=== PATIENT | male | born 1950 | race Hispanic/Latino ===

== ENCOUNTER 2018-05-19 08:27 | Observation (INO) | payer OTHER ==
--- OUTSIDE RECORDS SUMMARY | 2018-05-19 08:29 | XMS REPORT | Clinical Summary ---
:1950 Author Organization [facility] Address [address] [place] [address] Phone Care Team Providers Name Role Phone Unavailable Primary Care Provider Unavailable Allergies Active Allergy Reactions Severity Noted Date Comments Penicillins Swelling 05/02/2018 Meloxicam Rash Low 05/02/2018 Fenoprofen Rash Low 05/02/2018 Current Medications Prescription Sig. Disp. Refills Start Date End Date Status verapamil Take 120 mg by Active (CALAN-SR) 120 MG mouth daily. ER tablet SITagliptin Take 100 mg by Active (JANUVIA) 100 MG mouth daily. tablet glipiZIDE Take 5 mg by mouth Active (GLUCOTROL) 5 MG daily. tablet simvastatin (ZOCOR) Take 20 mg by mouth Active 20 MG tablet nightly. metFORMIN Take 500 mg by Active (GLUCOPHAGE) 500 MG mouth 2 (two) times tablet daily with breakfast and dinner. tamsulosin (FLOMAX) Take 0.4 mg by Active 0.4 mg Cap 24 hr mouth daily. capsule acetaminophen-codei Take 1 tablet by 30 tablet 0 05/10/2018 05/20/2018 Active ne (TYLENOL #3) mouth every 4 300-30 mg per (four) hours as tablet needed for Pain for up to 10 days. Max Daily Amount: 6 tablets sulfamethoxazole-tr Take 1 tablet (160 14 tablet 0 05/10/2018 05/17/2018 imethoprim (BACTRIM mg of trimethoprim DS) 800-160 mg per total) by mouth 2 tablet (two) times daily for 7 days. 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 Anesthesia Event Louis Desir MD 05/10/2018 Procedure Pass 05/10/2018 Surgery Luigi Rodney PLICATION,PENILE 05/03/2018 Orders Only Family Medicine Luigi Rodney Peyronie's disease MD (Primary Dx);Induration penis plastica 05/02/2018 Hospital Encounter Pre-Admission Luigi Rodney Testing 05/02/2018 Orders Only General Internal Medicine after 05/18/2017 Social History Tobacco Use Types Packs/Day Years Used Date Never Smoker Smokeless Tobacco: Never Used Alcohol Use Drinks/Week oz/Week Comments Yes rarely Sex Assigned at Date Recorded Not on file Last Filed Vital Signs Vital Sign Reading Time Taken Blood Pressure 119/67 05/10/2018 1:15 PM CDT Pulse 82 05/10/2018 1:15 PM CDT Temperature 36.4 C (97.6 F) 05/10/2018 1:15 PM CDT Respiratory Rate 20 05/10/2018 1:15 PM CDT Oxygen Saturation 95% 05/10/2018 1:15 PM CDT Inhaled Oxygen Concentration - - Weight 91.3 kg (201 lb 3.2 oz) 05/10/2018 10:03 AM CDT Height 180.3 cm (5' 11") 05/10/2018 10:03 AM CDT Body Mass Index 28.06 05/10/2018 10:03 AM CDT Plan of Treatment Not on file Procedures Procedure Name Priority Date/Time Associated Diagnosis Comments PLICATION,PENILE 05/10/2018 11:30 AM CDT Peyronie's disease Case Notes 1 HR PER HEIDE after 05/18/2017 Results POC-Glucose meter (05/10/2018 10:34 AM) Component Value Ref Range POC-Glucose Meter 138 (H)Comment: TESTED AT [address] 70 - 110 mg/[place] [id number] Specimen Performing Laboratory Blood [facility] [address] [place] [address] CBC with platelet count + automated diff (05/10/2018 10:17 AM) Component Value Ref Range WBC 6.1 3.5 - 10.5 K/L RBC 4.64 4.63 - 6.08 M/L Hemoglobin 14.7 13.7 - 17.5 GM/DL Hematocrit 43.7 40.1 - 51.0 % MCV 94.2 (H) 79.0 - 92.2 fL MCH 31.7 25.7 - 32.2 pg MCHC 33.6 32.3 - 36.5 GM/DL RDW 12.4 11.6 - 14.4 % Platelets 255 150 - 450 K/CU MM MPV 9.8 9.4 - 12.4 fL nRBC 0 0 - 0 /100 WBC % Neutros 56 % % Lymphs 33 % % Monos 8 % % Eos 1 % % Baso 1 % # Neutros 3.44 1.78 - 5.38 K/L # Lymphs 2.02 1.32 - 3.57 K/L # Monos 0.51 0.30 - 0.82 K/L # Eos 0.08 0.04 - 0.54 K/L # Baso 0.03 0.01 - 0.08 K/L Immature Granulocytes-Relative 0 0 - 1 % Specimen Performing Laboratory Blood [address] [address] CBC with platelet count + automated diff (05/10/2018 10:17 AM) Specimen Performing Laboratory Blood Narrative The following orders were created for panel order CBC with platelet count + automated diff. Procedure Abnormality Status --------- ------ CBC with platelet count ...[[id number]]AbnormalFinal result Please view results for these tests on the individual orders. BUN and Creatinine (05/02/2018 11:21 AM) Component Value Ref Range BUN 19 7 - 21 mg/dL Creatinine 1.13Comment: Specimen slightly hemolyzed 0.57 - 1.25 mg/dL EGFR 65Comment: ESTIMATED GFR IS NOT ACCURATE mL/min/1.73 sq m CREATININE CLEARANCE IN PREDICTING GLOMERULAR FILTRATION RATE. ESTIMATED GFR IS NOT APPLICABLE FOR DIALYSIS PATIENTS. Specimen Performing Laboratory Blood [address] [address] Hemoglobin (05/02/2018 11:21 AM) Component Value Ref Range Hemoglobin 15.4 13.7 - 17.5 GM/DL Specimen Performing Laboratory Blood [facility] [address] [address] Glucose (05/02/2018 11:21 AM) Component Value Ref Range Glucose 258 (H) 70 - 105 mg/dL Specimen Performing Laboratory Blood [address] [address] Electrolytes (05/02/2018 11:21 AM) Component Value Ref Range Sodium 136 136 - 145 meq/L Potassium 3.9Comment: Specimen slightly hemolyzed 3.5 - 5.1 meq/L Chloride 104 98 - 107 meq/L CO2 22 22 - 29 meq/L Specimen Performing Laboratory Blood [address] [address] ECG 12 lead (05/02/2018 11:20 AM) Specimen Performing Laboratory GE MUSE Narrative Ventricular Rate 71 BPM Atrial Rate 71 BPM P-R Interval 160 ms QRS Duration 112 ms Q-T Interval 394 ms QTC Calculation(Bazett) 428 ms P [place] 63 degrees R [place] 25 degrees T [place] 28 degrees Sinus rhythm with Premature atrial complexes in a pattern of bigeminy Otherwise normal ECG No previous ECGs available Confirmed by MD MCBRIDE YOCHAI ([id number]) on 05/03/2018 5:56:24 AM Procedure Note Interface, External Ris In - 05/03/2018 5:56 AM CDT Ventricular Rate 71 BPM Atrial Rate 71 BPM P-R Interval 160 ms QRS Duration 112 ms Q-T Interval 394 ms QTC Calculation(Bazett) 428 ms P [place] 63 degrees R [place] 25 degrees T [place] 28 degrees Sinus rhythm with Premature atrial complexes in a pattern of bigeminy Otherwise normal ECG No previous ECGs available Confirmed by MD MCBRIDE YOCHAI ([id number]) on 05/03/2018 5:56:24 AM after 05/18/2017
--- OUTSIDE RECORDS SUMMARY | 2018-05-19 08:29 | XMS REPORT ---
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 Assessment Benign prostatic hyperplasia with N40.1 Active lower urinary tract symptoms Medications Medication Code Code Instructions Start End Status Dosage System Date Date Simvastatin ND 46635073245 20 MG Orally Active 1 tablet Once a day in the evening ND 91759081967 100 MG Orally Active 1 tablet Once a day Verapamil HCl ND 57136039996 120 MG Orally Active 1 tablet Three times a day Tamsulosin HCl ND 79222645808 0.4 MG Orally February 02Aug 01, Active 1 capsule Once a day 2017 2018 Results Name Result Date Reference Range Unit Abnormality Flag URINALYSIS AUTO W/O SCOPE (47359) ----AL neg [id number] ----NIT neg [id number] ----PROTEIN neg [id number] ----pH 5.5 [id number] ----BLO neg [id number] ----GLUCOSE 2+ [id number] ----BILIRUBIN neg [id number] ----KETONES neg [id number] ----SPECIFIC GRAVITY 1.015 [id number] PVR ----PVR 0 [id number] Summary Purpose [employer] Submission
--- OUTSIDE RECORDS SUMMARY | 2018-05-19 08:29 | XMS REPORT ---
:1950 Author Organization [facility] Address [address] [place] [address] Care Team Providers Name Role Phone CHARLI FORRESTER Unavailable Unavailable Problems This patient has no known problems. Allergies, Adverse Reactions, Alerts This patient has no known allergies or adverse reactions. Medications This patient has no known medications. Results Test Description Test Time Test Comments Text Results Atomic Results Result Comments CBC W/PLT COUNT & AUTO DIFFERENTIAL 2018-05-10 10:57:00 Test Item Value Reference Range Comments WHITE BLOOD CELL COUNT (BEAKER) (test aosz=885) 6.1 K/ L 3.5-10.5 RED BLOOD CELL COUNT (BEAKER) (test rcgx=052) 4.64 M/ L 4.63-6.08 HEMOGLOBIN (BEAKER) (test rvdr=823) 14.7 GM/DL 13.7-17.5 HEMATOCRIT (BEAKER) (test fiiy=447) 43.7 % 40.1-51.0 MEAN CORPUSCULAR VOLUME (BEAKER) (test uxfk=712) 94.2 fL 79.0-92.2 MEAN CORPUSCULAR HEMOGLOBIN (BEAKER) (test tvof=215) 31.7 pg 25.7-32.2 MEAN CORPUSCULAR HEMOGLOBIN CONC (BEAKER) (test fyvb=852) 33.6 GM/DL 32.3- 36.5 RED CELL DISTRIBUTION WIDTH (BEAKER) (test oebt=626) 12.4 % 11.6-14.4 PLATELET COUNT (BEAKER) (test bhqp=864) 255 K/CU MM 150-450 MEAN PLATELET VOLUME (BEAKER) (test jepd=254) 9.8 fL 9.4-12.4 NUCLEATED RED BLOOD CELLS (BEAKER) (test jbom=582) 0 /100 WBC 0-0 NEUTROPHILS RELATIVE PERCENT (BEAKER) (test jfkd=559) 56 % LYMPHOCYTES RELATIVE PERCENT (BEAKER) (test dcym=496) 33 % MONOCYTES RELATIVE PERCENT (BEAKER) (test xrjp=797) 8 % EOSINOPHILS RELATIVE PERCENT (BEAKER) (test tnpn=972) 1 % BASOPHILS RELATIVE PERCENT (BEAKER) (test xllk=236) 1 % NEUTROPHILS ABSOLUTE COUNT (BEAKER) (test bzxp=468) 3.44 K/ L 1.78-5.38 LYMPHOCYTES ABSOLUTE COUNT (BEAKER) (test cvst=877) 2.02 K/ L 1.32-3.57 MONOCYTES ABSOLUTE COUNT (BEAKER) (test iofd=823) 0.51 K/ L 0.30-0.82 EOSINOPHILS ABSOLUTE COUNT (BEAKER) (test wqam=775) 0.08 K/ L 0.04-0.54 BASOPHILS ABSOLUTE COUNT (BEAKER) (test jajk=796) 0.03 K/ L 0.01-0.08 IMMATURE GRANULOCYTES-RELATIVE PERCENT (BEAKER) (test 0 % 0-1 hbia=9463) POCT-GLUCOSE [id number] 10:40:00 Test Item Value Reference Range Comments POC-GLUCOSE METER (BEAKER) 138 mg/dL 70-110 TESTED AT [facility] [address] [facility] (test bkzi=2882) [facility] [address] [id number] 13:26:00 Test Item Value Reference Range Comments SODIUM (BEAKER) (test txpb=094) 136 meq/L 136-145 POTASSIUM (BEAKER) (test 3.9 meq/L 3.5-5.1 Specimen slightly hemolyzed xcww=410) CHLORIDE (BEAKER) (test 104 meq/L 98-107 jlic=087) CO2 (BEAKER) (test hwfz=276) 22 meq/L 22-29 [id number] 13:26:00 Test Item Value Reference Range Comments GLUCOSE RANDOM (BEAKER) (test ychj=624) 258 mg/dL 70-105 BUN AND [id number] 13:26:00 Test Item Value Reference Range Comments BLOOD UREA NITROGEN 19 mg/dL 7-21 (BEAKER) (test ljoq=427) CREATININE (BEAKER) (test 1.13 mg/dL 0.57-1.25 Specimen slightly vhsp=130) hemolyzed EGFR (BEAKER) (test 65 mL/min/1.73 sq m ESTIMATED GFR IS NOT tarl=8154) ACCURATE CREATININE CLEARANCE IN PREDICTING GLOMERULAR FILTRATION RATE. ESTIMATED GFR IS NOT APPLICABLE FOR DIALYSIS PATIENTS. [id number] 11:35:00 Test Item Value Reference Range Comments HEMOGLOBIN (KALEE) (test vjgz=685) 15.4 GM/DL 13.7-17.5
[2018-05-19] MEDS ORDERED: NA CHLORIDE 0.9% 500 ML ONE (08:56)
[2018-05-19 09:17] LABS: Absolute Lymphocytes (CBC) 1.9 K/uL (0.7-4.9); Absolute Monocytes 0.5 K/uL (0.1-1.3); Absolute Neutrophil 3.6 K/uL (1.8-8.0); Basophils % 0.8 % (0-1.3); Eosinophils % 1.5 % (0-4.4); Hematocrit 47.9 % (39.6-49.0); MCH 31.8 pg (27.0-35.0); MCV 94.5 fL (80-100); Monocytes % 8.5 % (3.3-12.3); RBC Red Blood Cell Count 5.07 M/uL (4.33-5.43)
--- NOTE | 2018-05-19 09:26 | RAD REPORT ---
EXAM DESCRIPTION: RAD - Chest Single View - 05/19/2018 9:12 am CLINICAL HISTORY: Intermittent chest pain COMPARISON: August 2016 TECHNIQUE: AP portable chest image was obtained 0903 hours . FINDINGS: No focal lung parenchymal process seen. Interstitial markings are prominent but stable. He art and vasculature are normal. No measurable pleural effusion and no pneumothorax. No acute bony abn ormality seen. No acute aortic findings suspected. IMPRESSION: No acute cardiopulmonary process. Above detailed chest findings are stable back to August 2016.
[2018-05-19 09:46] LABS: BUN Blood Urea Nitrogen 16 mg/dL (7-18); Bicarbonate 28 mmol/L (21-32); Glucose Level 273 mg/dL (74-106); Magnesium 2.4 mg/dL (1.8-2.4); NT PRO-BNP 49 pg/mL (<125); Potassium 3.9 mmol/L (3.5-5.1); Sodium Level 135 mmol/L (136-145); Troponin (Emerg Dept Use Only) < 0.02 ng/mL (0.0-0.045)
[2018-05-19 09:50] LABS: Urine Bacteria <20 /HPF (NONE SEEN); Urine RBC <5 /HPF (NONE SEEN)
[2018-05-19 09:50] LABS: Urine Blood NEGATIVE (NEG); Urine Glucose 2+ (NEG); Urine Protein NEGATIVE (NEG); Urine Specific Gravity 1.025 (1.005-1.030); Urine pH 5.5 (5.0-7.0)
[2018-05-19 09:51] LABS: Urine Culture Reflex Order NOT NEEDED
--- NOTE | 2018-05-19 10:16 | EDPHYS ---
Physician Documentation [facility] Name: Tim Hair Age: 67 yrs Sex: Male : 1950 Arrival Date: 05/19/2018 Time: 08:27 Bed 20 Private MD: Lucho Pathak E ED Physician Isak Linares HPI: 05/19 08:55 This 67 yrs old Male presents to ER via Ambulatory with complaints of Chest rn Pain. 08:55 The patient or guardian reports chest pain that is located primarily in the substernal rn area. 08:55 Onset: 1 week(s) ago. The pain does not radiate. Associated signs and symptoms: rn Pertinent positives: shortness of breath, Pertinent negatives: abdominal pain. 08:55 The chest pain is described as burning, a heaviness. Duration: The patient or guardian rn reports multiple episodes, that are intermittent, the episodes last approximately 5 minute(s). Modifying factors: The symptoms are alleviated by nothing. the symptoms are aggravated by nothing. Severity of pain: At its worst the pain was mild in the emergency department the pain is unchanged. The patient has not experienced similar symptoms in the past. The patient has not recently seen a physician. Reports intermittent chest pain, burning/pressure, lasts approx 5 minutes, happens randomly over last week, had penile surgery 2-3 weeks ago for penile growth, not invasive surgery. + hx of DVT LUE but after orthopedic surgery on affected arm. NO fever. + fatigue and generalized weakness. NO abd pain/vomiting/diarrhea. . Historical: - Allergies: 08:36 Mobic; ss 08:36 PENICILLINS; ss 08:36 Nalfon; ss - Home Meds: 09:11 verapamil Oral [Active]; Januvia oral oral [Active]; glipizide 5 mg Oral tab 1 tab once jl7 daily [Active]; simvastatin 20 mg Oral tab 1 tab once daily [Active]; Metformin Oral [Active]; tamsulosin 0.4 mg oral cp24 1 cap once daily [Active]; - PMHx: 08:36 Hypertension; High Cholesterol; Diabetes - NIDDM; ss - Immunization history:: Adult Immunizations up to date. - Social history:: Smoking status: Patient/guardian denies using tobacco. - Ebola Screening: : Patient denies exposure to infectious person Patient denies travel to an Ebola-affected area in the 21 days before illness onset. - Family history:: not pertinent. - Hospitalizations: : No recent hospitalization is reported. ROS: 08:58 Constitutional: Negative for fever, chills, and weight loss, Eyes: Negative for injury, rn pain, redness, and discharge, Neck: Negative for injury, pain, and swelling, Cardiovascular: + chest pain Respiratory: + sob, neg for cough Abdomen/GI: Negative for abdominal pain, nausea, vomiting, diarrhea, and constipation, MS/Extremity: Negative for injury and deformity, Skin: Negative for injury, rash, and discoloration, Neuro: Negative for headache, numbness, tingling, and seizure. Exam: 08:58 Constitutional: This is a well developed, well nourished patient who is awake, alert, rn and in no acute distress. Head/Face: Normocephalic, atraumatic. Eyes: Pupils equal round and reactive to light, extra-ocular motions intact. Lids and lashes normal. Conjunctiva and sclera are non-icteric and not injected. Cornea within normal limits. Periorbital areas with no swelling, redness, or edema. Neck: Trachea midline, no thyromegaly or masses palpated, and no cervical lymphadenopathy. Supple, full range of motion without nuchal rigidity, or vertebral point tenderness. No Meningismus. Cardiovascular: Regular rate and rhythm with a normal S1 and S2. No gallops, murmurs, or rubs. Normal PMI, no JVD. No pulse deficits. Respiratory: Lungs have equal breath sounds bilaterally, clear to auscultation and percussion. No rales, rhonchi or wheezes noted. No increased work of breathing, no retractions or nasal flaring. Abdomen/GI: Soft, non-tender, with normal bowel sounds. No distension or tympany. No guarding or rebound. No evidence of tenderness throughout. Skin: Warm, dry MS/ Extremity: Pulses equal, no cyanosis. Neurovascular intact. Full, normal range of motion. Equal circumference. Mild tenderness posterior right popliteal fossa Neuro: Awake and alert, GCS 15, oriented to person, place, time, and situation. Cranial nerves II-XII grossly intact. Motor strength 5/5 in all extremities. Sensory grossly intact. Vital Signs: 08:36 BP 167 / 83; Pulse 68; Resp 17; Temp 97.0(TE); Pulse Ox 100% on R/A; Weight 90.72 kg; 3 Height 5 ft. 11 in. (180.34 cm); Pain 0/10; 08:47 Temp 97(TE); jl7 09:38 BP 154 / 84; Pulse 67; Resp 16 S; Pulse Ox 100% on R/A; Pain 0/10; jl7 10:30 BP 125 / 79; Pulse 66; Resp 16 S; Pulse Ox 98% on R/A; jl7 11:01 BP 124 / 74; Pulse 67; Resp 18 S; Pulse Ox 97% on R/A; jl7 12:19 BP 132 / 78; Pulse 68; Resp 16 S; Pulse Ox 99% on R/A; jl7 13:00 BP 137 / 87; Pulse 64; Resp 16 S; Pulse Ox 98% on R/A; jl7 13:40 BP 146 / 72; Pulse 66; Resp 16 S; Pulse Ox 98% on R/A; Pain 0/10; jl7 08:36 Body Mass Index 27.89 (90.72 kg, 180.34 cm) formerly [facility] MDM: 08:31 Patient medically screened. rn 10:13 Differential diagnosis: acute pericarditis, anxiety, coronary artery disease chest wall rn pain, costochondritis, esophagitis, gastritis, gastroesophageal reflux disease (GERD), pericarditis, pleurisy, pneumonia, pneumothorax, stable angina. The patient was given aspirin in the Emergency Department. Data reviewed: vital signs, nurses notes, lab test result(s), EKG, radiologic studies, plain films, and as a result, I will admit patient. 10:14 Counseling: I had a detailed discussion with the patient and/or guardian regarding: the rn historical points, exam findings, and any diagnostic results supporting the discharge/admit diagnosis, lab results, radiology results, the need for further work-up and treatment in the hospital. Admission orders: after a detailed discussion of the patient's condition and case, the admit orders are written by me. ED course: Neg w/u here, but intermittent dyspnea on exertion and chest pain, will admit for cardiac w/u. . 05/19 08:46 Order name: Basic Metabolic Panel; Complete Time: 09:52 rn 05/19 08:46 Order name: CBC with Diff; Complete Time: 09:37 rn 05/19 08:46 Order name: Magnesium; Complete Time: 09:52 rn 05/19 08:46 Order name: NT PRO-BNP; Complete Time: 09:52 rn 05/19 08:46 Order name: Troponin (emerg Dept Use Only); Complete Time: 09:52 rn 05/19 08:46 Order name: Urine Microscopic Only; Complete Time: 09:52 rn 05/19 08:46 Order name: XRAY Chest (1 view); Complete Time: 09:37 rn 05/19 08:46 Order name: EKG; Complete Time: 08:47 rn 05/19 08:46 Order name: Cardiac monitoring; Complete Time: 09:01 rn 05/19 08:46 Order name: EKG - Nurse/Tech; Complete Time: 09: rn 05/19 08:46 Order name: IV Saline Lock; Complete Time: 09:05 rn 05/19 08:58 Order name: Extremity Venous Uni Ltd US; Complete Time: 10:56 rn 05/19 09:03 Order name: Urine Dipstick--Ancillary (enter results); Complete Time: 09:52 eb 05/19 08:46 Order name: Labs collected and sent; Complete Time: 09:05 rn 05/19 08:46 Order name: O2 Per Protocol; Complete Time: 09: rn 05/19 08:46 Order name: O2 Sat Monitoring; Complete Time: 09: rn 05/19 08:46 Order name: Urine Dipstick-Ancillary (obtain specimen); Complete Time: 09:00 rn 05/19 08:46 Order name: Glucose Level; Complete Time: 09:04 rn Administered Medications: 09:04 Drug: NS 0.9% 500 ml Route: IV; Rate: bolus; Site: right antecubital; jl7 09:45 Follow up: IV Status: Completed infusion jl7 Point of Care Testing: Blood Glucose: 09:00 Blood Glucose: 240 mg/dL; jl7 11:01 Blood Glucose: 195 mg/dL; jl7 Ranges: Critical Glucose Levels:Adult <50 mg/dl or >400 mg/dl <40 mg/dl or >180 mg/dl Disposition: 05/19/18 10:15 Hospitalization ordered by Che Renae for Observation. Preliminary diagnosis is Chest pain, unspecified. - Bed requested for Telemetry/MedSurg (observation). - Status is Observation. jl7 - Condition is Stable. - Problem is new. - Symptoms have improved. UTI on Admission? No Signatures: Dispatcher [employer] Manasa Olvera, RN RN Isak Hughes MD MD rn Smirch, Shelby RN RN Fernando Lowery RN RN jl7 Corrections: (The following items were deleted from the chart) 13:05 10:15 Hospitalization Ordered by Che Renae MD for Observation. Preliminary dw diagnosis is Chest pain, unspecified. Bed requested for Telemetry/MedSurg (observation). Status is Observation. Condition is Stable. Problem is new. Symptoms have improved. UTI on Admission? No. rn 13:46 13:05 05/19/2018 10:15 Hospitalization Ordered by Che Renae MD for Observation. jl7 Preliminary diagnosis is Chest pain, unspecified. Bed requested for Telemetry/MedSurg (observation). Status is Observation. Condition is Stable. Problem is new. Symptoms have improved. UTI on Admission? No. dw
--- NOTE | 2018-05-19 10:16 | ER ---
Nurse's Notes [facility] Name: Tim Hair Age: 67 yrs Sex: Male : 1950 Arrival Date: 05/19/2018 Time: 08:27 Bed 20 Private MD: Lucho Pathak E Diagnosis: Chest pain, unspecified Presentation: 05/19 08:34 Presenting complaint: Patient states: intermittent CP x 1 week. Denies pain at this ss time. Transition of care: patient was not received from another setting of care. Onset of symptoms was May 12, 2018. Risk Assessment: Do you want to hurt yourself or someone else? Patient reports no desire to harm self or others. Initial Sepsis Screen: Does the patient meet any 2 criteria? No. Patient's initial sepsis screen is negative. Does the patient have a suspected source of infection? No. Patient's initial sepsis screen is negative. Care prior to arrival: None. 08:34 Method Of Arrival: Ambulatory ss 08:34 Acuity: RAIMUNDO 3 ss Historical: - Allergies: 08:36 Mobic; ss 08:36 PENICILLINS; ss 08:36 Nalfon; ss - Home Meds: 09:11 verapamil Oral [Active]; Januvia oral oral [Active]; glipizide 5 mg Oral tab 1 tab once jl7 daily [Active]; simvastatin 20 mg Oral tab 1 tab once daily [Active]; Metformin Oral [Active]; tamsulosin 0.4 mg oral cp24 1 cap once daily [Active]; - PMHx: 08:36 Hypertension; High Cholesterol; Diabetes - NIDDM; ss - Immunization history:: Adult Immunizations up to date. - Social history:: Smoking status: Patient/guardian denies using tobacco. - Ebola Screening: : Patient denies exposure to infectious person Patient denies travel to an Ebola-affected area in the 21 days before illness onset. - Family history:: not pertinent. - Hospitalizations: : No recent hospitalization is reported. Screenin:05 Abuse screen: Denies threats or abuse. Denies injuries from another. Nutritional jl7 screening: No deficits noted. Tuberculosis screening: No symptoms or risk factors identified. Fall Risk IV access (20 points). Total Humphrey Fall Scale indicates No Risk (0-24 pts). Assessment: 09:05 General: Appears in no apparent distress. uncomfortable, Behavior is calm, cooperative, jl7 appropriate for age. Pain: Complains of pain in mid-sternal area Pain does not radiate. Pain currently is 0 out of 10 on a pain scale. at worst was 0 out of 10 on a pain scale. Quality of pain is described as pressure, Pain began 1 week ago Is intermittent. Neuro: Level of Consciousness is awake, alert, obeys commands, Oriented to person, place, time, situation. Cardiovascular: Heart tones S1 S2 present Patient's skin is warm and dry. Respiratory: Airway is patent Respiratory effort is even, unlabored, Respiratory pattern is regular, symmetrical, Breath sounds are clear bilaterally. GI: No signs and/or symptoms were reported involving the gastrointestinal system. : No signs and/or symptoms were reported regarding the genitourinary system. EENT: No signs and/or symptoms were reported regarding the EENT system. Derm: Skin is pink, warm \T\ dry. Musculoskeletal: No signs and/or symptoms reported regarding the musculoskeletal system. 10:00 Reassessment: Patient appears in no apparent distress at this time. No changes from jl7 previously documented assessment. Patient and/or family updated on plan of care and expected duration. Pain level reassessed. Patient is alert, oriented x 3, equal unlabored respirations, skin warm/dry/pink. 11:00 Reassessment: Patient appears in no apparent distress at this time. No changes from jl7 previously documented assessment. Patient and/or family updated on plan of care and expected duration. Pain level reassessed. Patient is alert, oriented x 3, equal unlabored respirations, skin warm/dry/pink. 12:19 Reassessment: Patient appears in no apparent distress at this time. Patient and/or jl7 family updated on plan of care and expected duration. Pain level reassessed. Patient is alert, oriented x 3, equal unlabored respirations, skin warm/dry/pink. 13:20 Reassessment: Patient appears in no apparent distress at this time. Patient and/or jl7 family updated on plan of care and expected duration. Pain level reassessed. Patient is alert, oriented x 3, equal unlabored respirations, skin warm/dry/pink. Vital Signs: 08:36 BP 167 / 83; Pulse 68; Resp 17; Temp 97.0(TE); Pulse Ox 100% on R/A; Weight 90.72 kg; dh3 Height 5 ft. 11 in. (180.34 cm); Pain 0/10; 08:47 Temp 97(TE); jl7 09:38 BP 154 / 84; Pulse 67; Resp 16 S; Pulse Ox 100% on R/A; Pain 0/10; jl7 10:30 BP 125 / 79; Pulse 66; Resp 16 S; Pulse Ox 98% on R/A; jl7 11:01 BP 124 / 74; Pulse 67; Resp 18 S; Pulse Ox 97% on R/A; jl7 12:19 BP 132 / 78; Pulse 68; Resp 16 S; Pulse Ox 99% on R/A; jl7 13:00 BP 137 / 87; Pulse 64; Resp 16 S; Pulse Ox 98% on R/A; jl7 13:40 BP 146 / 72; Pulse 66; Resp 16 S; Pulse Ox 98% on R/A; Pain 0/10; jl7 08:36 Body Mass Index 27.89 (90.72 kg, 180.34 cm) [facility] ED Course: 08:27 Patient arrived in ED. mr 08:28 Lucho Pathak MD is Private Physician. mr 08:31 Isak Linares MD is Attending Physician. rn 08:32 EKG done, by waste handling technician. reviewed by Isak Linares MD. at1 08:33 Fernando Colorado RN is Primary Nurse. jl7 08:36 Triage completed. ss 08:36 Arm band placed on right wrist. ss 08:59 Urine collected: clean catch specimen, clear. [facility] 09:05 Initial lab(s) drawn, by vt, sent to lab. Inserted saline lock: 22 gauge in right jl7 antecubital area, using aseptic technique. Blood collected. Patient maintains SpO2 saturation greater than 95% on room air. 09:05 Patient has correct armband on for positive identification. Placed in gown. Bed in low jl7 position. Call light in reach. Side rails up X 1. cardiovascular sonographer on. Pulse ox on. NIBP on. Warm blanket given. 09:07 XRAY Chest (1 view) In Process Unspecified. EDMS 10:04 Extremity Venous Uni Ltd US In Process Unspecified. EDMS 10:15 Che Renae MD is Hospitalizing Provider. rn 13:00 No provider procedures requiring assistance completed. Patient admitted, IV remains in jl7 place. intact, No redness/swelling at site. Administered Medications: 09:04 Drug: NS 0.9% 500 ml Route: IV; Rate: bolus; Site: right antecubital; [facility] 09:45 Follow up: IV Status: Completed infusion [facility] Point of Care Testing: Blood Glucose: 09:00 Blood Glucose: 240 mg/dL; jl7 11:01 Blood Glucose: 195 mg/dL; [facility] Ranges: Outcome: 10:15 Decision to Hospitalize by Provider. rn 13:45 Admitted to Med/surg accompanied by tech, family with patient, via wheelchair, room [facility] 229, with chart, Report called to NORBERT Gautam 13:45 Condition: stable 13:45 Discharge instructions given to patient, family, Instructed on the need for admit, Demonstrated understanding of instructions. 13:46 Patient left the ED. [facility] Signatures: Dispatcher [employer] EDKS KipPametoIsak MD MD rn Smirch, Shelby, RN RN ss Gonzales, Amanda, activities attendant EKG Tat1 Fernando Colorado RN RN 7 Sarah Beth Gray 3 Corrections: (The following items were deleted from the chart) 09:00 08:36 BP 167 / 83; Pulse 68bpm; Resp 17bpm; Pulse Ox 100% RA; 90.72 kg; Height 5 ft. 11 3 in.; BMI: 27.8; Pain 0/10;
--- NOTE | 2018-05-19 10:50 | RAD REPORT ---
EXAM DESCRIPTION: US right lower extremity venous ultrasound 05/19/2018 10:08 am CLINICAL HISTORY: Right leg pain and swelling. COMPARISON: None. FINDINGS: Right common femoral, superficial femoral, popliteal and right posterior tibial veins are compressible and demonstrate augmentation. Doppler demonstrates good flow. 5.6 centimeter cystic mass is present within the posterior right knee which is palpable compatible wi th a Patton cyst IMPRESSION: No evidence of deep venous thrombosis involving the right lower extremity. 5.6 centimeter Patton's cyst
--- NOTE | 2018-05-19 13:46 | EKG ---
Test Date: 2018-05-19 Test Time: 08:36:50 Storage Garage Attendant: ISIDRO MEASUREMENT RESULTS: Intervals: Rate: 71 ME: 168 QRSD: 104 QT: 388 QTc: 421 [place]: P: 65 ME: 168 QRS: 47 T: 34 INTERPRETIVE STATEMENTS: Normal sinus rhythm Normal ECG Compared to ECG 05/10/2012 23:34:22 Left ventricular hypertrophy no longer present ST (T wave) deviation no longer present Electronically Signed On 05-19-18 13:45:24 CDT by Miguel Bell
[2018-05-19] MEDS ORDERED: ONDANSETRON 4 MG/2 ML VIAL IV PRN (13:48)
[2018-05-19] MEDS ORDERED: ACETAMINOPHEN 500 MG TAB PO PRN (13:48)
[2018-05-19 13:56] VITALS: BMI 27.8
[2018-05-19 14:56] LABS: Thyroid Stimulating Hormone 0.814 uIU/mL (0.360-3.740); Troponin I < 0.02 ng/mL (0.0-0.045)
[2018-05-19] MEDS ORDERED: INFLUENZA VACCINE (for 3y+) 0.5 ML DOSE IMVAC ONE (15:00)
[2018-05-19] MEDS ORDERED: GLUCAGON 1 MG/VIAL IM PRN (17:10)
[2018-05-19] MEDS ORDERED: D50W 25 GM/50 ML SYRINGE IV PRN (17:10)
--- NOTE | 2018-05-19 17:18 | P.HP ---
Certification for Inpatient Patient admitted to: Observation With expected LOS: <2 Midnights Patient will require the following post-hospital care: None Practitioner: I am a practitioner with admitting privileges, knowledge of patient current condition, hospital course, and medical plan of care. Services: Services provided to patient in accordance with Admission requirements found in Title 42 Section 412.3 of the Code of Federal Regulations Patient History Date of Service: 05/20/18 Primary Care Provider: Dr Patel - Cardiology Reason for admission: Chest Pain History of Present Illness: This is a 67-year-old male with significant past medical history of hypertension , type 2 diabetes and hypercholesterol who came to the ED complaining of having some chest pain. The chest pain was on the left side and was nonradiating. Pain was worse when he 1st got up in the morning. No other complaints to offer at this time. Denies having abdominal pain nausea vomiting shortness of breath or any other associated symptoms at this time. Allergies Penicillins Allergy (Intermediate, Verified 05/10/12 21:59) Itching Home Medications: Glipizide [Glucotrol] 5 mg PO DAILY 05/19/18 Metformin HCl [Glucophage*] 500 mg PO BIDWM 05/19/18 Simvastatin 20 mg PO DAILY 05/19/18 Sitagliptin Phosphate [Januvia*] 50 mg PO DAILY 05/19/18 Tamsulosin [Flomax*] 0.4 mg PO BEDTIME 05/19/18 Verapamil HCl [Verapamil ER] 240 mg PO DAILY 05/19/18 Nitroglycerin [Nitrostat*] 0.4 mg SL PRN PRN #25 tab 05/20/18 - Past Medical/Surgical History Has patient received pneumonia vaccine in the past: Yes Diabetic: Yes -: HTN -: DM -: HLP -: back surgery x2 -: left shoulder sx -: right knee sx -: penile sx - Family History Family History: Reviewed- Non-Contributory - Social History Smoking Status: Never smoker Alcohol use: Yes CD- Drugs: No Caffeine use: Yes Place of Residence: Home Review of Systems 10-point ROS is otherwise unremarkable Physical Examination - Vital Signs Temperature: 97 F Blood Pressure: 146/72 Pulse: 66 Respirations: 16 - Physical Exam General: Alert, In no apparent distress HEENT: Atraumatic, PERRLA, Mucous membr. moist/pink, EOMI, Sclerae nonicteric Neck: Supple, 2+ carotid pulse no bruit, No LAD, Without JVD or thyroid abnormality Respiratory: Clear to auscultation bilaterally, Normal air movement Cardiovascular: Regular rate/rhythm, Normal S1 S2 Gastrointestinal: Normal bowel sounds, No tenderness Musculoskeletal: No tenderness Integumentary: No rashes Neurological: Normal gait, Normal speech, Normal strength at 5/5 x4 extr, Normal tone, Normal affect Lymphatics: No axilla or inguinal lymphadenopathy - Studies Laboratory Data (last 24 hrs) 05/19/18 09:00: WBC 6.2, Hgb 16.1, Hct 47.9, Plt Count 279 05/19/18 09:00: Sodium 135 L, Potassium 3.9, BUN 16, Creatinine 1.30, Glucose 273 H, Magnesium 2.4 Assessment and Plan - Problems (Diagnosis) (1) Chest pain Current Visit: Yes Status: Acute Plan: Atypical Chest pain. troponin x 2 negative and EKG negative -Cardiology consulted. Recc Appreciated -ECHO pending -ACS medication : ASA, Cholestrol and BB Qualifiers: Chest pain type: unspecified Qualified Code(s): R07.9 - Chest pain, unspecified (2) HTN (hypertension) Current Visit: Yes Status: Chronic Plan: restart Home medication Qualifiers: Hypertension type: essential hypertension Qualified Code(s): I10 - Essential (primary) hypertension (3) Diabetes Current Visit: Yes Status: Chronic Plan: ISS -ACHS BS Qualifiers: Diabetes mellitus type: type 2 Diabetes mellitus terminal press operator insulin use: without terminal press operator use Diabetes mellitus complication status: without complication Qualified Code(s): E11.9 - Type 2 diabetes mellitus without complications (4) Hypercholesteremia Current Visit: Yes Status: Chronic Plan: Restart hOme medication Discharge Plan: Home Plan to discharge in: 48 Hours - Advance Directives Does patient have a Living Will: No Does patient have a Durable POA for Healthcare: No - Code Status/Comfort Care Code Status Assessed: Yes Critical Care: No
[2018-05-19] MEDS ORDERED: TAMSULOSIN 0.4 MG SR CAP PO SCH (21:00)
[2018-05-19] MEDS ORDERED: ATORVASTATIN 10 MG TAB PO SCH (21:00)
[2018-05-19] MEDS: INSULIN -REGULAR HUMAN 50 UNIT/0.5 ML ML SQ SCH (21:10)
[2018-05-19 22:26] VITALS: O2SAT 96
[2018-05-20 05:17] LABS: Absolute Lymphocytes (CBC) 2.1 K/uL (0.7-4.9); Absolute Monocytes 0.5 K/uL (0.1-1.3); Absolute Neutrophil 3.2 K/uL (1.8-8.0); Basophils % 0.9 % (0-1.3); Eosinophils % 1.8 % (0-4.4); Hematocrit 42.4 % (39.6-49.0); Lymphocytes % 35.6 % (15.3-44.8); MCH 31.9 pg (27.0-35.0); MCV 93.2 fL (80-100); MPV 8.1 fL (7.6-11.3); Monocytes % 8.3 % (3.3-12.3); RBC Red Blood Cell Count 4.55 M/uL (4.33-5.43)
[2018-05-20 05:36] LABS: Albumin 3.3 g/dL (3.4-5.0); Bilirubin Total 0.5 mg/dL (0.2-1.0); Magnesium 1.9 mg/dL (1.8-2.4); Phosphorus 3.2 mg/dL (2.5-4.9); Potassium 3.9 mmol/L (3.5-5.1); Protein, Total 6.6 g/dL (6.4-8.2)
[2018-05-20] MEDS ORDERED: POTASSIUM CL SA 10 MEQ TAB PO ONE (06:30)
[2018-05-20] MEDS: INSULIN -REGULAR HUMAN 50 UNIT/0.5 ML ML SQ SCH ×2 (07:30→11:30)
[2018-05-20] MEDS ORDERED: VERAPAMIL SR 240 MG TABLET PO SCH (09:00)
[2018-05-20] MEDS ORDERED: ASPIRIN EC 81 MG TAB PO SCH (09:00)
--- NOTE | 2018-05-20 12:56 | P.SSS ---
Patient History Date of Service: 05/20/18 Primary Care Provider: Dr Patel - Cardiology Reason for admission: Chest Pain History of Present Illness: This is a 67-year-old male with significant past medical history of hypertension , type 2 diabetes and hypercholesterol who came to the ED complaining of having some chest pain. The chest pain was on the left side and was nonradiating. Pain was worse when he 1st got up in the morning. No other complaints to offer at this time. Denies having abdominal pain nausea vomiting shortness of breath or any other associated symptoms at this time. Allergies Penicillins Allergy (Intermediate, Verified 05/10/12 21:59) Itching Home Medications: Glipizide [Glucotrol] 5 mg PO DAILY 05/19/18 Metformin HCl [Glucophage*] 500 mg PO BIDWM 05/19/18 Simvastatin 20 mg PO DAILY 05/19/18 Sitagliptin Phosphate [Januvia*] 50 mg PO DAILY 05/19/18 Tamsulosin [Flomax*] 0.4 mg PO BEDTIME 05/19/18 Verapamil HCl [Verapamil ER] 240 mg PO DAILY 05/19/18 Nitroglycerin [Nitrostat*] 0.4 mg SL PRN PRN #25 tab 05/20/18 - Past Medical/Surgical History Has patient received pneumonia vaccine in the past: Yes Diabetic: Yes -: HTN -: DM -: HLP -: back surgery x2 -: left shoulder sx -: right knee sx -: penile sx - Family History Family History: Reviewed- Non-Contributory - Social History Smoking Status: Never smoker Alcohol use: Yes CD- Drugs: No Caffeine use: Yes Place of Residence: Home Review of Systems 10-point ROS is otherwise unremarkable Physical Examination - Vital Signs Temperature: 97.8 F Blood Pressure: 131/77 Pulse: 56 Respirations: 17 Pulse Ox (%): 95 - Physical Exam General: Alert, In no apparent distress HEENT: Atraumatic, PERRLA, Mucous membr. moist/pink, EOMI, Sclerae nonicteric Neck: Supple, 2+ carotid pulse no bruit, No LAD, Without JVD or thyroid abnormality Respiratory: Clear to auscultation bilaterally, Normal air movement Cardiovascular: Regular rate/rhythm, Normal S1 S2 Gastrointestinal: Normal bowel sounds, No tenderness Musculoskeletal: No tenderness Integumentary: No rashes Neurological: Normal gait, Normal speech, Normal strength at 5/5 x4 extr, Normal tone, Normal affect Lymphatics: No axilla or inguinal lymphadenopathy - Diagnosis (Problem(s)) (1) Chest pain Current Visit: Yes Status: Acute Qualifiers: Chest pain type: unspecified Qualified Code(s): R07.9 - Chest pain, unspecified (2) HTN (hypertension) Current Visit: Yes Status: Chronic Qualifiers: Hypertension type: essential hypertension Qualified Code(s): I10 - Essential (primary) hypertension (3) Diabetes Current Visit: Yes Status: Chronic Qualifiers: Diabetes mellitus type: type 2 Diabetes mellitus 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 Cardiology was consulted here in the hospital. Echocardiogram was done. Echocardiogram showed no acute abnormality. Patient then was discharged home once his chest pain had resolved under stable condition. Dr. Bell saw the patient here in the hospital as well. Asked to follow up with patient and outpatient basis in about 1-2 weeks post discharge. No new medications were no changes in all medications well. - Disposition Disposition: ROUTINE DISCHARGE Condition: GOOD Patient Discharge Instructions: Please f.u with PCP and Dr Bell in 1 to 2 week post discharge. No New medication Diet: Regular Activity: Ad jennifer
[2018-05-20 12:57] VITALS: BP 146/72; TEMP 97
--- NOTE | 2018-05-21 07:07 | CON ---
Date of Consultation: 05/19/2018 Reason For Consultation: Chest pain. History Of Present Illness: Mr. Hair is a 67-year-old male. I met him zaheer gerber 20 years ago. He has done well over the years. He has a history of diabetes, hypertension, dysl ipidemia. He came in with substernal chest pressure without any other symptoms. He has a very stron g family history of heart disease and the family was concerned and brought him in for evaluation. He told me that his chest pressure actually gets better as he walks around. It is not exertional. He denied PND, orthopnea, pedal edema, palpitations, or syncope. He just states that he has been more s hort of breath lately. Allergies: HE IS ALLERGIC TO PENICILLIN AND MOBIC. Review of Systems: Negative. Social History: Negative. Family History: Positive for heart disease. Medications: At home include glipizide, metformin, simvastatin, Januvia, Flomax, and verapamil. Physical Examination: General: Mr. Hair was in no acute distress. Vital Signs: Stable. He was afebrile. HEENT: Negative. Neck: Supple without any lymphadenopathy, JVD, thyromegaly, or bruit. Chest: Clear to auscultation and percussion. Cardiac: Revealed a regular rhythm and rate without any murmurs, gallops, or rubs. Abdomen: Benign. Extremities: Revealed no clubbing, cyanosis, or edema. Diagnostic Data: All normal except for a glucose of 270. Impression And Plan: A patient who is 67 has multiple cardiac risk factors including a very strong f amily history of heart disease, diabetes, hypertension, and dyslipidemia. His diabetes is poorly con trolled. His blood pressure is well controlled. He has ruled out for a myocardial infarction. His pain is atypical as it actually gets better when he walks. But he had been short of breath lately. He has ruled out for a myocardial infarction and I am comfortable with him going home. I will make a rrangements for him to have an outpatient echocardiogram and a stress test in the near future. FLOYD/MEAGAN Voice ID: [id number] Report ID: [id number]
--- NOTE | 2018-05-22 08:11 | ECHO ---
HEIGHT: 5 ft 11 in WEIGHT: 199 lb 9.6 oz DATE OF STUDY: 05/19/[address]: 2-DIMENSIONAL: YES M.MODE: YES DOPPLER: YES COLOR FLOW: YES TDS: NO PORTABLE: NO DEFINITY: NO BUBBLE STUDY: NO DIAGNOSIS: CHEST PAIN CARDIAC HISTORY: CATHERIZATION: YES SURGERY: NO PROSTHETIC VALVE: NO PACEMAKER: NO MEASUREMENTS (cm) DIASTOLIC (NORMALS) SYSTOLIC (NORMALS) IVSd 1.1 (0.6-1.2) LA Diam 3.7 (1.9-4.0) LVEF 59% LVIDd 3.4 (3.5-5.7) LVIDs 2.4 (2.0-3.5) %FS 30% LVPWd 1.2 (0.6-1.2) Ao Diam 3.4 (2.0-3.7) 2 DIMENSIONAL ASSESSMENT: RIGHT ATRIUM: NORMAL LEFT ATRIUM: NORMAL RIGHT VENTRICLE: NORMAL LEFT VENTRICLE: NORMAL TRICUSPID VALVE: NORMAL MITRAL VALVE: NORMAL PULMONIC VALVE: NORMAL AORTIC VALVE: NORMAL PERICARDIAL EFFUSION: NONE AORTIC ROOT: NORMAL LEFT VENTRICULAR WALL MOTION: NORMAL DOPPLER/COLOR FLOW: NORMAL COMMENTS: NORMAL 2D ECHOCARDIOGRAM WITH DOPPLER. NO WALL MOTION ABNORMALITY. NO EFFUSION. TECHNOLOGIST: AFTAB JAMES
== END 2018-05-20 13:40 | disposition home or self-care (01) ==
LOC: ER 08:27 → ERHOLD 10:19 → 2ND 13:36
PROVIDERS: ADMIT Family Medicine; ATTEND Family Medicine
DX: R07.89 Other chest pain (principal); I10 Essential (primary) hypertension; E11.9 Type 2 diabetes mellitus without complications; E78.00 Pure hypercholesterolemia, unspecified; Z88.0 Allergy status to penicillin; Z23 Encounter for immunization
CPT/HCPCS: 36415; 71045; 80048; 80053; 80061; 82962 ×4; 83735 ×2; 83880; 84100; 84443; 84484 ×4; 85025 ×2; 93005; 93306; 93971; 96360; 99285; G0008; G0378 ×2; Q2035; 81003; 81015

== ENCOUNTER 2018-07-12 05:37 | Observation (INO) | payer OTHER ==
--- OUTSIDE RECORDS SUMMARY | 2018-07-12 05:40 | XMS REPORT | Clinical Summary ---
:1950 Author Organization [facility] Address [address] [place] [address] Care Team Providers Name Role Phone Lucho Pathak Primary Care Provider Allergies Active Allergy Reactions Severity Noted Date Comments Meloxicam Rash Low 05/02/2018 Fenoprofen Rash Low 05/02/2018 Penicillins Swelling 05/02/2018 Medications Medication Sig Dispensed Refills Start Date End Date Status verapamil Take 120 mg by 0 Active (CALAN-SR) 120 MG mouth daily. ER tablet SITagliptin Take 100 mg by 0 Active (JANUVIA) 100 MG mouth daily. tablet glipiZIDE Take 5 mg by mouth 0 Active (GLUCOTROL) 5 MG daily. tablet simvastatin Take 20 mg by mouth 0 Active (ZOCOR) 20 MG nightly. tablet metFORMIN Take 500 mg by 0 Active (GLUCOPHAGE) 500 mouth 2 (two) times MG tablet daily with breakfast and dinner. tamsulosin Take 0.4 mg by 0 Active (FLOMAX) 0.4 mg mouth daily. Cap 24 hr capsule sulfamethoxazole-t Take 1 tablet (160 14 tablet 0 05/10/2018 05/17/2018 rimethoprim mg of trimethoprim (BACTRIM DS) total) by mouth 2 800-160 mg per (two) times daily tablet for 7 days. acetaminophen-code Take 1 tablet by 30 tablet 0 05/10/2018 05/20/2018 ine (TYLENOL #3) mouth every 4 300-30 mg per (four) hours as tablet needed for Pain for up to 10 days. 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 Encounters Date Type Specialty Care Team Description 05/10/2018 Surgery Luigi Rodney PLICATION,PENILE 05/10/2018 Anesthesia Event Louis Desir MD 05/10/2018 Hospital Encounter Luigi Rodney, Peyronie's disease; MD Caicedo penis plastica 05/03/2018 Orders Only Family Medicine Luigi Rodney, Peyronie's disease ( Primary Dx); MD Caicedo penis plastica 05/02/2018 Hospital Encounter Pre-Admission Luigi Rodney, Testing 05/02/2018 Orders Only General Internal Medicine after 07/11/2017 Social History Tobacco Use Types Packs/Day Years Used Date Never Smoker Smokeless Tobacco: Never Used Alcohol Use Drinks/Week oz/Week Comments Yes rarely Sex Assigned at Date Recorded Not on file Job Start Date Occupation Industry Not on file Not on file Not on file Travel History Travel Start Travel End No recent travel history available. Last Filed Vital Signs Vital Sign Reading [...] disease Case Notes 1 HR PER HEIDE POCT-GLUCOSE METER Routine 05/10/2018 10:34 AM Results for this CDT procedure are in the results section. CBC W/PLT COUNT & AUTO Routine 05/10/2018 10:17 AM Peyronie's Results for this DIFFERENTIAL CDT disease procedure are in Induration penis the results plastica section. CBC W/PLT COUNT & AUTO Routine 05/10/2018 10:17 AM Peyronie's Results for this DIFFERENTIAL CDT disease procedure are in Induration penis the results plastica section. GLUCOSE Routine 05/02/2018 11:21 AM Results for this CDT procedure are in the results section. BUN AND CREATININE Routine 05/02/2018 11:21 AM Results for this CDT procedure are in the results section. ELECTROLYTE PANEL Routine 05/02/2018 11:21 AM Results for this CDT procedure are in the results section. HEMOGLOBIN Routine 05/02/2018 11:21 AM Results for this CDT procedure are in the results section. ECG 12-LEAD Routine 05/02/2018 11:20 AM CDT Procedure Note - Interface, External Ris In - 05/02/2018 4:55 PM CDT Ventricular Rate 71 BPM Atrial Rate 71 BPM P-R Interval 160 ms QRS Duration 112 ms Q-T Interval 394 ms QTC Calculation(Bazett) 428 ms P [place] 63 degrees R [place] 25 degrees T [place] 28 degrees Sinus rhythm with Premature atrial complexes in a pattern of bigeminy Otherwise normal ECG No previous ECGs available ECG 12-LEAD Routine 05/02/2018 11:20 AM CDT after 07/11/2017 Results POC-Glucose meter (05/10/2018 10:34 AM CDT) POC-Glucose Meter 138 (H)Comment: TESTED AT 70 - 110 mg/dL [address] [address] Specimen Blood Performing Organization Address City/State/Zipcode Phone Number [address] [address] [phone] CENTER CBC with platelet count + automated diff (05/10/2018 10:17 AM CDT) WBC 6.1 3.5 - 10.5 K/L [facility] RBC 4.64 4.63 - 6.08 M/L [facility] Hemoglobin 14.7 13.7 - 17.5 GM/DL [facility] Hematocrit 43.7 40.1 - 51.0 % [facility] MCV 94.2 (H) 79.0 - 92.2 fL [facility] MCH 31.7 25.7 - 32.2 pg [facility] MCHC 33.6 32.3 - 36.5 GM/DL [facility] RDW 12.4 11.6 - 14.4 % [facility] Platelets 255 150 - 450 K/CU MM [facility] MPV 9.8 9.4 - 12.4 fL [facility] nRBC 0 0 - 0 /100 WBC [facility] % Neutros 56 % [facility] % Lymphs 33 % [facility] % Monos 8 % [facility] % Eos 1 % [facility] % Baso 1 % [facility] # Neutros 3.44 1.78 - 5.38 K/L [facility] # Lymphs 2.02 1.32 - 3.57 K/L [facility] # Monos 0.51 0.30 - 0.82 K/L [facility] # Eos 0.08 0.04 - 0.54 K/L [facility] # Baso 0.03 0.01 - 0.08 K/L [facility] Immature Granulocytes-Relative 0 0 - 1 % [facility] Specimen Blood Performing Organization Address City/State/Zipcode Phone Number [facility] [address] [place] [address] [phone] CENTER BUN and Creatinine (05/02/2018 11:21 AM CDT) BUN 19 7 - 21 mg/dL [facility] Creatinine 1.13Comment: Specimen 0.57 - 1.25 mg/dL [facility] slightly hemolyzed [facility] EGFR 65Comment: ESTIMATED GFR IS mL/min/1.73 sq m [facility] NOT ACCURATE CREATININE [facility] CLEARANCE IN PREDICTING GLOMERULAR FILTRATION RATE. ESTIMATED GFR IS NOT APPLICABLE FOR DIALYSIS PATIENTS. Specimen Blood Performing Organization Address City/[facility] Phone Number [address] [address] [place] Hemoglobin (05/02/2018 11:21 AM CDT) Hemoglobin 15.4 13.7 - 17.5 GM/DL [facility] Specimen Blood Performing Organization Address [facility] Phone Number [address] [address] [phone] [place] Glucose (05/02/2018 11:21 AM CDT) Glucose 258 (H) 70 - 105 mg/dL [facility] Specimen Blood Performing Organization Address [facility] Phone Number [address] [address] [place] Electrolytes (05/02/2018 11:21 AM CDT) Sodium 136 136 - 145 meq/L [facility] Potassium 3.9Comment: Specimen slightly 3.5 - 5.1 meq/L [facility] hemolyzed [facility] Chloride 104 98 - 107 meq/L [facility] CO2 22 22 - 29 meq/L [facility] Specimen Blood Performing Organization Address [facility] Phone Number [address] [address] [phone] CENTER ECG 12 lead (05/02/2018 11:20 AM CDT) Narrative Performed At Ventricular Rate 71 BPM GE MUSE Atrial Rate 71 BPM P-R Interval 160 ms QRS Duration 112 ms Q-T Interval 394 ms QTC Calculation(Bazett) 428 ms P [place] 63 degrees R [place] 25 degrees T [place] 28 degrees Sinus rhythm with Premature atrial complexes in a pattern of bigeminy Otherwise normal ECG No previous ECGs available Confirmed by MD MCBRIDE YOCHAI ([id number]) on 05/03/2018 5:56:24 AM Procedure Note Interface, External Ris In - 05/03/2018 5:56 AM CDT Ventricular Rate 71 BPM Atrial Rate 71 BPM P-R Interval 160 ms QRS Duration 112 ms Q-T Interval 394 ms QTC Calculation(Bazett) 428 ms P [place] 63 degrees R [place] 25 degrees T [place] 28 degrees Sinus rhythm with Premature atrial complexes in a pattern of bigeminy Otherwise normal ECG No previous ECGs available Confirmed by MD RAE, KATE ([id number]) on 05/03/2018 5:56:24 AM Performing Organization Address City/State/Zipcode Phone Number GE MUSE after 07/11/2017 Insurance Payer Benefit Plan / Group Subscriber ID Type Phone Address MEDICARE MEDICARE A B xxxxxxxxxxx Medicare AETNA - MGD CARE AETNA INDEMNITY NON CONTR xxxxxx Comm Advance Directives Patient has advance care planning documents, and code status on file. For more information, please contact:[address] [phone] Code Status Date Activated Date Inactivated Comments Full Code 05/10/2018 9:48 AM 05/10/2018 4:33 PM This code status was determined by: Patient
--- OUTSIDE RECORDS SUMMARY | 2018-07-12 05:40 | XMS REPORT ---
:1950 [facility] Address [address] [place] [address] Care Team Providers Name Role Phone CHARLI [...] Comments WHITE BLOOD CELL COUNT (BEAKER) (test pwlh=800) 6.1 K/ L 3.5-10.5 RED BLOOD CELL COUNT (BEAKER) (test uxxa=822) 4.64 M/ L 4.63-6.08 HEMOGLOBIN (BEAKER) (test umym=989) 14.7 GM/DL 13.7-17.5 HEMATOCRIT (BEAKER) (test upxp=275) 43.7 % 40.1-51.0 MEAN CORPUSCULAR VOLUME (BEAKER) (test cfkl=567) 94.2 fL 79.0-92.2 MEAN CORPUSCULAR HEMOGLOBIN (BEAKER) (test enjc=754) 31.7 pg 25.7-32.2 MEAN CORPUSCULAR HEMOGLOBIN CONC (BEAKER) (test gpzi=013) 33.6 GM/DL 32.3- 36.5 RED CELL DISTRIBUTION WIDTH (BEAKER) (test butc=619) 12.4 % 11.6-14.4 PLATELET COUNT (BEAKER) (test krry=278) 255 K/CU MM 150-450 MEAN PLATELET VOLUME (BEAKER) (test ygmo=823) 9.8 fL 9.4-12.4 NUCLEATED RED BLOOD CELLS (BEAKER) (test xnwv=351) 0 /100 WBC 0-0 NEUTROPHILS RELATIVE PERCENT (BEAKER) (test pobr=123) 56 % LYMPHOCYTES RELATIVE PERCENT (BEAKER) (test gaev=752) 33 % MONOCYTES RELATIVE PERCENT (BEAKER) (test qbxa=004) 8 % EOSINOPHILS RELATIVE PERCENT (BEAKER) (test osdv=539) 1 % BASOPHILS RELATIVE PERCENT (BEAKER) (test nfvo=742) 1 % NEUTROPHILS ABSOLUTE COUNT (BEAKER) (test uxgy=760) 3.44 K/ L 1.78-5.38 LYMPHOCYTES ABSOLUTE COUNT (BEAKER) (test tzme=567) 2.02 K/ L 1.32-3.57 MONOCYTES ABSOLUTE COUNT (BEAKER) (test jpup=178) 0.51 K/ L 0.30-0.82 EOSINOPHILS ABSOLUTE COUNT (BEAKER) (test jbyf=013) 0.08 K/ L 0.04-0.54 BASOPHILS ABSOLUTE COUNT (BEAKER) (test tlki=819) 0.03 K/ L 0.01-0.08 IMMATURE GRANULOCYTES-RELATIVE PERCENT (BEAKER) (test 0 % 0-1 jdeo=9702) POCT-GLUCOSE [id number] 10:40:00 Test Item Value Reference Range Comments POC-GLUCOSE METER (BEAKER) 138 mg/dL 70-110 TESTED AT [facility] [address] [facility] (test bqpi=7419) [facility] [address] [id number] 13:26:00 Test Item Value Reference Range Comments SODIUM (BEAKER) (test uuyr=653) 136 meq/L 136-145 POTASSIUM (BEAKER) (test 3.9 meq/L 3.5-5.1 Specimen slightly hemolyzed edll=084) CHLORIDE (BEAKER) (test 104 meq/L 98-107 kpyl=674) CO2 (BEAKER) (test bxjz=722) 22 meq/L 22-29 [id number] 13:26:00 Test Item Value Reference Range Comments GLUCOSE RANDOM (BEAKER) (test gpaw=541) 258 mg/dL 70-105 BUN AND [id number] 13:26:00 Test Item Value Reference Range Comments BLOOD UREA NITROGEN 19 mg/dL 7-21 (BEAKER) (test weot=087) CREATININE (BEAKER) (test 1.13 mg/dL 0.57-1.25 Specimen slightly hksv=638) hemolyzed EGFR (BEAKER) (test 65 mL/min/1.73 sq m ESTIMATED GFR IS NOT glyn=6475) ACCURATE CREATININE CLEARANCE IN PREDICTING GLOMERULAR FILTRATION RATE. ESTIMATED GFR IS NOT APPLICABLE FOR DIALYSIS PATIENTS. [id number] 11:35:00 Test Item Value Reference Range Comments HEMOGLOBIN (KALEE) (test kntv=743) 15.4 GM/DL 13.7-17.5
--- OUTSIDE RECORDS SUMMARY | 2018-07-12 05:40 | XMS REPORT ---
[...] Status Dosage System Date Date Simvastatin ND 26687350691 20 MG Orally Active 1 tablet Once a day in the evening ND 81865435709 100 MG Orally Active 1 tablet Once a day Verapamil HCl ND 81504873195 120 MG Orally Active 1 tablet Three times a day Tamsulosin HCl ND 14998651318 0.4 MG Orally February 02Aug 01, Active 1 capsule Once a day 2017 2018 Results Name Result Date Reference Range Unit Abnormality Flag URINALYSIS AUTO W/O SCOPE (73964) ----AL neg [id number] ----NIT neg [id number] ----PROTEIN neg [id number] ----pH 5.5 20180202 ----BLO neg [id number] ----GLUCOSE 2+ [id number] ----BILIRUBIN neg [id number] ----KETONES neg [id number] ----SPECIFIC GRAVITY 1.015 20180202 PVR ----PVR 0 [id number] Summary Purpose eClinicalWorks Submission
[2018-07-12] MEDS ORDERED: LIDOCAINE 1% MPF 30 ML VIAL ONE (06:27)
[2018-07-12] MEDS ORDERED: DERMABOND SKIN ADHESIVE TOP ONE (06:42)
[2018-07-12 06:43] LABS: Absolute Lymphocytes (CBC) 2.1 K/uL (0.7-4.9); Absolute Monocytes 0.5 K/uL (0.1-1.3); Absolute Neutrophil 3.9 K/uL (1.8-8.0); Basophils % 0.9 % (0-1.3); Eosinophils % 1.1 % (0-4.4); Hematocrit 45.5 % (39.6-49.0); Lymphocytes % 31.9 % (15.3-44.8); MPV 8.2 fL (7.6-11.3); Monocytes % 7.3 % (3.3-12.3); RBC Red Blood Cell Count 4.84 M/uL (4.33-5.43)
[2018-07-12 06:45] LABS: Protime INR 1.02
[2018-07-12 06:59] LABS: BUN Blood Urea Nitrogen 16 mg/dL (7-18); Bicarbonate 27 mmol/L (21-32); Glucose Level 236 mg/dL (74-106); Potassium 4.1 mmol/L (3.5-5.1); Sodium Level 140 mmol/L (136-145); Troponin (Emerg Dept Use Only) < 0.02 ng/mL (0.0-0.045)
--- NOTE | 2018-07-12 08:14 | EDPHYS ---
Physician Documentation [facility] Name: Tim Hair Age: 67 yrs Sex: Male : 1950 Arrival Date: 07/12/2018 Time: 05:40 Bed 16 Private MD: ED Physician Isak Linares HPI: 07/12 05:53 This 67 yrs old Male presents to ER via Unassigned with complaints of Fall rn Injury. 05:53 The patient has experienced syncope. Onset: The symptoms/episode began/occurred just rn prior to arrival. Associated injury: Head/face:. Associated signs and symptoms: Pertinent positives: confusion, diaphoresis, dizziness, headache. Current symptoms: confusion, headache. The patient has not experienced similar symptoms in the past. REports got up out of bed then woke up on floor, family reports hit head on edge of nightstand, + cut face, family reports "lots of blood", unable to stand on own or walk on own, family reports unbalanced, was normal when went to bed. NO recent vomiting/diarrhea/chest pain/sob/fever/cough. . Historical: - Allergies: 05:45 Mobic; jb4 05:45 PENICILLINS; jb4 05:45 Nalfon; jb4 05:45 Ibuprofen; jb4 - Home Meds: 05:45 glipizide 5 mg Oral tab 1 tab once daily [Active]; Verapamil Oral [Active]; tamsulosin jb4 0.4 mg Oral cp24 1 cap once daily [Active]; simvastatin 20 mg Oral tab 1 tab once daily [Active]; Metformin Oral [Active]; Januvia Oral [Active]; - PMHx: 05:45 Diabetes - NIDDM; High Cholesterol; Hypertension; jb4 - PSHx: 05:45 penile plication; jb4 - Immunization history:: Adult Immunizations up to date, Flu vaccine is up to date. - Social history:: Smoking status: Patient/guardian denies using tobacco, Patient uses alcohol, but reports only rare drinking. - Immunization history: Last tetanus immunization: - up to date. - Family history:: not pertinent. - Ebola Screening: : No symptoms or risks identified at this time. - Hospitalizations: : No recent hospitalization is reported. ROS: 05:53 Constitutional: Negative for fever, chills, and weight loss, Eyes: + right periorbital commercial litigation attorney and lacerations Neck: Negative for injury, pain, and swelling, Cardiovascular: Negative for chest pain, palpitations, and edema, Respiratory: Negative for shortness of breath, cough, wheezing, and pleuritic chest pain, Abdomen/GI: Negative for abdominal pain, nausea, vomiting, diarrhea, and constipation, MS/Extremity: + right elbow pain Skin: +lacerations Neuro: Negative for weakness, numbness, tingling, and seizure. Exam: 05:53 Constitutional: This is a well developed, well nourished patient who is awake, no rn social work distress Head/Face: Normocephalic, + right periorbital ecchymosis with multiple irregular lacerations, avulsion with missing tissue right infraorbital region , 2cm irregular superficial laceration that extends to lateral margin of eye but does not involve lateral canthus/eyelids, 4cm right supraorbital laceration without active bleeding. Eyes: Pupils equal round and reactive to light, extra-ocular motions intact. Lids and lashes normal. Conjunctiva and sclera are non-icteric and not injected. Cornea within normal limits. ENT: no oral trauma, no nasal trauma Neck: Trachea midline, no vertebral point tenderness. Chest/axilla: Normal chest wall appearance and motion. Nontender with no deformity. No lesions are appreciated. Cardiovascular: Regular rate and rhythm with a normal S1 and S2. No gallops, murmurs, or rubs. Normal PMI, no JVD. No pulse deficits. Respiratory: Lungs have equal breath sounds bilaterally, clear to auscultation. No rales, rhonchi or wheezes noted. No increased work of breathing, no retractions or nasal flaring. Abdomen/GI: Soft, non-tender, No distension . No guarding or rebound. No evidence of tenderness throughout. Back: No spinal tenderness. MS/ Extremity: Pulses equal, no cyanosis. Neurovascular intact. Full, normal range of motion. Equal circumference. Neuro: Awake and alert, GCS 15, oriented to person, place, time, and situation. Cranial nerves II-XII grossly intact. Motor strength 5/5 in all extremities. Sensory grossly intact. Cerebellar exam normal. Vital Signs: 05:45 BP 167 / 75; Pulse 74; Resp 16; Temp 97.9(O); Pulse Ox 97% on R/A; Weight 90.72 kg (R); jb4 Height 5 ft. 11 in. (180.34 cm) (R); 06:45 BP 138 / 84; Pulse 69; Resp 14; Pulse Ox 98% on R/A; jb4 08:06 BP 151 / 86 Supine; Pulse 68; Resp 15; Pulse Ox 100% on R/A; dh3 08:08 BP 149 / 91 Sitting; Pulse 72; Resp 17; Pulse Ox 100% on R/A; dh3 08:10 BP 136 / 90 Standing; Pulse 75; Resp 18; Pulse Ox 99% on R/A; dh3 10:00 BP 127 / 85; Pulse 64; Resp 13; Pulse Ox 98% ; bp 11:00 BP 125 / 75; Pulse 62; Resp 12; Pulse Ox 97% ; bp 12:00 BP 115 / 82; Pulse 62; Resp 14; Pulse Ox 98% ; bp 12:57 BP 122 / 82; Pulse 58; Resp 12; Pulse Ox 99% ; bp 05:45 Body Mass Index 27.89 (90.72 kg, 180.34 cm) jb4 Montgomery Coma Score: 05:50 Eye Response: spontaneous(4). Verbal Response: oriented(5). Motor Response: obeys ak1 commands(6). Total: 15. 06:45 Eye Response: spontaneous(4). Verbal Response: oriented(5). Motor Response: obeys jb4 commands(6). Total: 15. Trauma Score (Adult): 05:50 Eye Response: spontaneous(1); Verbal Response: oriented(1); Motor Response: obeys ak1 commands(2); Systolic BP: > 89 mm Hg(4); Respiratory Rate: 10 to 29 per min(4); Montgomery Score: 15; Trauma Score: 12 06:45 Eye Response: spontaneous(1); Verbal Response: oriented(1); Motor Response: obeys jb4 commands(2); Systolic BP: > 89 mm Hg(4); Respiratory Rate: 10 to 29 per min(4); Montgomery Score: 15; Trauma Score: 12 Laceration: 06:55 Wound Repair of 2cm ( 0.8in ) subcutaneous laceration to right lateral eye margin. rn Distal neuro/vascular/tendon intact. Anesthesia: Regional Block with 4 mls of 1% lidocaine. Wound prep: Extensive cleansing by nuclear fuel processing technician by nurse. Skin closed with 5 5-0 fast absorbing gut using interrupted sutures and sterile technique. Patient tolerated well. 06:55 Wound Repair of 5cm ( 2.0in ) subcutaneous laceration to right supraorbital region. rn Anesthesia: Regional Block with 4 mls of 1% lidocaine. Wound prep: Extensive cleansing by nuclear fuel processing technician. Skin closed with 6 5-0 fast absorbing gut using interrupted sutures and sterile technique. Dressed with steri-strips. Patient tolerated well. MDM: 05:51 Patient medically screened. rn 08:10 Data reviewed: vital signs, nurses notes. Data interpreted: Pulse oximetry: on room air kb is 98 %. Interpretation: normal. Counseling: I had a detailed discussion with the patient and/or guardian regarding: the historical points, exam findings, and any diagnostic results supporting the discharge/admit diagnosis, lab results, radiology results, the need for further work-up and treatment in the hospital. Physician consultation: Sukhwinder Jeong MD was contacted at 08:12, regarding admission, to the telemetry unit. patient's condition, and will see patient in ED, shortly. 07/12 05:52 Order name: Basic Metabolic Panel; Complete Time: 07:00 rn 07/12 05:52 Order name: CBC with Diff; Complete Time: 06:57 rn 07/12 05:52 Order name: CT Head C Spine; Complete Time: 09:06 rn 07/12 05:52 Order name: Protime (+inr); Complete Time: 06:57 rn 07/12 05:52 Order name: Ptt, Activated; Complete Time: 06:57 rn 07/12 05:52 Order name: Troponin (emerg Dept Use Only); Complete Time: 07:00 rn 07/12 05:52 Order name: EKG; Complete Time: 05:54 rn 07/12 05:52 Order name: Cardiac monitoring; Complete Time: 06:14 rn 07/12 05:52 Order name: EKG - Nurse/Tech; Complete Time: 06:35 rn 07/12 05:52 Order name: IV Saline Lock; Complete Time: 06:35 rn 07/12 05:52 Order name: CT Facial Bones W/O Con; Complete Time: 09:06 rn 07/12 07:50 Order name: Elbow Right 3 View XRAY; Complete Time: 11:13 kb 07/12 05:52 Order name: Labs collected and sent; Complete Time: 06:35 rn 07/12 05:52 Order name: NPO; Complete Time: 06:14 rn 07/12 05:52 Order name: O2 Per Protocol; Complete Time: 06:14 rn 07/12 05:52 Order name: O2 Sat Monitoring; Complete Time: 06:14 rn 07/12 05:52 Order name: Glucose Level; Complete Time: 06:14 rn 07/12 07:26 Order name: Orthostatics; Complete Time: 08:17 kb Administered Medications: 06:15 Drug: Lidocaine (1 %) 1 application {Note: administered by ER physician..} Volume: 20 jb4 ml; Route: Infiltration; 08:26 Drug: [place] (7.5 mg-325 mg) 1 tabs Route: PO; ph 10:06 Follow up: Response: No adverse reaction; Pain is decreased ph Disposition: 07/12/18 08:13 Hospitalization ordered by Sukhwinder Jeong for Observation. Preliminary diagnosis are Syncope and collapse, Laceration without foreign body of scalp - Face, Superficial injury of head, Contusion of right elbow. - Bed requested for Telemetry/MedSurg (observation). - Status is Observation. bp - Condition is Stable. - Problem is new. - Symptoms have improved. UTI on Admission? No Addendum: 07/14/2018 07:02 Co-signature as Attending Physician, Isak Linares MD. r n Signatures: Dispatcher [employer] EDUT Ellyn Pennington, SLITTER AND CUTTER OPERATOR-C SLITTER AND CUTTER OPERATOR-Ckb Isak Linares MD MD rn Smirch, Shelby, RN RN Ashleigh Rodriguez RN RN Rivera Vogt RN RN jb4 Konrad Sykes RN RN bp Corrections: (The following items were deleted from the chart) 07/12 06:57 05:53 Constitutional: This is a well developed, well nourished patient who is awake, no rn social work distress Head/Face: Normocephalic, + right periorbital ecchymosis with multiple irregular lacerations, 4cm superficial and irregular to right infraorbital region, 2cm irregular superficial laceration that extends to lateral margin of eye but does not involve lateral canthus/eyelids, 4cm right supraorbital laceration without active bleeding. Eyes: Pupils equal round and reactive to light, extra-ocular motions intact. Lids and lashes normal. Conjunctiva and sclera are non-icteric and not injected. Cornea within normal limits. ENT: no oral trauma, no nasal trauma Neck: Trachea midline, no vertebral point tenderness. Chest/axilla: Normal chest wall appearance and motion. Nontender with no deformity. No lesions are appreciated. Cardiovascular: Regular rate and rhythm with a normal S1 and S2. No gallops, murmurs, or rubs. Normal PMI, no JVD. No pulse deficits. Respiratory: Lungs have equal breath sounds bilaterally, clear to auscultation. No rales, rhonchi or wheezes noted. No increased work of breathing, no retractions or nasal flaring. Abdomen/GI: Soft, non-tender, No distension . No guarding or rebound. No evidence of tenderness throughout. Back: No spinal tenderness. MS/ Extremity: Pulses equal, no cyanosis. Neurovascular intact. Full, normal range of motion. Equal circumference. Neuro: Awake and alert, GCS 15, oriented to person, place, time, and situation. Cranial nerves II-XII grossly intact. Motor strength 5/5 in all extremities. Sensory grossly intact. Cerebellar exam normal. rn 10:06 08:13 Hospitalization Ordered by Sukhwinder Jeong MD for Inpatient Admission. Preliminary kb diagnosis is Syncope and collapse; Laceration without foreign body of scalp - Face; Superficial injury of head; Contusion of right elbow. Bed requested for Telemetry/MedSurg (Inpatient). Status is Inpatient Admission. Condition is Stable. Problem is new. Symptoms have improved. UTI on Admission? No. kb 12:54 10:06 07/12/2018 08:13 Hospitalization Ordered by Sukhwinder Jeong MD for Observation. ss Preliminary diagnosis is Syncope and collapse; Laceration without foreign body of scalp - Face; Superficial injury of head; Contusion of right elbow. Bed requested for Telemetry/MedSurg (observation). Status is Observation. Condition is Stable. Problem is new. Symptoms have improved. UTI on Admission? No. kb 13:22 12:54 07/12/2018 08:13 Hospitalization Ordered by Sukhwinder Jeong MD for Observation. bp Preliminary diagnosis is Syncope and collapse; Laceration without foreign body of scalp - Face; Superficial injury of head; Contusion of right elbow. Bed requested for Telemetry/MedSurg (observation). Status is Observation. Condition is Stable. Problem is new. Symptoms have improved. UTI on Admission? No. ss
--- NOTE | 2018-07-12 08:14 | ER ---
Nurse's Notes [facility] Name: Tim Hair Age: 67 yrs Sex: Male : 1950 Arrival Date: 07/12/2018 Time: 05:40 Bed 16 Private MD: Diagnosis: Syncope and collapse;Laceration without foreign body of scalp-Face;Superficial injury of head;Contusion of right elbow Presentation: 07/12 05:45 Presenting complaint: states: He stood up to go to the restroom and fell and hit jb4 his head on the bed side table. He was unable to walk right we had to help him to the car. Transition of care: patient was not received from another setting of care. Onset of symptoms was July 12, 2018. 05:45 Method Of Arrival: Wheelchair jb4 05:45 Acuity: RAIMUNDO 2 jb4 05:45 Risk Assessment: Do you want to hurt yourself or someone else? Patient reports no jb4 desire to harm self or others. Initial Sepsis Screen: Does the patient meet any 2 criteria? No. Patient's initial sepsis screen is negative. Does the patient have a suspected source of infection? No. Patient's initial sepsis screen is negative. Care prior to arrival: None. 06:01 Mechanism of Injury: Fall from standing position. Trauma event details: Injury occurred ak1 in the [facility], Injury occurred: at home. Injury occurred: July 12, 2018. Triage Assessment: 05:56 General: Appears uncomfortable, Behavior is cooperative, anxious. Pain: Complains of ak1 pain in right eye. EENT: Eyes laceration to right eye lid and below right eye. Neuro: Level of Consciousness is awake, alert, obeys commands, Oriented to person, place, time, situation, Ironing Pleater are equal bilaterally Moves all extremities. Speech is normal. Cardiovascular: No deficits noted. Respiratory: No deficits noted. GI: No signs and/or symptoms were reported involving the gastrointestinal system. : No signs and/or symptoms were reported regarding the genitourinary system. Derm: Skin is diaphoretic, Skin temperature is cool. Musculoskeletal: No signs and/or symptoms reported regarding the musculoskeletal system. Trauma Activation: Alert Physician: ED Physician; Name: Vijay; Notified At: 05:41; Arrived At: 05:41 Physician: General Surgeon; Name: ; Notified At: 05:41; Arrived At: Physician: Radiology; Name: Angeli Mccollum; Notified At: 05:41; Arrived At: 05:43 Physician: Respiratory; Name: ; Notified At: 05:41; Arrived At: Physician: Lab; Name: ; Notified At: 05:41; Arrived At: Historical: - Allergies: 05:45 Mobic; jb4 05:45 PENICILLINS; jb4 05:45 Nalfon; jb4 05:45 Ibuprofen; jb4 - Home Meds: 05:45 glipizide 5 mg Oral tab 1 tab once daily [Active]; Verapamil Oral [Active]; tamsulosin jb4 0.4 mg Oral cp24 1 cap once daily [Active]; simvastatin 20 mg Oral tab 1 tab once daily [Active]; Metformin Oral [Active]; Januvia Oral [Active]; - PMHx: 05:45 Diabetes - NIDDM; High Cholesterol; Hypertension; jb4 - PSHx: 05:45 penile plication; jb4 - Immunization history:: Adult Immunizations up to date, Flu vaccine is up to date. - Social history:: Smoking status: Patient/guardian denies using tobacco, Patient uses alcohol, but reports only rare drinking. - Immunization history: Last tetanus immunization: - up to date. - Family history:: not pertinent. - Ebola Screening: : No symptoms or risks identified at this time. - Hospitalizations: : No recent hospitalization is reported. Screenin:50 Abuse screen: Denies threats or abuse. Denies injuries from another. Tuberculosis ak1 screening: No symptoms or risk factors identified. 06:00 Nutritional screening: No deficits noted. Fall Risk Fall in past 12 months (25 points). jb4 IV access (20 points). Total Humphrey Fall Scale indicates High Risk Score (45 or more points). Fall prevention measures have been instituted. Side Rails Up X 2 Placed Close to Nursing Station Frequent Obs/Assessments Occuring Family Present and informed to notify staff if the need to leave the bedside. Primary Survey: 05:50 NO uncontrolled hemorrhage observed. A: The patient is alert. Airway: patent. ak1 Breathing/Chest: Respiratory pattern: regular. Circulation: Skin temperature: diaphoretic, cool. Disability Alert. Exposure/Environment: There is no evidence of uncontrolled external bleeding. Obvious injury(ies) are noted at this time: laceration right eye lid, laceration below right eye. 06:45 Reassessment Breathing/Chest Respiratory pattern Regular Respiratory effort Spontaneous jb4 Unlabored Chest inspection Symmetrical. Secondary Survey: 05:50 HEENT: Head No injury/deformity Face No injury/deformity Eyes: Other laceration to ak1 right eye lid, below right eye. Gastrointestinal: No deficits noted. : No signs and/or symptoms were reported regarding the genitourinary system. Musculoskeletal: No signs and/or symptoms reported regarding the musculoskeletal system. Assessment: 05:50 General: Appears uncomfortable, Behavior is cooperative, anxious. Pain: Complains of ak1 pain in right eye. Neuro: Level of Consciousness is awake, alert, obeys commands, Oriented to person, place, time, situation, Ironing Pleater are equal bilaterally Moves all extremities. Speech is normal, pt with swelling to right eye.. EENT: No signs and/or symptoms were reported regarding the EENT system. Cardiovascular: diaphoretic . Respiratory: No deficits noted. GI: No signs and/or symptoms were reported involving the gastrointestinal system. : No signs and/or symptoms were reported regarding the genitourinary system. Derm: Skin temperature is cool laceration above right eye, below right eye. Musculoskeletal: No signs and/or symptoms reported regarding the musculoskeletal system. Injury Description: Laceration sustained to right eye was sustained less than 30 minutes ago. a small amount of bleeding noted at this time. 05:56 Reassessment: Patient appears in no apparent distress at this time. No changes from ak1 previously documented assessment. pt in CT. 06:00 General: Appears in no apparent distress. uncomfortable, Behavior is cooperative, jb4 anxious. Pain: Complains of pain in right side of forehead, right eye and right zygomatic area. Neuro: Level of Consciousness is awake, alert, obeys commands, Oriented to person, place, time, situation, Ironing Pleater are equal bilaterally Moves all extremities. Speech is normal, Facial symmetry appears normal, Pupils are PERRLA. Cardiovascular: Diaphoretic.. Rhythm is sinus rhythm. Respiratory: Airway is patent Respiratory effort is even, unlabored, Respiratory pattern is regular, symmetrical. GI: No signs and/or symptoms were reported involving the gastrointestinal system. : No signs and/or symptoms were reported regarding the genitourinary system. EENT: No signs and/or symptoms were reported regarding the EENT system. Derm: Skin temperature is cool Lacerations above and below the right eye. Musculoskeletal: Circulation, motion, and sensation intact. 07:00 Reassessment: Patient appears in no apparent distress at this time. Patient and/or ph family updated on plan of care and expected duration. Pain level reassessed. 10:00 Reassessment: RECD REPORT FROM SRUTHI TOUSSAINT. 67YO HM P/W R BROW AND PARIETAL LACERATIONS S/P bp FALL WITH LOC AT HOME. REPAIR COMPLETED, ADMIT IN PROCESS. PT GCS 15, NO ACTIVE BLEEDING NOTED AT THIS TIME. 11:00 Reassessment: ADMIT ORDERS PENDING, VS STABLE ON MONITOR. bp 12:00 Reassessment: ADMIT COMPLETE, ROOM ASSIGNMENT PENDING, VS REMAIN STABLE, GCS 15. bp Vital Signs: 05:45 BP 167 / 75; Pulse 74; Resp 16; Temp 97.9(O); Pulse Ox 97% on R/A; Weight 90.72 kg (R); jb4 Height 5 ft. 11 in. (180.34 cm) (R); 06:45 BP 138 / 84; Pulse 69; Resp 14; Pulse Ox 98% on R/A; jb4 08:06 BP 151 / 86 Supine; Pulse 68; Resp 15; Pulse Ox 100% on R/A; dh3 08:08 BP 149 / 91 Sitting; Pulse 72; Resp 17; Pulse Ox 100% on R/A; dh3 08:10 BP 136 / 90 Standing; Pulse 75; Resp 18; Pulse Ox 99% on R/A; dh3 10:00 BP 127 / 85; Pulse 64; Resp 13; Pulse Ox 98% ; bp 11:00 BP 125 / 75; Pulse 62; Resp 12; Pulse Ox 97% ; bp 12:00 BP 115 / 82; Pulse 62; Resp 14; Pulse Ox 98% ; bp 12:57 BP 122 / 82; Pulse 58; Resp 12; Pulse Ox 99% ; bp 05:45 Body Mass Index 27.89 (90.72 kg, 180.34 cm) jb4 Wander Coma Score: 05:50 Eye Response: spontaneous(4). Verbal Response: oriented(5). Motor Response: obeys ak1 commands(6). Total: 15. 06:45 Eye Response: spontaneous(4). Verbal Response: oriented(5). Motor Response: obeys jb4 commands(6). Total: 15. Trauma Score (Adult): 05:50 Eye Response: spontaneous(1); Verbal Response: oriented(1); Motor Response: obeys ak1 commands(2); Systolic BP: > 89 mm Hg(4); Respiratory Rate: 10 to 29 per min(4); Wander Score: 15; Trauma Score: 12 06:45 Eye Response: spontaneous(1); Verbal Response: oriented(1); Motor Response: obeys jb4 commands(2); Systolic BP: > 89 mm Hg(4); Respiratory Rate: 10 to 29 per min(4); Prosperity Score: 15; Trauma Score: 12 ED Course: 05:40 Patient arrived in ED. jb4 05:45 Arm band placed on left wrist. jb4 05:50 Patient has correct armband on for positive identification. Bed in low position. Side ak1 rails up X 1. 05:50 monitoring manager on. Pulse ox on. NIBP on. jb4 05:50 Patient maintains SpO2 saturation greater than 95% on room air. ak1 05:51 Isak Linares MD is Attending Physician. rn 05:54 Triage completed. jb4 06:01 Thermoregulation: warm blanket given to patient. ak1 06:14 Rivera Vogt, RN is Primary Nurse. jb4 06:19 CT Head C Spine In Process Unspecified. EDMS 06:19 CT Facial Bones W/O Con In Process Unspecified. EDMS 06:25 Initial lab(s) drawn, by ne, sent to lab. Inserted saline lock: 20 gauge in left jb4 antecubital area, using aseptic technique. Blood collected. 06:44 Assist provider with laceration repair on right side of forehead, right eye and right jb4 zygomatic area that was between 7.6 to 12.5 cm using sutures. Set up tray. Performed by Isak Linares MD. 07:00 Ellyn Pennington FNP-C is PHCP. kb 08:12 Sukhwinder Jeong MD is Hospitalizing Provider. kb 09:17 Elbow Right 3 View XRAY In Process Unspecified. EDMS 11:04 Primary Nurse role handed off by Rivera Vgot, RN bp 11:04 Konrad Sykes, RN is Primary Nurse. bp 12:57 Patient admitted, IV remains in place. bp Administered Medications: 06:15 Drug: Lidocaine (1 %) 1 application {Note: administered by ER physician..} Volume: 20 jb4 ml; Route: Infiltration; 08:26 Drug: [place] (7.5 mg-325 mg) 1 tabs Route: PO; ph 10:06 Follow up: Response: No adverse reaction; Pain is decreased ph Intake: 05:50 PO: 0ml; Total: 0ml. ak1 Output: 05:50 Urine: 0ml; Total: 0ml. ak1 Outcome: 08:13 Decision to Hospitalize by Provider. kb 12:57 Condition: stable bp 12:57 Instructed on the need for admit. 12:58 Patient's length of stay in the Emergency Department was greater than 2 hours. DUE TO bp LACK OF ADMIT BEDSPatient's length of stay extended due to 13:22 Patient left the ED. bp Signatures: Dispatcher [employer] EDMS Ellyn Pennington, MAJOR APPLIANCE ASSEMBLY SUPERVISOR-C MAJOR APPLIANCE ASSEMBLY SUPERVISOR-CkMaria Elena Bacon, RN RN Isak Maradiaga MD MD rn Krenek, Amber, RN RN ak1 Ashleigh Rodriguez RN RN Rivera Vogt, NORBERT RN jbSarah Beth Ortiz formerly [facility] Konrad Sykes, RN RN bp
[2018-07-12] MEDS ORDERED: HYDROCODONE/APAP 7.5/325 MG TAB ONE (08:31)
--- NOTE | 2018-07-12 09:02 | RAD REPORT ---
EXAM DESCRIPTION: CT - CTHCSPWOC - 07/12/2018 6:19 am CLINICAL HISTORY: Syncope, fall, head and neck injury A preliminary report was provided at the time of the study and reviewed prior to final report. COMPARISON: None. TECHNIQUE: Axial 5 mm thick images of the head were obtained. Axial 2 mm thick images of the cervic al spine were obtained with sagittal and coronal reconstruction images generated and reviewed. All CT scans are performed using dose optimization technique as appropriate and may include automated exposure control or mA/KV adjustment according to patient size. FINDINGS: No intracranial hemorrhage, mass, edema or acute intracranial finding. No suspicion for acute infarct ion. Patient has mild to moderate for age atrophy and mild chronic ischemic change. Ventricles are in proportion to any volume loss. Mastoid air cells are clear. Orbits, facial bones and sinuses are sep arately detailed. Cervical bodies are normal in height. There is a slight retrolisthesis of the C5 body relative to C4 and C6. Alignment is otherwise normal. There is fusion across the C2-3 disc space. C4-5, C5-6 and C6- 7 disc spaces are narrowed. There is associated endplate spurring and uncovertebral joint hypertrophy . No fracture or acute bony abnormality. Central canal detail is inherently limited. Mild left-side a nd moderate right-sided bony foraminal encroachment at C5-6. Mild foraminal encroachment at C6-7. No paraspinal mass or hematoma. IMPRESSION: Negative CT head examination for acute or significant finding. Cervical spine degenerative changes are present as detailed. No acute findings seen. Facial bones, orbits and sinuses are separately detailed.
--- NOTE | 2018-07-12 09:05 | RAD REPORT ---
EXAM DESCRIPTION: CT - Facial Bones W/ Mpr - 07/12/2018 6:19 am CLINICAL HISTORY: Fall, right-sided facial trauma, facial pain A preliminary report was provided at the time of the study and reviewed prior to final report. COMPARISON: None. TECHNIQUE: Axial 2 millimeter thick images of the facial bones were obtained with sagittal and coron al reconstruction imaging. All CT scans are performed using dose optimization technique as appropriate and may include automated exposure control or mA/KV adjustment according to patient size. FINDINGS: No fracture of the mandible. Condyles are normally positioned. Mastoid air cells are clear with no skullbase fracture identified. Right periorbital soft tissue injury is evident. There are se veral punctate air densities in the soft tissues. No foreign body seen. No facial bone fracture seen. Faint lucency along the anterior aspect of the each zygomatic arch is b elieved to be remnant suture line. This matches the asymptomatic left side. No air-fluid level of the paranasal sinuses. No globe or orbital content injury identifiable. Minimal deviation of the nasal s eptum without an acute component. Patchy mucosal thickening seen in the floor of each maxillary sinus . IMPRESSION: Superior and lateral right periorbital soft tissue injury present with no postseptal orb ital injury identifiable. No facial bone fractures are confirmed.
--- NOTE | 2018-07-12 09:42 | EKG ---
Test Date: 2018-07-12 Test Time: 06:21:01 Sock Drier: TATE MEASUREMENT RESULTS: Intervals: Rate: 72 NE: 176 QRSD: 114 QT: 400 QTc: 438 [place]: P: 73 NE: 176 QRS: 34 T: 17 INTERPRETIVE STATEMENTS: Normal sinus rhythm Normal ECG Compared to ECG 05/19/2018 08:36:50 No significant changes Electronically Signed On 07-12-18 09:42:13 ONLINE [facility]CH[facility] by Joey Patel
--- NOTE | 2018-07-12 11:06 | RAD REPORT ---
EXAM DESCRIPTION: RAD - Elbow Right 3 View - 07/12/2018 9:16 am CLINICAL HISTORY: Trauma, elbow pain COMPARISON: None. FINDINGS: No fracture is identified and no elevated posterior fat pad. There is no dislocation or pe riosteal reaction noted. No foreign body or other soft tissue abnormality. Minimal spurring changes a re seen along the articular margin of the ulna anteriorly. No suspicious soft tissue finding. IMPRESSION: Minimal degenerative change with no acute bone or joint finding of the right elbow.
[2018-07-12] MEDS: NA CHLORIDE 0.9% 1,000 ML IV SCH ×2 (13:48→20:50)
[2018-07-12] MEDS: INSULIN -REGULAR HUMAN 50 UNIT/0.5 ML ML SQ SCH ×3 (13:48→20:49)
[2018-07-12] MEDS ORDERED: ACETAMINOPHEN 500 MG TAB PO PRN (13:48)
[2018-07-12 14:47] VITALS: BMI 27.8
[2018-07-12] MEDS ORDERED: PNEUMOCOCCAL VACCINE 0.5 ML IMVAC ONE (15:00)
[2018-07-12] MEDS: ENOXAPARIN 40 MG/0.4 ML SQ SCH (15:23)
[2018-07-12 16:15] LABS: Urine Appearance CLEAR; Urine Bilirubin NEGATIVE (NEG); Urine Blood NEGATIVE (NEG); Urine Color YELLOW; Urine Glucose 2+ (NEG); Urine Protein NEGATIVE (NEG); Urine Specific Gravity >=1.030 (1.005-1.030)
[2018-07-12 16:16] LABS: Urine Microscopic Reflex NO UMIC
--- NOTE | 2018-07-12 16:25 | P.HP ---
Certification for Inpatient Patient admitted to: Observation With expected LOS: <2 Midnights Practitioner: I am a practitioner with admitting privileges, knowledge of patient current condition, hospital course, and medical plan of care. Services: Services provided to patient in accordance with Admission requirements found in Title 42 Section 412.3 of the Code of Federal Regulations Patient History Date of Service: 07/12/18 Primary Care Provider: Dr. Pathak Reason for admission: Syncope vs mechanical fall History of Present Illness: This is a 59-year-old male with history of type 2 diabetes, hypertension, hyperlipidemia admitted for a fall. Per patient, he is not sure exactly what happened but states that he woke up this morning thinks he was going to get up to the bathroom and he fell, this was on witnessed but his date.. Seems that he hit his face on the corner of a table or the bed the patient is not really sure. He is not sure if he had any other symptoms with this fall. At the time of my exam, he was denying any chest pain, shortness of breath, dizziness, vision changes, abdominal pain, diarrhea/constipation, nausea or vomiting. He was also denying any headache or lightheadedness. In the ER, he had imaging done as he had a laceration to the right superior orbital region which required 5 sutures on the right lateral margin of 6 sutures on the right supraorbital region. Imaging of his elbow, head, C-spine and facial CT was negative for any acute fractures or injuries except for the superior and lateral right periorbital soft tissue injury that was noted. His labs were unremarkable, EKG was with normal sinus rhythm, troponins negative x1. He was hemodynamically stable. He received D Lo 5 for the pain and the pain was controlled. At the time of my exam, he was hemodynamically stable, alert oriented x3, not in any acute distress. He was laying in bed comfortably with sutures above history right eye, unable to open his right eye secondary to sutures Allergies Penicillins Allergy (Intermediate, Verified 07/12/18 15:05) Itching meloxicam [From Mobic] Adverse Reaction (Verified 07/12/18 15:06) Rash nelfon Adverse Reaction (Uncoded 07/12/18 15:06) Hives Home Medications: Simvastatin 20 mg PO BEDTIME 07/12/18 Sitagliptin Phosphate [Januvia*] 1 tab PO DAILY 07/12/18 Tamsulosin [Flomax*] 0.4 mg PO DAILY 07/12/18 Verapamil HCl [Verapamil Sr] 120 mg PO DAILY 07/12/18 glipiZIDE [Glipizide] 5 mg PO DAILY 07/12/18 - Past Medical/Surgical History Has patient received pneumonia vaccine in the past: No Diabetic: Yes -: HTN -: DM -: HLP -: high cholesterol -: back surgery x2 -: left shoulder sx -: right knee sx -: penile sx - Family History Mother -: Diabetes fatherr -: Heart disease, Diabetes, Other (see notes) Notes: aneurysm - Social History Smoking Status: Never smoker Alcohol use: Yes CD- Drugs: No Caffeine use: Yes Place of Residence: Home Review of Systems General: Unremarkable Eyes: As per HPI ENT: Unremarkable Respiratory: Unremarkable Cardiovascular: Unremarkable Gastrointestinal: Unremarkable Genitourinary: Unremarkable Musculoskeletal: Unremarkable Integumentary: Unremarkable Neurological: Unremarkable Lymphatics: Unremarkable Physical Examination - Vital Signs Temperature: 97.9 F Blood Pressure: 122/82 Pulse: 58 Respirations: 12 - Physical Exam General: Alert, In no apparent distress, Oriented x3 HEENT: PERRLA, Mucous membr. moist/pink, Other (5 sutures noted on right lateral margin of, 6 sutures on the right supraorbital region), EOMI, Sclerae nonicteric Neck: Supple, 2+ carotid pulse no bruit, No LAD, Without JVD or thyroid abnormality Respiratory: Clear to auscultation bilaterally, Normal air movement Cardiovascular: Regular rate/rhythm, Normal S1 S2 Gastrointestinal: Normal bowel sounds, No tenderness Musculoskeletal: No tenderness Integumentary: No rashes Neurological: Normal gait, Normal speech, Normal strength at 5/5 x4 extr, Normal tone, Normal affect Lymphatics: No axilla or inguinal lymphadenopathy - Studies Laboratory Data (last 24 hrs) 07/12/18 06:25: PT 12.0, INR 1.02, APTT 29.6 07/12/18 06:25: WBC 6.6, Hgb 15.4, Hct 45.5, Plt Count 217 07/12/18 06:25: Sodium 140, Potassium 4.1, BUN 16, Creatinine 1.20, Glucose 236 H Assessment and Plan - Plan This is a 67-year-old male with: Status post fall, initial encounter Mechanical fall versus syncopal episode Facial laceration Diabetes mellitus, [id number], with hyperglycemia Essential hypertension Hyperlipidemia This seems to be more of a mechanical fall as patient woke up from bed, attempted to walk to the bathroom. He himself is unsure if he had any other symptoms. At the time of my exam, denying any symptoms. Imaging negative for any acute abnormalities, orthostatics negative in the ER. Admit to the floor, monitor via tele. Monitor a.m. labs Pain control Glucose checks, ACHS. Mild sliding scale insulin ordered For restart home medications as tolerated, once there been reconciled. DVT prophylaxis: Lovenox GI prophylaxis: Not needed Diet: Heart healthy, 1800 Disposition: Admit to floor with tele. Monitor overnight via a.m. labs. Likely discharge home in the next 24-48 hr - Advance Directives Does patient have a Living Will: No Does patient have a Durable POA for Healthcare: No Physician Review: Patient Assessed, Agree with Above Assessment and Plan Time Spent Managing Pts Care (In Minutes): 35
[2018-07-12] MEDS: HYDROCODONE/APAP 5/325 MG TAB PO PRN ×2 (17:35→23:35)
[2018-07-12] MEDS ORDERED: HOME MED 1 EA UNK (Simvastatin [Simvastatin] 20 MG) PO SCH (21:00)
[2018-07-12] MEDS ORDERED: ATORVASTATIN 10 MG TAB PO SCH (21:00)
[2018-07-12 21:18] VITALS: O2SAT 94
[2018-07-13] MEDS: HYDROCODONE/APAP 5/325 MG TAB PO PRN ×2 (05:27→12:02)
[2018-07-13 06:38] LABS: Absolute Lymphocytes (CBC) 2.5 K/uL (0.7-4.9); Absolute Monocytes 0.5 K/uL (0.1-1.3); Basophils % 0.6 % (0-1.3); Hematocrit 41.6 % (39.6-49.0); Lymphocytes % 40.9 % (15.3-44.8); MPV 8.6 fL (7.6-11.3); Monocytes % 7.7 % (3.3-12.3); RBC Red Blood Cell Count 4.48 M/uL (4.33-5.43)
[2018-07-13 06:59] LABS: Albumin 3.1 g/dL (3.4-5.0); Bilirubin Total 0.6 mg/dL (0.2-1.0); Magnesium 2.1 mg/dL (1.8-2.4); Potassium 3.9 mmol/L (3.5-5.1)
[2018-07-13] MEDS: INSULIN -REGULAR HUMAN 50 UNIT/0.5 ML ML SQ SCH ×2 (07:30→12:09)
[2018-07-13] MEDS ORDERED: POTASSIUM 25 MEQ EFFERV TAB PO ONE (07:42)
[2018-07-13] MEDS ORDERED: VERAPAMIL HCL 120 MG PO SCH (09:00)
[2018-07-13] MEDS ORDERED: VERAPAMIL SR 240 MG TABLET PO SCH (09:00)
[2018-07-13] MEDS ORDERED: TAMSULOSIN 0.4 MG SR CAP PO SCH (09:00)
[2018-07-13] MEDS: ENOXAPARIN 40 MG/0.4 ML SQ SCH (09:43)
[2018-07-13] MEDS: NA CHLORIDE 0.9% 1,000 ML IV SCH (11:58)
[2018-07-13 14:06] VITALS: BP 144/79; TEMP 97.8
--- NOTE | 2018-07-13 17:17 | P.SSS ---
Patient History Date of Service: 07/13/18 Primary Care Provider: Dr. Pathak Reason for admission: Syncope vs mechanical fall History of Present Illness: This is a 59-year-old male with history of type 2 diabetes, hypertension, hyperlipidemia admitted for a fall. Per patient, he is not sure exactly what happened but states that he woke up this morning thinks he was going to get up to the bathroom and he fell, this was on witnessed but his date.. Seems that he hit his face on the corner of a table or the bed the patient is not really sure. He is not sure if he had any other symptoms with this fall. At the time of my exam, he was denying any chest pain, shortness of breath, dizziness, vision changes, abdominal pain, diarrhea/constipation, nausea or vomiting. He was also denying any headache or lightheadedness. In the ER, he had imaging done as he had a laceration to the right superior orbital region which required 5 sutures on the right lateral margin of 6 sutures on the right supraorbital region. Imaging of his elbow, head, C-spine and facial CT was negative for any acute fractures or injuries except for the superior and lateral right periorbital soft tissue injury that was noted. His labs were unremarkable, EKG was with normal sinus rhythm, troponins negative x1. He was hemodynamically stable. He received Magazine 5 for the pain and the pain was controlled. At the time of my exam, he was hemodynamically stable, alert oriented x3, not in any acute distress. He was laying in bed comfortably with sutures above history right eye, unable to open his right eye secondary to sutures Allergies Penicillins Allergy (Intermediate, Verified 07/12/18 15:05) Itching meloxicam [From Mobic] Adverse Reaction (Verified 07/12/18 15:06) Rash nelfon Adverse Reaction (Uncoded 07/12/18 15:06) Hives Home Medications: Metformin HCl [Glucophage*] 1,000 mg PO BIDWM 07/12/18 Simvastatin 20 mg PO BEDTIME 07/12/18 Sitagliptin Phosphate [Januvia*] 1 tab PO DAILY 07/12/18 Tamsulosin [Flomax*] 0.4 mg PO DAILY 07/12/18 Verapamil HCl [Verapamil Sr] 120 mg PO DAILY 07/12/18 glipiZIDE [Glipizide] 5 mg PO DAILY 07/12/18 Tramadol HCl [Ultram] 50 mg PO Q6HP PRN #15 tablet 07/13/18 - Past Medical/Surgical History Has patient received pneumonia vaccine in the past: No Diabetic: Yes -: HTN -: DM -: HLP -: high cholesterol -: back surgery x2 -: left shoulder sx -: right knee sx -: penile sx - Family History Mother -: Diabetes fatherr -: Heart disease, Diabetes, Other (see notes) Notes: aneurysm - Social History Smoking Status: Never smoker Alcohol use: Yes CD- Drugs: No Caffeine use: Yes Place of Residence: Home Review of Systems As noted Physical Examination - Vital Signs Temperature: 97.8 F Blood Pressure: 144/79 Pulse: 57 Respirations: 18 Pulse Ox (%): 94 - Physical Exam General: Alert, In no apparent distress, Oriented x3 HEENT: Atraumatic, PERRLA, Mucous membr. moist/pink, Other (Sutures noted right eye), EOMI, Sclerae nonicteric Neck: Supple, 2+ carotid pulse no bruit, No LAD, Without JVD or thyroid abnormality Respiratory: Clear to auscultation bilaterally, Normal air movement Cardiovascular: Regular rate/rhythm, Normal S1 S2 Gastrointestinal: Normal bowel sounds, No tenderness Musculoskeletal: No tenderness Integumentary: No rashes Neurological: Normal gait, Normal speech, Normal strength at 5/5 x4 extr, Normal tone, Normal affect Lymphatics: No axilla or inguinal lymphadenopathy Treatment Summary: Patient was admitted for a possible syncopal episode versus fall. This seems to be more of a mechanical fall as patient woke up from bed, attempted to walk to the bathroom. He himself is unsure if he had any other symptoms. At the time of my exam, denying any symptoms. Prior to discharge, continues to deny any symptoms of chest pain, shortness of breath, abdominal symptoms, vision changes, headache, dizziness or lightheadedness. He is not experienced any folds were syncopal order/near syncopal episodes while he has been in the hospital. He is not experienced any episodes of dizziness either. Telemetry has been clear overnight. Labs reviewed, unremarkable. Imaging negative for any acute abnormalities, orthostatics negative in the ER. Discharged home on tramadol for pain control. Remained stable otherwise, no changes made to the best medications upon discharge. Instructed to follow up his primary care physician and gravity prospecting operator. - Disposition Condition: GOOD Patient Discharge Instructions: Please return to the ER in 1 week for suture removals. Please proceed to the registration, let them know that you're here for suture removal. Please follow up with the primary care physician in 2 week. Please follow up with the gravity prospecting operator in 1-2 weeks. Diet: ADA Activity: Fall precautions Physician Review: Patient Assessed, Agree with Above Assessment and Plan Time Spent Managing Pts Care (In Minutes): 55
== END 2018-07-13 15:45 | disposition home or self-care (01) ==
LOC: ER 05:37 → ERHOLD 11:15 → 2ND 13:16
PROVIDERS: ADMIT Family Medicine; ATTEND Family Medicine
PROC: 0JQ10ZZ Repair Face Subcutaneous Tissue and Fascia, Open Approach (ICD-10-PCS; principal; 2018-07-12)
DX: S01.81XA Laceration without foreign body of other part of head, initial encounter (principal); E11.65 Type 2 diabetes mellitus with hyperglycemia; I10 Essential (primary) hypertension; E78.5 Hyperlipidemia, unspecified; W18.30XA Fall on same level, unspecified, initial encounter; Y92.003 Bedroom of unspecified non-institutional (private) residence as the place of occurrence of the external cause; Z88.0 Allergy status to penicillin
CPT/HCPCS: 12014; 36415 ×2; 70450; 70486; 72125; 73080; 76377; 80048; 80053; 81003; 82962 ×6; 83735; 84484 ×3; 85025 ×2; 85610; 85730; 93005; 94760; 99285; G0378 ×2; J1650 ×2; J7030 ×3

== ENCOUNTER 2020-01-30 16:33 | Emergency (ER) | payer OTHER ==
--- OUTSIDE RECORDS SUMMARY | 2020-01-30 16:45 | XMS REPORT ---
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 Assessment Benign prostatic hyperplasia with N40.1 Active lower urinary tract symptoms Medications Medication Code Code Instructions Start End Status Dosage System Date [facility][NOTE 3] 87593027978 100 MG Orally Active 1 tabl et Once a day Tamsulosin HCl [facility][NOTE 3] 73542291792 0.4 MG Orally Active 1 capsule Once a day Verapamil HCl [facility][NOTE 3] 53422989177 120 MG Orally Active 1 tablet Three times a day Simvastatin [facility][NOTE 3] 85741141367 20 MG Orally Active 1 t ablet Once a day in the evening Results No Known Results Summary Purpose [employer] Submission
--- OUTSIDE RECORDS SUMMARY | 2020-01-30 16:45 | XMS REPORT | Clinical Summary ---
:1950 Author Organization [facility] Address [address] [place] [address] Care Team Providers Name Role Phone Drake Pathak MD Primary Care Provider Allergies Active Allergy Reactions Severity Noted Date Comments Meloxicam Rash Low 05/02/2018 Fenoprofen Rash Low 05/02/2018 Penicillins Swelling 05/02/2018 Medications Medication Sig Dispensed Refills Start Date End Date Status verapamil (CALAN-SR) Take 120 mg by 0 Active 120 MG ER tablet mouth daily. SITagliptin (JANUVIA) Take 100 mg by 0 Active 100 MG tablet mouth daily. glipiZIDE (GLUCOTROL) Take 5 mg by mouth 0 Active 5 MG tablet daily. simvastatin (ZOCOR) Take 20 mg by mouth 0 Active 20 MG tablet nightly. metFORMIN Take 500 mg by 0 Activ e (GLUCOPHAGE) 500 MG mouth 2 (two) times tablet daily with breakfast and dinner. tamsulosin (FLOMAX) Take 0.4 mg by 0 Active 0.4 mg Cap 24 hr mouth daily. 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 Last Filed Vital Signs Not on file Plan of Treatment Not on file Results Not on fileafter 01/29/2019 Insurance Payer Benefit Plan / Group Subscriber ID Type Phone A ddress MEDICARE MEDICARE A B xxxxxxxxxxx Medicare A[employer]NA - MGD CARE AET[employer] INDEMNITY NON CONTR xxxxxx Comm Advance Directives Patient has advance care planning documents, and code status on file. For more information, please contact:[address] [phone] Code Status Date Activated Date Inactivated Comments Full Code 05/10/2018 9:48 AM 05/10/2018 4:33 PM This code status was determined by: Patient
--- OUTSIDE RECORDS SUMMARY | 2020-01-30 16:45 | XMS REPORT | Continuity of Care Document ---
:1950 Author Organization [facility] t Address [address] [place] [address] Care Team Providers Name Role Phone Drake Pathak MD Primary Care Physician MITZY Attending Clinician Unavailable MITZY Admitting Clinician Unavailable Problems Condition Condition Condition Status Onset Resolution Last Treating Co mments Source Name Details Category Date Date Treatment Clinician Date Induration Induration Disease Active 2017-[address] penis penis 0-17 [facility] Medica l 00 Center Benign Benign Diagnosis Active [facility] prostatic prostatic Luke [facility] - hyperplasi hyperplasi Me moria a with a with l lower lower Outpati urinary urinary ent tract tract Clinics symptoms symptoms Induration Induration Diagnosis Active [facility] penis penis [facility] Nocturia Nocturia Diagnosis Active [facility] Allergies, Adverse Reactions, Alerts Allergy Allergy Status Severity Reaction(s) Onset Inactive Treating Comm ents Source Name Type Date Date Clinician Meloxica Propensi Active Rash 2017-[address] [facility] m ty to 0-09 [facility] - adverse 00:00: Medical reaction 00 Center s Fenoprof Propensi Active Rash 2017-[address] [facility] en ty to 0-09 [facility] - adverse 00:00: Medical reaction 00 Center s Penicill Propensi Active Swelling 2017-[address] ins ty to 0-09 [facility] - adverse 00:00: Medical reaction 00 Center s penicill Adverse Active Info Not [facility] in Reaction Available [facility] Mobic Adverse Active Info Not [facility] Reaction Available [facility] Social History Social Habit Start Date Stop Date Quantity Comments Source Sex Assigned At [facility] St Ruth james - [facility] Alcohol Comment 2018-05-02 2018-05-02 rarely JASS Benoit - 00:00:00 00:00:00 [facility] Smoking Status Start Date Stop Date Source Never smoker [facility] Medications Ordered Filled Start Stop Current Ordering Indication Dosage Frequency Signature Comments Components Source Medication Medication Date Date Medication? Clinician (SIG) Name Name verapamil 2017-07 Yes 120mg QD Take [address] (CALAN-SR) 0-09 mg by [facility] - 120 MG ER 10:44: mouth Medical tablet 00 daily. [place] SITagliptin 2017-07 Yes 100mg QD Take [address] (JANUVIA) 0-09 mg by [facility] - 100 MG 10:44: mouth Medical tablet 00 daily. [place] glipiZIDE 2017-07 Yes 5mg QD Take [address] (GLUCOTROL) 0-09 by mouth Luke s - 5 MG tablet 10:44: daily. [facility] 00 [place] simvastatin 2017-07 Yes 20mg QD Take [address] (ZOCOR) 20 0-09 by mouth [facility] - MG tablet 10:44: nightly. [facility] jax 00 [place] metFORMIN 2017-07 Yes 500mg Take [address] (GLUCOPHAGE 0-09 mg by [facility] - ) 500 MG 10:44: mouth 2 Medica l tablet 00 (two) Center times daily with breakfast and dinner. tamsulosin 2017-07 Yes .4mg QD Take 0.[address] (FLOMAX) 0-09 mg by [facility] - 0.4 mg Cap 10:44: mouth Medica l 24 hr 00 daily. [place] capsule Simvastatin Simvastatin Yes Gloria [address] [facility] [address] [place] [facility] Januvia Januvia Yes Gloria [address] [facility] Verapamil Verapamil Yes Gloria [address] HCl HCl [facility] Tamsulosin Tamsulosin Yes Gloria [address] HCl HCl [facility] Procedures This patient has no known procedures. Encounters Start End Encounter Admission Attending Care Care Encounter Source Date/Time Date/Time Type Type Clinicians Facility Department ID 2019-11-08 2019-11-08 [place]patient [place] [id number] 09:30:00 09:30:00 t Specialty/U Ruth kes - Specialty rology Memori a /Urology Clinic l [facility] 2019-10-11 2019-10-11 [facility]patient [place] [id number] 14:45:00 14:45:00 t Specialty/U Ruth kes - Specialty rology Memori a /Urology Clinic l [facility] ent [facility] 2019-09-28 2019-09-28 Outpatient [place] [id number] 10:45:00 10:45:00 t Specialty/U Ruth kes - Specialty rology Memori a /Urology Clinic l [facility] 2018-02-02 2018-02-02 Outpatient Lobito Robint [id number] 11:30:00 11:30:00 t Specialty/U Ruth kes - Special[facility] rology [facility] Results Test Description Test Time Test Comments Results Result Comments Source CBC W/PLT COUNT & AUTO DIFFERENTIAL 2018-05-10 10:57:00 Test Item Value Reference Range Interpretation Comme nts WHITE BLOOD CELL COUNT (BEAKER) (test code = 775) 6.1 K/ L 3.5- 10.5 RED BLOOD CELL COUNT (BEAKER) (test code = 761) 4.64 M/ L 4.63-6 .08 HEMOGLOBIN (BEAKER) (test code = 410) 14.7 GM/DL 13.7-17.5 HEMATOCRIT (BEAKER) (test code = 411) 43.7 % 40.1-51.0 MEAN CORPUSCULAR VOLUME (BEAKER) (test code = 753) 94.2 fL 79. 0-92.2 H MEAN CORPUSCULAR HEMOGLOBIN (BEAKER) (test code = 751) 31.7 pg 25.7-32.2 MEAN CORPUSCULAR HEMOGLOBIN CONC (BEAKER) (test code = 752) 33.6 GM/DL 32.3-36.5 RED CELL DISTRIBUTION WIDTH (BEAKER) (test code = 412) 12.4 % 11.6-14.4 PLATELET COUNT (BEAKER) (test code = 756) 255 K/CU MM 150-450 MEAN PLATELET VOLUME (BEAKER) (test code = 754) 9.8 fL 9.4-12 .4 NUCLEATED RED BLOOD CELLS (BEAKER) (test code = 413) 0 /100 WBC 0 -0 NEUTROPHILS RELATIVE PERCENT (BEAKER) (test code = 429) 56 % LYMPHOCYTES RELATIVE PERCENT (BEAKER) (test code = 430) 33 % MONOCYTES RELATIVE PERCENT (BEAKER) (test code = 431) 8 % EOSINOPHILS RELATIVE PERCENT (BEAKER) (test code = 432) 1 % BASOPHILS RELATIVE PERCENT (BEAKER) (test code = 437) 1 % NEUTROPHILS ABSOLUTE COUNT (BEAKER) (test code = 670) 3.44 K/ L 1.78-5.38 LYMPHOCYTES ABSOLUTE COUNT (BEAKER) (test code = 414) 2.02 K/ L 1.32-3.57 MONOCYTES ABSOLUTE COUNT (BEAKER) (test code = 415) 0.51 K/ L 0. 30-0.82 EOSINOPHILS ABSOLUTE COUNT (BEAKER) (test code = 416) 0.08 K/ L 0.04-0.54 BASOPHILS ABSOLUTE COUNT (BEAKER) (test code = 417) 0.03 K/ L 0. 01-0.08 IMMATURE GRANULOCYTES-RELATIVE PERCENT (BEAKER) (test code 0 % 0-1 = 2801) POCT-GLUCOSE [id number] 10:40:00 Test Item Value Reference Range Interpretation Comments POC-GLUCOSE METER 138 mg/dL 70-[address] [facility] 6720 (BEAKER) (test code = ESME [place]QUE[place] 1538) [id number] 13:26:00 Test Item Value Reference Range Interpretation Comments SODIUM (BEAKER) (test 136 meq/L 136-145 code = 381) POTASSIUM (BEAKER) 3.9 meq/L 3.5-5.1 Specimen slightly (test code = 379) hemolyzed CHLORIDE (BEAKER) 104 meq/L 98-107 (test code = 382) CO2 (BEAKER) (test 22 meq/L 22-29 code = 355) [id number] 13:26:00 Test Item Value Reference Range Interpretation Comments GLUCOSE RANDOM (BEAKER) (test code 258 mg/dL 70-105 H = 652) BUN AND [id number] 13:26:00 Test Item Value Reference Range Interpretation Comments BLOOD UREA NITROGEN 19 mg/dL 7-21 (BEAKER) (test code = 354) CREATININE (BEAKER) 1.13 mg/dL 0.57-1.25 Specimen slightly (test code = 358) hemolyzed EGFR (BEAKER) (test 65 mL/min/1.73 ESTIMA DULCE GFR IS code = 1092) sq m NOT ACCURATE CREATININE CLEARANCE IN PREDICTING GLOMERULAR FILTRATION RATE . ESTIMATED GFR I S NOT APPLICABLE FOR DIALYSIS PATIHOWARD TS. [id number] 11:35:00 Test Item Value Reference Range Interpretation Comments HEMOGLOBIN (BEAKER) (test code = 15.4 GM/DL 13.7-17.5 410)
[2020-01-30] MEDS ORDERED: ACETAMINOPHEN 325 MG TABLET ONE (21:02)
--- NOTE | 2020-01-30 23:16 | ER ---
Nurse's Notes [facility] Name: Tim Hair Age: 69 yrs Sex: Male : 1950 Arrival Date: 01/30/2020 Time: 16:40 Bed External Waiting Private MD: Diagnosis: Presentation: 01/29 16:47 Chief complaint: Patient states: "My thinks I have the COVID" Cough, congestion, ss bilateral leg weakness, eye burning that began yesterday. Coronavirus screen: Proceed with normal triage. Patient reports a cough. Patient denies shortness of breath or difficulty breathing. Patient reports a measured and/or subjective temperature greater than 100.4F. Patient denies travel on a cruise ship or to a country the [facility] currently lists as an affected area. Patient denies contact with known and/or suspected case of COVID-19. Ebola Screen: Patient denies exposure to infectious person. Patient denies travel to an Ebola-affected area in the 21 days before illness onset. Initial Sepsis Screen: Does the patient meet any 2 criteria? No. Patient's initial sepsis screen is negative. Does the patient have a suspected source of infection? No. Patient's initial sepsis screen is negative. Risk Assessment: Do you want to hurt yourself or someone else? Patient reports no desire to harm self or others. Onset of symptoms was January 29, 2020. 16:47 Method Of Arrival: Ambulatory 16:47 Acuity: RAIMUNDO 3 Historical: - Allergies: 16:49 Ibuprofen; 16:49 Mobic; 16:49 Nalfon; 16:49 PENICILLINS; - PMHx: 16:49 Diabetes - NIDDM; High Cholesterol; Hypertension; ss - Immunization history:: Adult Immunizations up to date. - Social history:: Smoking status: Patient denies any tobacco usage or history of. Vital Signs: 16:47 BP 148 / 83; Pulse 111; Resp 17; Temp 99.6(TE); Pulse Ox 97% on R/A; Weight 95.25 kg; ss Height 5 ft. 11 in. (180.34 cm); Pain 0/10; 16:47 Body Mass Index 29.29 (95.25 kg, 180.34 cm) ED Course: 16:40 Patient arrived in ED. [facility] 16:48 Triage completed. 16:49 Arm band placed on right wrist. 20:42 Mike Landers MD is Attending Physician. luciano 20:51 Alondra Nunez RN is Primary Nurse. jesse Administered Medications: No medications were administered Outcome: 22:11 Patient left the ED. sg Signatures: Bob Triplett RN RN Mike Coffman MD MD cha Smirch, Shelby, RN RN ss Antunez, Elena, NORBERT RN Arnel Cortés fj1
[2020-01-30 23:53] VITALS: BP 148/83; TEMP 99.6; O2SAT 97
== END 2020-01-30 22:11 | disposition left against medical advice (07) ==
LOC: ER 16:33
DX: Z53.21 Procedure and treatment not carried out due to patient leaving prior to being seen by health care provider (principal)
CPT/HCPCS: 99281

== ENCOUNTER 2020-12-16 16:21 | Emergency (ER) | payer OTHER ==
--- OUTSIDE RECORDS SUMMARY | 2020-12-16 16:24 | XMS REPORT | Continuity of Care Document ---
:1950 Author Organization [facility] t Address [address] [place] [address] Care Team Providers Name Role Phone Drake Pathak MD Primary Care Physician VISIT, UATS Attending Clinician Unavailable Shannon Luna Attending Clinician Gonzalo GUTIÉRREZ, H Attending Clinician Lab, Fam Pob I Attending Clinician Unavailable Doctor Unassigned, Name Attending Clinician Unavailable Gino Muro Attending Clinician Pcp, Does Not Have A Attending Clinician MITZY Attending Clinician Unavailable MITZY Admitting Clinician Unavailable Problems Condition Condition Condition Status Onset Resolution Last Treating Co mments Source Name Details Category Date Date Treatment Clinician Date Peyronie's Peyronie's Disease Active 2017-[address] disease disease 0-17 [facility] - 00:[facility]: [address] Diabetes Problem Resolve 2020-12-12 Fl moria mellitus d 21:28:53 l (disorder) Diabetes He rmann mellitus (disorder) Resolved Problem 12/12/2020 [facility] Group Hyperchole Problem Resolve 2020-12-12 Memoria sterolemia d 21:28:53 l (disorder) Nick n Hyperchole sterolemia (disorder) Resolved Problem 12/12/2020 Medical Group Hypertensi Problem Resolve 2020-12-12 Memoria ve d 21:28:53 l disorder, [place] systemic Hypertensi arterial ve (disorder) disorder, systemic arterial (disorder) Resolved Problem 12/12/2020 Medical Group Benign Problem Active 2020-12-12 Memor ia prostatic 21:28:53 l hyperplasi Benign Herm miesha a prostatic (disorder) hyperplasi a (disorder) Active Problem 12/12/2020 Medical Group Erectile Problem Active 2020-12-12 Mem oria dysfunctio 21:28:53 l n Erectile Nick n dysfunctio n Active Problem 12/12/2020 Medical Group Raised Problem Active 2020-12-12 Memor ia prostate 21:28:53 l specific Raised Nick n antigen prostate (finding) specific antigen (finding) Active Problem 12/12/2020 Medical Group Benign Benign Diagnosis Active [facility] prostatic [...] [facility] penicill penicill Active Memori a ins ins l [place] Mobic Mobic Active Memoria l [place] Malathio Malathio Active Memori a n n l [place] Social History Social Habit Start Date Stop Date Quantity Comments Source Sex Assigned At [facility] [place] Tobacco use and 2018-05-10 2018-05-10 Never used [facility] ke - exposure 00:00:00 00:00:00 Medical Center Alcohol intake 2018-05-10 2018-05-10 [facility] - [facility]00 [facility] alcohol [facility] (finding) Alcohol Comment 2018-05-02 2018-05-02 rarely JASS Benoit - 00:00:00 00:00:00 Medical Center Smoking Status Start Date Stop Date Source Never smoker [facility] Medications Ordered Filled Start Stop Current Ordering Indication Dosage Frequency Signature Comments Components Source Medication Medication Date Date Medication? Clinician (SIG) Name Name tamsulosin Yes 0.4 mg = 1 M emoria 0.4 mg oral 1-25 cap, PO, l capsule 16:47: Daily, # Nick n 00 30 cap, 3 Refill(s), Pharmacy: [facility] 149, 180.34, cm, 08/18/20 10:22:00 [employer], Height, 90.909, kg, 08/18/20 10:22:00 [employer], Weight Sulfamethox 2019-07 Yes 1 tab, PO, Memoria azole 800 2-30 BID, X 10 l MG / 14:56: day, # 20 [place] Trimethopri 00 tab, 0 m 160 MG Refill(s), Oral Tablet Pharmacy: [Bactrim] [facility] 149, 180.34, cm, 07/23/20 8:43:00 [employer], Height, 89.545, kg, 07/23/20 8:43:00 [employer], Weight Farxiga 2019-07 Yes PO, Daily, Reginald daniella 2-30 0 l 14:51: Refill(s) [place] tadalafil 2019-07 Yes 10 mg = 1 Mem oria 10 MG Oral 0-07 tab, PO, l Tablet 15:43: Daily, PRN Meagan nn [Cialis] 00 for erectile dysfunctio n, # 10 tab, 1 Refill(s), Pharmacy: [facility] 149, 180.34, cm, 04/30/20 10:00:00 CDT, Height, 90.455, kg, 04/30/20 10:00:00 CDT, Weight tamsulosin 2019-07 Yes 0.4 mg = 1 M emoria 0.4 mg oral 0-07 cap, PO, l capsule 15:43: Daily, # Nick n 00 30 cap, 0 Refill(s), Pharmacy: [facility] 149, 180.34, cm, 04/30/20 10:00:00 CDT, Height, 90.455, kg, 04/30/20 10:00:00 CDT, Weight glimepiride 2019-07 Yes 0 Memori a 4 mg oral 0-07 Refill(s) l tablet 15:08: losartan 50 2019-07 Yes 0 Memori a mg oral 0-07 Refill(s) l tablet 15:08: Metformin 2019-07 Yes 0 Memoria hydrochlori 0-07 Refill(s) l de 1000 MG 15:08: Oral Tablet 00 ATORVASTATI 2019-07 Yes ATORVASTAT Memoria N TAB 40MG 0-07 IN TAB l 15:08: 40MG, [place] 00 Refill(s) 0 tamsulosin 2019-07 Yes 0 Memoria 0.4 mg oral 0-07 Refill(s) l capsule 15:08: verapamil 2017-07 Yes 120mg QD Take [address] (CALAN-SR) 0-17 mg by [facility]ukes - 120 MG ER 14:33: mouth Medical tablet 30 daily. [place] SITagliptin 2017-07 Yes 100mg QD Take [address] (JANUVIA) 0-17 mg by [facility] - 100 MG 14:33: mouth Medical tablet 30 daily. [place] glipiZIDE 2017-07 Yes 5mg QD Take [address] (GLUCOTROL) 0-17 by mouth Luke s - 5 MG tablet 14:33: daily. [facility] 30 [place] simvastatin 2017-07 Yes 20mg QD Take [address] (ZOCOR) 20 0-17 by mouth [facility]ukes - MG tablet 14:33: nightly. [facility] 30 [place] metFORMIN 2017-07 Yes 500mg Take [address] (GLUCOPHAGE 0-17 mg by [facility]ukes - ) 500 MG 14:33: mouth 2 Medica l tablet 30 (two) Center times daily with breakfast and dinner. tamsulosin 2017-07 Yes .4mg QD Take 0.[address] (FLOMAX) 0-17 mg by [facility]ukes - 0.4 mg Cap 14:33: mouth Medica l 24 hr 30 daily. Center capsule Simvastatin Simvastatin Yes Gloria [address] [facility] [address] [place] [facility] the [facility] - [facility] Januvia Januvia Yes Gloria [address] [facility] - Memoria l Outpati ent Clinics Verapamil Verapamil Yes Gloria [address] HCl HCl [place] [facility] Tamsulosin Tamsulosin Yes Gloria [address] HCl HCl [facility] [facility] Vital Signs Vital Name Observation Time Observation Value Comments Source Height 2020-11-03 14:30:00 180.34 cm [facility] [place] Weight 2020-11-03 14:30:00 [facility] [place] BMI Calculated 2020-11-03 14:30:00 Memori al [place] Height 2020-08-18 16:22:00 180.34 cm [facility] [place] Weight 2020-08-18 16:22:00 [facility] [place] BMI Calculated 2020-08-18 16:22:00 Memori al [place] Height 2020-07-23 14:43:00 180.34 cm [facility] [place] Weight 2020-07-23 14:43:00 [facility] [place] BMI Calculated 2020-07-23 14:43:00 Memori al [place] Systolic (mm Hg) 2020-04-30 15:00:00 Reginald rial [place] Diastolic (mm Hg) 2020-04-30 15:00:00 Mem orial [place] Heart Rate 2020-04-30 15:00:00 [facility] [place] Height 2020-04-30 15:00:00 180.34 cm [facility] [place] Weight 2020-04-30 15:00:00 [facility] [place] BMI Calculated 2020-04-30 15:00:00 Memori al [place] Procedures Procedure Date / Time Performed Performing Clinician Sourc e Knee reoperations [facility] Plan of Care Planned Activity Planned Date Details Comments Source Future Scheduled 2020-03-25 INFLUENZA VACCINE (#1) [facility] 00:00:00 [code = INFLUENZA Medical Ce nter VACCINE (#1)] Future Scheduled 2014 PNEUMOCOCCAL 65+ Y[facility] - Test 00:00:00 (1 of 1 - Medical Center [id number] PCV13) [code = PNEUMOCOCCAL 65+ YRS (1 of 1 - [id number] PCV13)] Future Scheduled 2005-01-[address] [facility] - Test 00:00:00 WELLNESS (YEAR 2 or Medical Center FIRST YEAR if no IPPE) [code = MEDICARE ANNUAL WELLNESS (YEAR 2 or FIRST YEAR if no IPPE)] Future Scheduled [address] [facility] Naeem es - Test 00:00:00 malignant neoplasm of Medica l Center colon (procedure) [code = 716843657] Encounters Start End Encounter Admission Attending Care Care Encounter Source Date/Time Date/Time Type Type Clinicians Facility Department ID 2020-12-10 2020-12-10 Outpatient VISIT, MG MG [id number] 09:30:00 09:30:00 NURSE UATS 07 2020-11-26 2020-11-27 Outpatient [facility] [id number] 11:24:11 11:24:11 00 2020-11-24 2020-11-24 Outpatient Staller, [facility]MG [facility] [id number] 14:30:00 14:30:00 Elisa L 06 2020-11-03 2020-11-03 Outpatient Staller, [facility]MG [facility] [id number] 09:00:00 23:59:59 Elisa L 05 2020-09-15 2020-09-15 Outpatient Staller, MG MG [id number] 09:00:00 09:00:00 Elisa L 04 2020-08-18 2020-08-18 Outpatient Staller, [facility]MG MH[facility] [id number] 10:00:00 23:59:59 Elisa L 03 2020-07-30 2020-07-30 Outpatient Staller, MG MHMG [id number] 08:30:00 08:30:00 Elisa L 01 2020-07-23 2020-07-23 Outpatient Staller, MG MHMG [id number] 08:45:00 23:59:59 Elisa L 2020-05-17 2020-05-17 BARBIE Johnson [id number] 00:00:00 00:00:00 (Out) Bruno Leon [place] [id number] [facility] [id number] 2020-05-16 2020-05-16 Laboratory Lab, [facility] [id number] 09:54:35 10:14:35 Only Fam Pob [facility] [id number] [place] [id number] Professio [phone] nal [address] 2020-05-16 2020-05-16 Letter Doctor BARBIE [id number] 00:00:00 00:00:00 (Out) Unassigned, DOMO [id number] [facility] [id number] 2020-04-30 2020-04-30 Outpatient Cheryl, [facility] [id number] 09:40:00 23:59:59 Elisa Ortega 00 2020-02-21 2020-02-21 Telephone Gladys, [facility] [id number] 00:00:00 00:00:00 Ann Gino [place] [id number] [place] [id number] PEDIATRIC [phone] AND ADULT [facility] 2020-02-20 2020-02-20 Laboratory Lab, [facility] [id number] 09:19:12 09:39:12 Only Fam Pob I Health [id number] [place] [id number] Professio [phone] [place] [address] [address] 2020-02-20 2020-02-20 Letter Doctor BARBIE [id number] 00:00:00 00:00:00 (Out) Unassigned, ODMO [id number] [place] [facility] [id number] 2020-02-20 2020-02-20 Orders Doctor BARBIE [id number] 00:00:00 00:00:00 Only Unassigned, DOMO [id number] [place] [facility] [id number] 2020-02-18 2020-02-18 Telephone Pcp, [facility] [id number] 00:00:00 00:00:00 Patient Health [id number] Does Not [place] [id number] Have A Professio [phone] [place] [address] [address] 2019-11-08 2019-11-08 [facility] [id number] 09:30:00 09:30:00 t Specialty/U Ruth kes - Specialty rology Memori a /Urology Clinic l Clinic Outpati ent Clinics 2019-10-11 2019-10-11 [facility]patient [facility] [id number] 14:45:00 14:45:00 t Specialty/U Ruth kes - Specialty rology Memori a /Urology Clinic l [facility] 2019-09-28 2019-09-28 [facility]patient [facility] [id number] 10:45:00 10:45:00 t Specialty/U Ruth kes - Specialty rology Memori a /Urology Clinic l [facility] 2018-02-02 2018-02-02 Outpatient [facility] [id number] 11:30:00 11:30:00 t Specialty/U Ruth kes - Specialty rology Memori a /Urology Clinic l Clinic [facility] ent [facility] Results Test Description Test Time Test Comments Results Result Comments Source SPECIAL [facility]MISTR[facility]07 [facility] CBC W/PLT COUNT & AUTO DIFFERENTIAL 2018-05-10 [...] code 0 % 0-1 = 2801) POCT-GLUCOSE [id number] 10:40:00 Test Item Value Reference Range Interpretation Comments POC-GLUCOSE METER 138 mg/dL 70-110 H TESTED AT [facility] 6720 (BEAKER) (test code = ESME [place]QUE[place] 1538) [id number] 13:26:00 Test Item Value Reference Range Interpretation Comments SODIUM (BEAKER) (test 136 meq/L 136-145 code = 381) POTASSIUM (BEAKER) 3.9 meq/L 3.5-5.1 Specimen slightly (test code = 379) hemolyzed CHLORIDE (BEAKER) 104 meq/L 98-107 (test code = 382) CO2 (BEAKER) (test 22 meq/L 22-29 code = 355) [id number] 13:26:00 Test Item Value Reference Range Interpretation Comments GLUCOSE RANDOM (BEAKER) (test code 258 mg/dL 70-105 H = 652) BUN AND [id number] 13:26:00 Test Item Value Reference Range Interpretation Comments BLOOD UREA NITROGEN 19 mg/dL 7-21 (BEAKER) (test code = 354) CREATININE (BEAKER) 1.13 mg/dL 0.57-1.25 Specimen slightly (test code = 358) hemolyzed EGFR (BEAKER) (test 65 mL/min/1.73 ESTIMA DULEC GFR IS code = 1092) sq m NOT ACCURATE CREATININE CLEARANCE IN PREDICTING GLOMERULAR FILTRATION RATE . ESTIMATED GFR I S NOT APPLICABLE FOR DIALYSIS PATIEN TS. [id number] 11:35:00 Test Item Value Reference Range Interpretation Comments HEMOGLOBIN (BEAKER) (test code = 15.4 GM/DL 13.7-17.5 410)
[2020-12-16 17:05] LABS: Absolute Lymphocytes (CBC) 2.5 K/uL (0.7-4.9); Basophils % 1.2 % (0-1.3); Hematocrit 44.5 % (39.6-49.0); Lymphocytes % 32.6 % (15.3-44.8); RBC Red Blood Cell Count 4.78 M/uL (4.33-5.43)
[2020-12-16 17:08] LABS: Protime INR 1.06
[2020-12-16 17:23] LABS: ALT/SGPT 31 U/L (12-78); AST/SGOT 18 U/L (15-37); Albumin 3.9 g/dL (3.4-5.0); Alkaline Phosphatase 121 U/L (45-117); BUN Blood Urea Nitrogen 18 mg/dL (7-18); Bicarbonate 24 mmol/L (21-32); Bilirubin Direct 0.2 mg/dL (0-0.2); Bilirubin Total 0.6 mg/dL (0.2-1.0); Glucose Level 195 mg/dL (74-106); Magnesium 2.1 mg/dL (1.8-2.4); NT PRO-BNP 62 pg/mL (<125); Potassium 3.7 mmol/L (3.5-5.1); Protein, Total 7.2 g/dL (6.4-8.2); Sodium Level 138 mmol/L (136-145); Troponin (Emerg Dept Use Only) < 0.02 ng/mL (0.0-0.045)
[2020-12-16] MEDS ORDERED: ONDANSETRON 4 MG/2 ML VIAL ONE (17:30)
--- NOTE | 2020-12-16 17:52 | RAD REPORT ---
EXAM DESCRIPTION: RAD - Chest Single View - 12/16/2020 5:30 pm CLINICAL HISTORY: CHEST PAIN COMPARISON: Portable April 2018 TECHNIQUE: AP portable chest image was obtained 12/16/2020 5:30 pm . FINDINGS: Lung volumes are low. No peripheral mass or consolidation. Interstitial pattern is promine nt but not substantially different when adjusting for the lower lung volume. Significant failure or v olume overload are not suspected. Heart and vasculature are normal. No measurable pleural effusion and no pneumothorax. No acute bony abnormality seen. No acute aortic findings suspected. IMPRESSION: No acute cardiopulmonary process. No significant change from comparison.
[2020-12-16 18:11] LABS: SARS-COV-2 RT PCR NEGATIVE (NEGATIVE)
--- NOTE | 2020-12-16 18:45 | ER ---
Nurse's Notes [facility] Name: Tim Hair Age: 70 yrs Sex: Male : 1950 Arrival Date: 12/16/2020 Time: 16:24 Bed 26 Private MD: Diagnosis: Chest pain, unspecified Presentation: 12/16 16:36 Chief complaint: Patient states: chest tightness and SOB at rest x 2 days. Feeling week ca1 and dizzy as well. Coronavirus screen: Client denies travel out of the [place] in the last 14 days. fatigue, shortness of breath, Client presents with at least one sign or symptom that may indicate coronavirus-19. Standard/surgical mask placed on the client. Provider contacted for isolation considerations. Ebola Screen: Patient negative for fever greater than or equal to 101.5 degrees Fahrenheit, and additional compatible Ebola Virus Disease symptoms Patient denies exposure to infectious person. Patient denies travel to an Ebola-affected area in the 21 days before illness onset. No symptoms or risks identified at this time. Initial Sepsis Screen: Does the patient meet any 2 criteria? No. Patient's initial sepsis screen is negative. Does the patient have a suspected source of infection? No. Patient's initial sepsis screen is negative. Risk Assessment: Do you want to hurt yourself or someone else? Patient reports no desire to harm self or others. Onset of symptoms was December 16, 2020. 16:36 Method Of Arrival: Wheelchair ca1 16:36 Acuity: RAIMUNDO 3 ca1 Historical: - Allergies: 16:47 Ibuprofen; ca1 16:47 Mobic; ca1 16:47 Nalfon; ca1 16:47 PENICILLINS; ca1 - Home Meds: 16:47 atorvastatin oral oral [Active]; Metformin Oral [Active]; tamsulosin 0.4 mg Oral cp24 1 ca1 cap once daily [Active]; losartan oral oral [Active]; Farxiga oral oral [Active]; - PMHx: 16:47 Diabetes - NIDDM; High Cholesterol; Hypertension; ca1 - Immunization history:: Client reports receiving the 2nd dose of the Covid vaccine, Client reports receiving the 1st dose of the Covid vaccine, Pneumococcal vaccine is up to date. - Social history:: Smoking status: Patient denies any tobacco usage or history of. Screenin:02 Abuse screen: Denies threats or abuse. Denies injuries from another. Nutritional zb screening: No deficits noted. Tuberculosis screening: No symptoms or risk factors identified. Fall Risk None identified. Assessment: 17:02 General: Appears in no apparent distress. uncomfortable, Behavior is calm, cooperative, zb appropriate for age, Reports feeling ill for 2-3 days, fatigue for 2-3 days. Pain: Complains of pain in mid-sternal area Pain does not radiate. Pain currently is 3 out of 10 on a pain scale. Quality of pain is described as heavy, pressure, Pain began 2-3 days ago. Is continuous. Neuro: Level of Consciousness is awake, alert, obeys commands, Oriented to person, place, time, situation, Reports dizziness, since 2-3. Cardiovascular: Reports chest pain, lightheadedness, nausea, shortness of breath, Heart tones S1 S2 present Patient's skin is warm and dry. Pulses are all present. Respiratory: Reports shortness of breath Airway is patent Respiratory effort is even, unlabored, Respiratory pattern is regular, symmetrical, Breath sounds are clear bilaterally. GI: Abdomen is round non-distended, Bowel sounds present X 4 quads. GI: Reports diarrhea, nausea. Derm: Skin is intact, is healthy with good turgor, Skin is dry, Skin is normal, Skin temperature is warm. Musculoskeletal: Circulation, motion, and sensation intact. Range of motion: intact in all extremities. 17:18 Reassessment: ECP notified of patient nausea. medication ordered. zb 18:25 Reassessment: Patient appears in no apparent distress at this time. Patient and/or zb family updated on plan of care and expected duration. Pain level reassessed. Patient is alert, oriented x 3, equal unlabored respirations, skin warm/dry/pink. ECP at bedside discussing care. remains at bedside. 19:10 Reassessment: Patient appears in no apparent distress at this time. Patient and/or zb family updated on plan of care and expected duration. Pain level reassessed. Patient is alert, oriented x 3, equal unlabored respirations, skin warm/dry/pink. ECP at bedside discussing care with patient. remains at bedside. 19:24 Reassessment: ECP at bedside. zb 20:50 Reassessment: Patient appears in no apparent distress at this time. Patient and/or zb family updated on plan of care and expected duration. Pain level reassessed. Patient is alert, oriented x 3, equal unlabored respirations, skin warm/dry/pink. 22:03 Reassessment: Patient appears in no apparent distress at this time. Patient and/or zb family updated on plan of care and expected duration. Pain level reassessed. Patient is alert, oriented x 3, equal unlabored respirations, skin warm/dry/pink. Vital Signs: 16:36 BP 151 / 90; Pulse 85; Resp 18 S; Temp 97.8(TE); Pulse Ox 99% on R/A; Weight 90.72 kg ca1 (R); Height 5 ft. 11 in. (180.34 cm) (R); Pain 0/10; 17:15 BP 125 / 71; Pulse 86; Resp 16; Pulse Ox 96% on R/A; zb 18:00 BP 118 / 65; Pulse 73; Resp 16; Pulse Ox 98% on R/A; zb 19:10 BP 104 / 75; Pulse 76; Resp 16; Pulse Ox 95% on R/A; zb 20:50 BP 123 / 83; Pulse 68; Resp 16; Pulse Ox 99% on R/A; zb 22:04 BP 116 / 65; Pulse 67; Resp 16; Pulse Ox 98% on R/A; zb 16:36 Body Mass Index 27.89 (90.72 kg, 180.34 cm) ca1 ED Course: 16:24 Patient arrived in ED. rg4 16:37 Abelino Hidalgo NP is [facility]. pm1 16:37 Isak Linares MD is Attending Physician. pm1 16:45 Triage completed. ca1 16:47 Arm band placed on right wrist. ca1 16:50 EKG done, by technical intern. reviewed by Abelino Hidalgo NP. zb 16:52 Inserted saline lock: 20 gauge in right antecubital area, using aseptic technique. ll1 Blood collected. 17:02 Enedelia Cano RN is Primary Nurse. zb 17:05 Patient has correct armband on for positive identification. Placed in gown. Bed in low zb position. Call light in reach. Adult w/ patient. conveyor monitor on. Pulse ox on. NIBP on. Door closed. Noise minimized. Warm blanket given. 17:05 Inserted saline lock: 20 gauge in left forearm, using aseptic technique. zb 17:05 Patient maintains SpO2 saturation greater than 95% on room air. zb 17:29 XRAY Chest (1 view) In Process Unspecified. EDMS 21:08 Repeat lab(s) drawn. by me, sent to lab. zb 22:13 No provider procedures requiring assistance completed. IV discontinued, intact, zb bleeding controlled, No redness/swelling at site. Pressure dressing applied. Administered Medications: 17:18 Drug: Zofran (Ondansetron) 4 mg Route: IVP; Site: right antecubital; zb 18:48 Follow up: Response: No adverse reaction; Marked relief of symptoms; Nausea is decreasedzb Outcome: 18:45 Discharge ordered by . pm1 22:06 Discharge ordered by . ma2 22:14 Discharged to home ambulatory, with family. zb 22:14 Condition: stable 22:14 Discharge instructions given to patient, family, Instructed on discharge instructions, follow up and referral plans. Demonstrated understanding of instructions, follow-up care. 22:14 Patient left the ED. zb Signatures: Dispatcher [employer] EDMS Abelino Hidalgo NP [employer] MACHINE OPERATOR pm1 Liz Wright rg4 Tracy Springer MD MD ma2 Shirley Quintanilla RN RN ca1 Alley Bustillos RN RN ll1 Enedelia Cano RN RN zb Corrections: (The following items were deleted from the chart) 18:26 17:18 Reassessment: ECP notified of patient nausea. zb zb 19:10 18:25 Reassessment: Patient appears in no apparent distress at this time. Patient zb and/or family updated on plan of care and expected duration. Pain level reassessed. Patient is alert, oriented x 3, equal unlabored respirations, skin warm/dry/pink. ECP at bedside discussing care. zb
--- NOTE | 2020-12-16 18:46 | EDPHYS ---
Physician Documentation [facility] Name: Tim Hair Age: 70 yrs Sex: Male : 1950 Arrival Date: 12/16/2020 Time: 16:24 Bed 26 Private MD: ED Physician Isak Linares HPI: 12/16 16:44 This 70 yrs old Male presents to ER via Wheelchair with complaints of Chest pm1 Pain. 16:44 The patient or guardian reports chest pain that is located primarily in the mid-sternal pm1 area. Onset: 2 day(s) ago. The pain does not radiate. Associated signs and symptoms: Pertinent positives: shortness of breath, generalized weakness. The chest pain is described as aching. Duration: The patient or guardian reports multiple episodes, that have now resolved. Modifying factors: The symptoms are alleviated by nothing. the symptoms are aggravated by nothing. Severity of pain: in the emergency department the pain has resolved. The patient has experienced similar episodes in the past, a few times. The patient has not recently seen a physician, the patient's primary care provider is Dr. Davis, has an appointment scheduled, in 2 day(s). Historical: - Allergies: 16:47 Ibuprofen; ca1 16:47 Mobic; ca1 16:47 Nalfon; ca1 16:47 PENICILLINS; ca1 - Home Meds: 16:47 atorvastatin oral oral [Active]; Metformin Oral [Active]; tamsulosin 0.4 mg Oral cp24 1 ca1 cap once daily [Active]; losartan oral oral [Active]; Farxiga oral oral [Active]; - PMHx: 16:47 Diabetes - NIDDM; High Cholesterol; Hypertension; ca1 - Immunization history:: Client reports receiving the 2nd dose of the Covid vaccine, Client reports receiving the 1st dose of the Covid vaccine, Pneumococcal vaccine is up to date. - Social history:: Smoking status: Patient denies any tobacco usage or history of. ROS: 16:44 Eyes: Negative for injury, pain, redness, and discharge, ENT: Negative for injury, pm1 pain, and discharge, Neck: Negative for injury, pain, and swelling. 16:44 Abdomen/GI: Negative for abdominal pain, nausea, vomiting, diarrhea, and constipation, Back: Negative for injury and pain, : Negative for injury, bleeding, discharge, and swelling, MS/Extremity: Negative for injury and deformity, Skin: Negative for injury, rash, and discoloration. 16:44 Constitutional: Positive for fatigue, Negative for fever, poor PO intake. 16:44 Cardiovascular: Positive for chest pain, Negative for edema, palpitations. 16:44 Respiratory: Positive for shortness of breath, Negative for cough. 16:44 Neuro: Positive for dizziness, headache, numbness, tingling. Exam: 16:55 Constitutional: This is a well developed, well nourished patient who is awake, alert, pm1 and in no acute distress. Head/Face: Normocephalic, atraumatic. 16:55 Neck: Trachea midline, no thyromegaly or masses palpated, and no cervical lymphadenopathy. Supple, full range of motion without nuchal rigidity, or vertebral point tenderness. No Meningismus. Chest/axilla: Normal chest wall appearance and motion. Nontender with no deformity. No lesions are appreciated. 16:55 Skin: Warm, dry with normal turgor. Normal color with no rashes, no lesions, and no evidence of cellulitis. MS/ Extremity: Pulses equal, no cyanosis. Neurovascular intact. Full, normal range of motion. 16:55 Eyes: Exam is negative for Periorbital structures: appear normal, Pupils: no acute changes, Extraocular movements: intact throughout, Sclera: no appreciated abnormality, no acute changes, icterus, is not appreciated. 16:55 ENT: Mouth: is normal, Lips: normal, Oral mucosa: normal, pink and intact, moist. 16:55 Cardiovascular: Rate: normal, Rhythm: regular, Pulses: no pulse deficits are appreciated, Edema: is not appreciated. 16:55 Respiratory: the patient does not display signs of respiratory distress, Respirations: normal, Breath sounds: are clear throughout. 16:55 Abdomen/GI: Inspection: abdomen appears normal, Palpation: abdomen is soft and non-tender, in all quadrants. 16:55 Neuro: Exam negative for acute changes, Orientation: is normal, Mentation: is normal, Motor: is normal, moves all fours. Vital Signs: 16:36 BP 151 / 90; Pulse 85; Resp 18 S; Temp 97.8(TE); Pulse Ox 99% on R/A; Weight 90.72 kg ca1 (R); Height 5 ft. 11 in. (180.34 cm) (R); Pain 0/10; 17:15 BP 125 / 71; Pulse 86; Resp 16; Pulse Ox 96% on R/A; zb 18:00 BP 118 / 65; Pulse 73; Resp 16; Pulse Ox 98% on R/A; zb 19:10 BP 104 / 75; Pulse 76; Resp 16; Pulse Ox 95% on R/A; zb 20:50 BP 123 / 83; Pulse 68; Resp 16; Pulse Ox 99% on R/A; zb 22:04 BP 116 / 65; Pulse 67; Resp 16; Pulse Ox 98% on R/A; zb 16:36 Body Mass Index 27.89 (90.72 kg, 180.34 cm) ca1 MDM: 16:39 Patient medically screened. pm1 18:17 ED course: PE Clinical probability score = 0. pm1 18:43 Data reviewed: vital signs. Data interpreted: Pulse oximetry: on room air is 99 %. pm1 Interpretation: normal. Counseling: I had a detailed discussion with the patient and/or guardian regarding: the historical points, exam findings, and any diagnostic results supporting the discharge/admit diagnosis, lab results, radiology results, the need for outpatient follow up. 19:34 Physician consultation: Paul Davis MD was called at 19:34, was contacted at 19:34, pm1 regarding admission, patient's condition, Would like me to consult with Dr. Gotti to determine if he would like the patient admitted . 20:15 Physician consultation: Miguel Bell MD was called at 19:35, was contacted at 20:15, pm1 regarding consult, patient's condition, and will see patient in office, tomorrow or . 20:17 ED course: Will perform 4 hour repeat troponin since patient is not being admitted pm1 after consultation with Dr. Davis and Arabella. 12/16 16:43 Order name: Basic Metabolic Panel; Complete Time: 17:40 pm1 12/16 16:43 Order name: CBC with Diff; Complete Time: 17:14 pm1 12/16 16:43 Order name: LFT's; Complete Time: 17:40 pm1 12/16 16:43 Order name: Magnesium; Complete Time: 17:40 pm1 12/16 16:43 Order name: NT PRO-BNP; Complete Time: 17:40 pm1 12/16 16:43 Order name: PT-INR; Complete Time: 17:14 pm1 12/16 16:43 Order name: Troponin (emerg Dept Use Only); Complete Time: 17:40 pm1 12/16 16:43 Order name: XRAY Chest (1 view); Complete Time: 17:56 pm1 12/16 16:43 Order name: EKG; Complete Time: 16:44 pm1 12/16 18:12 Order name: COVID-19/FLU A+B; Complete Time: 18:15 EDOR 12/16 20:18 Order name: Troponin (emerg Dept Use Only): Draw at 2100 pm1 12/16 16:43 Order name: Cardiac monitoring; Complete Time: 17:06 pm1 12/16 16:43 Order name: EKG - Nurse/Tech; Complete Time: 17:06 pm1 12/16 16:43 Order name: IV Saline Lock; Complete Time: 17:06 pm1 12/16 16:43 Order name: Labs collected and sent; Complete Time: 17:06 pm1 12/16 16:43 Order name: O2 Per Protocol; Complete Time: 17:06 pm1 12/16 16:43 Order name: O2 Sat Monitoring; Complete Time: 17:06 pm1 EC:55 Rate is 77 beats/min. No Q waves. T waves are Normal. No ST changes noted. Clinical pm1 impression: Sinus rhtyhm with marked sinus arrhythmia, Otherwise normal ECG. Administered Medications: 17:18 Drug: Zofran (Ondansetron) 4 mg Route: IVP; Site: right antecubital; zb 18:48 Follow up: Response: No adverse reaction; Marked relief of symptoms; Nausea is decreasedzb Disposition: 12/16/20 22:06 Discharged to Home. Impression: Chest pain, unspecified. - Condition is Stable. - Discharge Instructions: Nonspecific Chest Pain. - Medication Reconciliation Form, Thank You Letter, Antibiotic Education, Prescription Opioid Use form. - Follow up: Private Physician; When: Tomorrow; Reason: Continuance of care. Addendum: 12/22/2020 07:59 Co-signature as Attending Physician, Isak Linares MD. r n Signatures: Dispatcher [employer] EDMS LinaresIsak trotter MD MD rn Marinas, Patrick, SCRAP PICKER SCRAP PICKER pm1 Tracy Springer MD MD ma2 Shirley Quintanilla RN RN ca1 Brown, Zipporah, RN RN zb Corrections: (The following items were deleted from the chart) 12/16 17:32 16:44 CORONAVIRUS+MR.LAB.BRZ ordered. EDMS EDMS 17:33 16:45 Influenza Screen (A \T\ B)+BA.LAB.BRZ ordered. EDOR EDMS 19:01 18:45 12/16/2020 18:45 Discharged to Home. Impression: Chest pain, unspecified. pm1 Condition is Stable. Forms are Medication Reconciliation Form, Thank You Letter, Antibiotic Education, Prescription Opioid Use. Follow up: Emergency Department; When: As needed; Reason: Worsening of condition. Follow up: Private Physician; When: 2 - 3 days; Reason: Recheck today's complaints, Continuance of care, Re-evaluation by your physician. Problem is new. Symptoms have improved. pm1 22:14 22:06 12/16/2020 22:06 Discharged to Home. Impression: Chest pain, unspecified. zb Condition is Stable. Forms are Medication Reconciliation Form, Thank You Letter, Antibiotic Education, Prescription Opioid Use. Follow up: Private Physician; When: Tomorrow; Reason: Continuance of care. ma2
[2020-12-16 23:14] VITALS: TEMP 97.8
[2020-12-16 23:22] VITALS: BP 116/65; O2SAT 98
--- NOTE | 2020-12-17 11:59 | EKG ---
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
== END 2020-12-16 22:14 | disposition home or self-care (01) ==
LOC: ER 16:21
DX: R07.9 Chest pain, unspecified (principal); E11.9 Type 2 diabetes mellitus without complications; E78.00 Pure hypercholesterolemia, unspecified; I10 Essential (primary) hypertension; Z88.0 Allergy status to penicillin; Z88.5 Allergy status to narcotic agent; Z88.6 Allergy status to analgesic agent; Z88.8 Allergy status to other drugs, medicaments and biological substances; Z20.822 Contact with and (suspected) exposure to COVID-19
CPT/HCPCS: 93005; 85025; 80048; 36415; 83735; 85610; 80076; 84484 ×2; 83880; 0240U; 71045; 96374; 99285; J2405

== ENCOUNTER 2020-12-18 11:58 | Observation (INO) | payer OTHER ==
--- OUTSIDE RECORDS SUMMARY | 2020-12-18 12:36 | XMS REPORT | Continuity of Care Document ---
:1950 Author Organization [facility] t Address [address] [place] [address] Care Team Providers Name Role Phone Drake [...] St disease disease 0-17 [facility] - 00:00: [address] Diabetes Problem Resolve 2020-12-12 Me moria mellitus d 21:28:53 l (disorder) Diabetes He rmann mellitus (disorder) Resolved Problem 12/12/2020 [facility] Group Hyperchole Problem Resolve 2020-12-12 Memoria sterolemia d 21:28:53 l (disorder) Nick n Hyperchole sterolemia (disorder) Resolved Problem 12/12/2020 Medical Group Hypertensi Problem Resolve 2020-12-12 Memoria ve d 21:28:53 l disorder, [place] systemic Hypertensi arterial ve (disorder) disorder, systemic [...] Outpati ent Clinics Nocturia Nocturia Diagnosis Active [facility] [...] 00:00: Medical reaction 00 Center s penicill penicill Active Memori a ins ins l [place] Mobic Mobic Active [facility]oria l [place] Malathio Malathio Active Memori a n n l [place] penicill Adverse Active Info Not [facility] Mobic Adverse Active Info Not [facility] Reaction Available [facility] Social History Social Habit Start Date Stop Date Quantity Comments Source Sex Assigned At [facility] Tobacco use and 2018-05-10 2018-05-10 Never used [facility] - exposure 00:00:00 00:00:00 [facility] Alcohol intake 2018-05-10 2018-05-10 Current drinker [facility] S t [facility] - 00:00:00 00:00:00 of alcohol [facility] (finding) Alcohol Comment 2018-05-02 2018-05-02 rarely [facility] - 00:00:00 00:00:00 [facility] Center Smoking Status Start Date Stop Date Source Never smoker [facility] Medications Ordered Filled Start Stop Current Ordering Indication Dosage Frequency Signature Comments Components Source Medication Medication Date Date Medication? 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, Weight Sulfamethox 2019-07 Yes 1 tab, PO, Memoria azole 800 2-30 BID, X 10 l MG / 14:56: day, # 20 [place] Trimethopri 00 tab, 0 m 160 MG Refill(s), Oral Tablet Pharmacy: [Bactrim] [facility] 149, 180.34, cm, 07/23/20 8:43:00 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, Height, 89.545, kg, 07/23/20 8:43:00 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, Weight Farxiga 2019-07 Yes PO, Daily, Reginald daniella 2-30 0 l 14:51: Refill(s) [place] 00 tadalafil 2019-07 Yes 10 mg = 1 Mem oria 10 MG Oral 0-07 tab, PO, l Tablet 15:43: Daily, PRN Meagan nn [Cialis] 00 for erectile dysfunctio n, # 10 tab, 1 Refill(s), Pharmacy: [facility] 149, 180.34, cm, 04/30/20 10:00:00 CDT, Height, 90.455, kg, 04/30/20 10:00:00 CDT, Weight tamsulosin 2019-07 Yes 0.4 mg = 1 M emoria 0.4 mg oral 0-07 cap, PO, l capsule 15:43: Daily, # Nick n 00 30 cap, 0 Refill(s), Pharmacy: [facility] 149, 180.34, cm, 04/30/20 10:00:00 CDT, Height, 90.455, kg, 04/30/20 10:00:00 CDT, Weight glimepiride 2019-07 Yes 0 Memori a 4 mg oral 0-07 Refill(s) l tablet 15:08: losartan 50 2019-07 Yes 0 Memori a mg oral 0-07 Refill(s) l tablet 15:08: Metformin 2019-07 Yes 0 Memoria hydrochlori 0-07 Refill(s) l de 1000 MG 15:08: [place] Oral Tablet 00 ATORVASTATI 2019-07 Yes ATORVASTAT Memoria N TAB 40MG 0-07 IN TAB l 15:08: 40MG, Refill(s) 0 tamsulosin 2019-07 Yes 0 Memoria 0.4 mg oral 0-07 Refill(s) l capsule 15:08: verapamil 2017-07 Yes 120mg QD Take [address] [facility] (CALAN-SR) 0-17 mg by [facility] - 120 MG ER 14:33: mouth Medical tablet 30 daily. [place] SITagliptin 2017-07 Yes 100mg QD Take [address] (JANUVIA) 0-17 mg by [facility] - 100 MG 14:33: mouth Medical tablet 30 daily. [place] glipiZIDE 2017-07 Yes 5mg QD Take [address] (GLUCOTROL) 0-17 by mouth Luke s - 5 MG tablet 14:33: daily. [facility] jax 30 [place] simvastatin 2017-07 Yes 20mg QD Take [address] (ZOCOR) 20 0-17 by mouth [facility] - MG tablet 14:33: nightly. [facility] jax 30 [place] metFORMIN 2017-07 Yes 500mg Take 500 [facility] [...] Simvastatin Yes Gloria [address] [facility] [place] in the [facility] - evening [facility] l Outpati ent Clinics Ernesto Orozco Yes Gloria [address] [facility] [place] [facility] Verapamil Verapamil Yes Gloria [address] HCl HCl [facility] Tamsulosin Tamsulosin Yes Gloria [address] HCl HCl [facility] Vital Signs Vital Name Observation Time Observation Value Comments Source Height 2020-11-03 14:30:00 180.34 cm [facility] [place] Weight 2020-11-03 14:30:00 [facility] [place] BMI Calculated 2020-11-03 14:30:00 Mem[facility] al [place] Height 2020-08-18 16:22:00 180.34 cm [facility] [place] Weight 2020-08-18 16:22:00 [facility] [place] BMI Calculated 2020-08-18 16:22:00 Memori al [place] Height 2020-07-23 14:43:00 180.34 cm [facility] [place] Weight 2020-07-23 14:43:00 [facility] [place] BMI Calculated 2020-07-23 14:43:00 Memori al [place] Systolic (mm Hg) 2020-04-30 15:00:00 Reginald rial [place] Diastolic (mm Hg) 2020-04-30 15:00:00 Mem orial [place] Heart Rate 2020-04-30 15:00:00 [facility] [place] Height 2020-04-30 15:00:00 180.34 cm [facility] [place] Weight 2020-04-30 15:00:00 [facility] [place] BMI Calculated 2020-04-30 15:00:00 Memori al [place] Procedures Procedure Date / Time Performed Performing Clinician Sourc e Knee reoperations [facility] Plan of Care Planned Activity Planned Date Details Comments Source Future Scheduled 2020-03-25 INFLUENZA VACCINE (#1) [facility] 00:00:00 [code = INFLUENZA Medical Ce nter VACCINE (#1)] Future Scheduled 2014 PNEUMOCOCCAL 65+ YRS [facility] - Test 00:00:00 (1 of 1 - Medical Center [id number] PCV13) [code = PNEUMOCOCCAL 65+ YRS (1 of 1 - [id number] PCV13)] Future Scheduled 2005-01-[address] [facility] - Test 00:00:00 WELLNESS (YEAR 2 or Medical Center FIRST YEAR if no IPPE) [code = MEDICARE ANNUAL WELLNESS (YEAR 2 or FIRST YEAR if no IPPE)] Future Scheduled [address] [facility] - Test 00:00:00 malignant neoplasm of Medica l Center colon (procedure) [code = 245333170] Encounters Start End Encounter Admission Attending Care Care Encounter Source Date/Time Date/Time Type Type Clinicians Facility Department ID 2020-12-10 2020-12-10 Outpatient VISIT, MG MG [id number] 09:30:00 09:30:00 NURSE UATS 07 2020-11-26 2020-11-27 Outpatient [facility] [id number] 11:24:11 11:24:11 00 2020-11-24 2020-11-24 Outpatient Staller, MG [facility] [id number] 14:30:00 14:30:00 Elisa L 06 2020-11-03 2020-11-03 Outpatient Staller, [facility] [id number] 09:00:00 23:59:59 Elisa L 05 2020-09-15 2020-09-15 Outpatient Staller, MG [facility] [id number] 09:00:00 09:00:00 Elisa L 04 2020-08-18 2020-08-18 Outpatient Staller, [facility] [id number] 10:00:00 23:59:59 Elisa L 03 2020-07-30 2020-07-30 Outpatient Staller, [facility] [id number] 08:30:00 08:30:00 Elisa L 01 2020-07-23 2020-07-23 Outpatient Staller, [facility] [id number] 08:45:00 23:59:59 Elisa L 2020-05-17 2020-05-17 BARBIE Johnson [id number] 00:00:00 00:00:00 (Out) Bruno OLIVEROS [id number] [facility] [id number] 2020-05-16 2020-05-16 Laboratory Lab, [facility] [id number] 09:54:35 10:14:35 Only Fam [facility] [id number] [place] [id number] Professio [phone] nal 044 [address] One 2020-05-16 2020-05-16 Letter Doctor BARBIE [id number] 00:00:00 00:00:00 (Out) Unassigned, DOMO [id number] [facility] [id number] 2020-04-30 2020-04-30 Outpatient Cheryl [facility] [id number] 09:40:00 23:59:59 Elisa Ortega 00 2020-02-21 2020-02-21 Telephone Gladys, [place] [id number] 00:00:00 00:00:00 Ann BANKSWO [id number] [place] [id number] PEDIATRIC [id number] AND ADULT [facility] 2020-02-20 2020-02-20 Laboratory Lab, [facility] [id number] 09:19:12 09:39:12 Only Fam Pob I Health [id number] [place] [id number] Professio [phone] nal 044 [address] One 2020-02-20 2020-02-20 Letter Doctor BARBIE [id number] 00:00:00 00:00:00 (Out) Unassigned, DOMO [id number] [facility] [id number] 2020-02-20 2020-02-20 Orders Doctor BARBIE [id number] 00:00:00 00:00:00 Only Unassigned, DOMO [id number] [facility] [id number] 2020-02-18 2020-02-18 Telephone [facility], [place] [id number] 00:00:00 00:00:00 Patient Health [id number] Does Not [place] [id number] Have A Professio [phone] nal 044 Office Building One 2019-11-08 2019-11-08 [facility] [id number] 09:30:00 09:30:00 t Specialty/U Ruth kes - Specialty rology Memori a /Urology Clinic l Clinic Outpati ent Clinics 2019-10-11 2019-10-11 Outpatient Lobito Lockwood [id number] 14:45:00 14:45:00 t Specialty/U [facility] - Specialty rology Memori a [facility] 2019-09-28 2019-09-28 Outpatient Lobito Silvaiant [id number] 10:45:00 10:45:00 t Specialty/U [facility]es - Specialty rology Memori a [facility] 2018-02-02 2018-02-02 Outpatient Lobito Robint [id number] 11:30:00 11:30:00 t Specialty/U [facility] kes - Specialty rology Memori a [facility] Results Test Description Test Time Test Comments Results Result Comments Source SPECIAL CHEMISTRY 2020-08-07 6.3 Quinn Taylor 14:21:00 CBC W/PLT COUNT & AUTO [...] code 0 % 0-1 = 2801) POCT-GLUCOSE [id number] 10:40:00 Test Item Value Reference Range Interpretation Comments POC-GLUCOSE METER 138 mg/dL 70-110 H TESTED AT [facility] 6720 (BEAKER) (test code = [place] 1538) [address] [id number] 13:26:00 Test Item Value Reference Range Interpretation Comments SODIUM (BEAKER) (test 136 meq/L 136-145 code = 381) POTASSIUM (BEAKER) 3.9 meq/L 3.5-5.1 Specimen slightly (test code = 379) hemolyzed CHLORIDE (BEAKER) 104 meq/L 98-107 (test code = 382) CO2 (BEAKER) (test 22 meq/L 22-29 code = 355) [id number] 13:26:00 Test Item Value Reference Range Interpretation Comments GLUCOSE RANDOM (BEAKER) (test code 258 mg/dL 70-105 H = 652) BUN AND [id number] 13:26:00 Test Item Value Reference Range Interpretation [...] S NOT APPLICABLE FOR DIALYSIS PATIHOWARD TS. [id number] 11:35:00 Test Item Value Reference Range Interpretation Comments HEMOGLOBIN (BEAKER) (test code = 15.4 GM/DL 13.7-17.5 410)
--- NOTE | 2020-12-18 13:59 | RAD REPORT ---
EXAM DESCRIPTION: CT - Chest For Pe Angio - 12/18/2020 1:35 pm CLINICAL HISTORY: rule out pe COMPARISON: Chest Single View dated 12/16/2020 TECHNIQUE: Dynamically enhanced 3 mm thick images of the chest were obtained during administration o f approximately 150mL Isovue 370 IV contrast. Coronal and oblique MIP reconstruction images were gene rated and reviewed. Exam utilizes a protocol to evaluate the pulmonary arterial tree. All CT scans are performed using dose optimization technique as appropriate and may include automated exposure control or mA/KV adjustment according to patient size. FINDINGS: No pulmonary emboli are identified. The aorta as imaged shows no acute or suspicious finding. No pericardial thickening or effusion. No focal mass consolidation. Minimal dependent atelectasis seen in each posterior lung field. Interst itial pattern does appear mildly prominent. A mild edema or infiltrate would be possible. No pleural effusion or pleural thickening. No mediastinal or hilar suspicious masses. No chest wall masses or abnormal axillary lymphadenopathy. IMPRESSION: No pulmonary emboli identified. Mildly prominent interstitial pattern could indicate a mild edema or infiltrate.
[2020-12-18] MEDS ORDERED: ACETAMINOPHEN 325 MG TABLET PO PRN (14:00)
[2020-12-18] MEDS ORDERED: ONDANSETRON 4 MG (ODT) TAB PO PRN (14:00)
[2020-12-18] MEDS ORDERED: D50W 25 GM/50 ML SYRINGE IV PRN (14:00)
[2020-12-18] MEDS ORDERED: LOPERAMIDE HCL 2 MG CAPSULE PO PRN (14:00)
[2020-12-18] MEDS ORDERED: POLYETHYL GLY 3350 17 GM/DOSE PO PRN (14:00)
[2020-12-18] MEDS ORDERED: ONDANSETRON 4 MG/2 ML VIAL IV PRN (14:00)
[2020-12-18] MEDS ORDERED: NACHLORIDE 0.45% 1,000 ML IV SCH (14:00)
[2020-12-18] MEDS ORDERED: GLUCAGON 1 MG/VIAL IM PRN (14:00)
[2020-12-18] MEDS ORDERED: DIPHENHYDRAMINE 25 MG TAB/CAP PO PRN (14:00)
[2020-12-18 14:15] LABS: Absolute Lymphocytes (CBC) 2.1 K/uL (0.7-4.9); Basophils % 0.7 % (0-1.3); Hematocrit 43.9 % (39.6-49.0); Lymphocytes % 34.2 % (15.3-44.8); MPV 7.8 fL (7.6-11.3); RBC Red Blood Cell Count 4.67 M/uL (4.33-5.43)
[2020-12-18 14:19] LABS: Protime INR 1.05
[2020-12-18 14:50] VITALS: BMI 27.0
[2020-12-18 15:50] LABS: ALT/SGPT 29 U/L (12-78); AST/SGOT 18 U/L (15-37); Albumin 3.5 g/dL (3.4-5.0); Alkaline Phosphatase 91 U/L (45-117); BUN Blood Urea Nitrogen 20 mg/dL (7-18); Bicarbonate 27 mmol/L (21-32); Bilirubin Direct 0.2 mg/dL (0-0.2); Bilirubin Total 0.6 mg/dL (0.2-1.0); Glucose Level 119 mg/dL (74-106); Magnesium 2.1 mg/dL (1.8-2.4); Phosphorus 3.2 mg/dL (2.5-4.9); Potassium 3.9 mmol/L (3.5-5.1); Protein, Total 6.7 g/dL (6.4-8.2); Sodium Level 138 mmol/L (136-145); Thyroid Stimulating Hormone 0.677 uIU/mL (0.360-3.740)
[2020-12-18 16:06] LABS: C-Reactive Protein < 2.90 mg/L (<3.00)
[2020-12-18 16:19] LABS: Urine Appearance CLEAR (Clear); Urine Bilirubin NEGATIVE (Negative); Urine Blood NEGATIVE (Negative); Urine Color YELLOW (Yellow); Urine Glucose 3+ (Negative); Urine Protein NEGATIVE (Negative); Urine Specific Gravity >=1.030 (1.005-1.030); Urine Urobilinogen 0.2 mg/dL (0.2-1.0)
[2020-12-18 16:21] LABS: Urine Microscopic Reflex NO UMIC
[2020-12-18] MEDS: INSULIN -REGULAR HUMAN 50 UNIT/0.5 ML ML SQ SCH ×2 (16:30→20:43)
[2020-12-18] MEDS: ENOXAPARIN 100 MG/ML SYR SQ SCH ×2 (17:09→20:42)
[2020-12-19 05:54] LABS: Absolute Lymphocytes (CBC) 2.6 K/uL (0.7-4.9); Hematocrit 41.9 % (39.6-49.0); Lymphocytes % 40.8 % (15.3-44.8); MPV 7.9 fL (7.6-11.3); RBC Red Blood Cell Count 4.51 M/uL (4.33-5.43)
[2020-12-19 06:08] LABS: BUN Blood Urea Nitrogen 15 mg/dL (7-18); Bicarbonate 24 mmol/L (21-32); Glucose Level 95 mg/dL (74-106); Magnesium 2.1 mg/dL (1.8-2.4); Potassium 3.7 mmol/L (3.5-5.1); Sodium Level 140 mmol/L (136-145)
[2020-12-19] MEDS ORDERED: TRAMADOL HCL 50 MG TAB PO PRN (06:23)
[2020-12-19 06:42] LABS: CKMB Creatine Kinase MB < 1.0 ng/mL (0.3-3.6); Creatine Phosphokinase 78 U/L (39-308); Troponin I < 0.02 ng/mL (0.0-0.045)
[2020-12-19] MEDS: INSULIN -REGULAR HUMAN 50 UNIT/0.5 ML ML SQ SCH ×2 (07:30→10:03)
--- NOTE | 2020-12-19 07:51 | EKG ---
Test Date: 2020-12-19 Test Time: 06:16:37 Optometrist Owner: RT Christian MEASUREMENT RESULTS: Intervals: Rate: 63 UT: 170 QRSD: 114 QT: 412 QTc: 421 [place]: P: 49 UT: 170 QRS: 29 T: 25 INTERPRETIVE STATEMENTS: Sinus rhythm with premature atrial complexes Otherwise normal ECG Compared to ECG 12/16/2020 16:55:21 Atrial premature complex(es) now present Sinus arrhythmia no longer present Electronically Signed On 12-19-20 07:51:24 CDT by Miguel Bell
[2020-12-19] MEDS ORDERED: METFORMIN HCL 500 MG TAB PO SCH (08:00)
--- NOTE | 2020-12-19 08:12 | ECHO ---
HEIGHT: 5 ft 11 in WEIGHT: 194 lb 0 oz DATE OF STUDY: 12/18/[address]: Paul Davis MD 2-DIMENSIONAL: YES M.MODE: YES DOPPLER: YES COLOR FLOW: YES TDS: NO PORTABLE: NO DEFINITY: NO BUBBLE STUDY: NO DIAGNOSIS: DYSPNEA CARDIAC HISTORY: CATHERIZATION: SURGERY: PROSTHETIC VALVE: PACEMAKER: MEASUREMENTS (cm) DIASTOLIC (NORMALS) SYSTOLIC (NORMALS) IVSd 1.1 (0.6-1.2) LA Diam 3.3 (1.9-4.0) LVEF 55% LVIDd 2.9 (3.5-5.7) LVIDs 2.1 (2.0-3.5) %FS 27% LVPWd 1.0 (0.6-1.2) Ao Diam 3.5 (2.0-3.7) 2 DIMENSIONAL ASSESSMENT: RIGHT ATRIUM: NORMAL LEFT ATRIUM: NORMAL RIGHT VENTRICLE: NORMAL LEFT VENTRICLE: NORMAL TRICUSPID VALVE: MITRAL VALVE: PULMONIC VALVE: AORTIC VALVE: NORMAL PERICARDIAL EFFUSION: NONE AORTIC ROOT: NORMAL LEFT VENTRICULAR WALL MOTION: NORMAL DOPPLER/COLOR FLOW: MILD PULMONARY, MITRAL AND TRICUSPID REGURGITATION. COMMENTS: MILD PULMONARY, MITRAL AND TRICUSPID REGURGITATION. NORMAL LEFT VENTRICULAR EJECTION FRACTION 55-60%. NORMAL WALL MOTION. NORMAL DIASTOLIC FUNCTION. TECHNOLOGIST: Rajni CELESTE
[2020-12-19] MEDS: ENOXAPARIN 100 MG/ML SYR SQ SCH (08:33)
[2020-12-19] MEDS ORDERED: ATORVASTATIN 40 MG TAB PO SCH (09:00)
[2020-12-19] MEDS ORDERED: LOSARTAN POTASSIUM 50 MG TABLET PO SCH (09:00)
[2020-12-19] MEDS ORDERED: TAMSULOSIN 0.4 MG SR CAP PO SCH (09:00)
[2020-12-19] MEDS ORDERED: SEMAGLUTIDE 3 MG PO SCH (09:00)
[2020-12-19] MEDS ORDERED: KCL 20 MEQ/100 mL IVPB 20 MEQ/100 ML BAG IV SCH (09:00)
[2020-12-19] MEDS ORDERED: ASPIRIN 81 MG CHEWABLE TABLET PO SCH (09:00)
--- NOTE | 2020-12-19 09:13 | RAD REPORT ---
EXAM DESCRIPTION: RAD - Chest Single View - 12/19/2020 8:45 am CLINICAL HISTORY: left heart cath Chest pain. COMPARISON: Chest Single View dated 12/16/2020; Chest Single View dated 05/19/2018; Chest Pa And Lat (2 Views) dated 09/17/2016; CHEST PA AND LAT 2 VIEW dated 05/10/2012 FINDINGS: Portable technique limits examination quality. The lungs are grossly clear. The heart is normal in size. No displaced fractures. IMPRESSION: No acute intrathoracic process suspected.
[2020-12-19] MEDS ORDERED: MIDAZOLAM HCL 2 MG/2 ML INJ ONE (10:48)
[2020-12-19] MEDS ORDERED: FENTANYL CITR 100 MCG/2 ML ONE (10:48)
[2020-12-19] MEDS ORDERED: NA CHLORIDE 0.9% 0 ML ONE (10:48)
[2020-12-19] MEDS ORDERED: ATROPINE SULF 1 MG/10 ML SYR IV ONE (10:48)
[2020-12-19] MEDS ORDERED: HEPA 1000U/500MLS 1,000 UNIT/500 ML BAG IV ONE (10:48)
[2020-12-19] MEDS ORDERED: NA CHLORIDE 0.9% 500 ML ONE (11:38)
--- NOTE | 2020-12-19 12:08 | OP ---
Surgeon: Miguel Bell MD Application Development Intern: James Tony. Angiography in the groin was normal. Angio-Seal was used to close the case. The patient can go home in the next 2 hours if it is okay with Dr. Davis and I will see him in the office in 2 weeks. Indication And Procedure In Detail: Admitted to Dr. Davis's service for unstable angina on , brought to the cath lab nurse today, 12/19/2020 for a heart catheterization and selective coronary arter iogram. The patient was draped and prepped in the routine sterile fashion. Given Versed and fentany l for sedation. Using the Seldinger technique and 10 mL Xylocaine, 6-Maltese sheath was introduced in the right common femoral artery successfully. Jason catheters left and right were used to cannula te the left main and right main respectively. His RCA was very small, nondominant, free of disease. The circumflex was very large, dominant, free of disease. LAD was normal. The patient tolerated th e procedure well. There were no complications. Blood Loss: 5 mL. Anesthesia: Total conscious sedation 45 minutes. Final Diagnosis: Chest pain with normal heart catheterization, normal coronaries. Plan: To continue medical therapy. FLOYD/MEAGAN Voice ID: [id number] Report ID: [id number]
[2020-12-19] MEDS ORDERED: D50W 25 GM/50 ML VIAL IV PRN (15:00)
[2020-12-19 16:22] VITALS: O2SAT 98
--- NOTE | 2020-12-19 16:25 | RAD REPORT ---
EXAM DESCRIPTION: US - Abdomen Exam Complete - 12/19/2020 4:02 pm CLINICAL HISTORY: Abdominal pain COMPARISON: none FINDINGS: The liver has a normal echotexture. A gallstone is not seen. The gallbladder wall is not thickened. The biliary tree is normal caliber. The pancreas is not well seen secondary to overlying bowel gas but appears grossly normal. The right kidney measures 10 centimeters with a normal echotexture. The left kidney measures 11 centimeters with a normal echotexture. The spleen measures 11 centimeters. Poor evaluation of the IVC and abdominal aorta secondary to overlying bowel gas IMPRESSION: No gross abnormality displayed
--- NOTE | 2020-12-19 16:45 | P.DS ---
Admission Date: 12/18/20 Discharge Date: 12/19/20 Disposition: ROUTINE DISCHARGE Discharge Condition: FAIR Brief History of Present Illness: MR. RAPHAEL IS DOING GOOD. HE HAS NORMAL CATH, NORMAL ECHO, NORMAL SONOGRAM. NORMAL TSH AND NORMAL TESTOSTERONE. HE IS NOT TOLERATING RYBELSUS. I TALKED TO . HE WILL EAT BETTER AND KEEP WEIGHT OFF. IF HE DOES SO HE WILL NOT NEED MORE DIABETES MEDS. Vital Signs/Physical Exam: Temp Pulse Resp BP Pulse Ox 97.9 F 70 18 112/74 96 12/19/20 14:00 12/19/20 14:00 12/19/20 14:00 12/19/20 14:00 12/19/20 12:39 Laboratory Data at Discharge: WBC 6.30 K/uL (4.3-10.9) 12/19/20 05:30 Hgb 14.1 g/dL (13.6-17.9) 12/19/20 05:30 Hct 41.9 % (39.6-49.0) 12/19/20 05:30 Plt Count 231 K/uL (152-406) 12/19/20 05:30 PT 12.1 SECONDS (9.5-12.5) 12/18/20 13:54 INR 1.05 12/18/20 13:54 APTT 30.1 SECONDS (24.3-36.9) 12/18/20 13:54 Sodium 140 mmol/L (136-145) 12/19/20 05:30 Potassium 3.7 mmol/L (3.5-5.1) 12/19/20 05:30 BUN 15 mg/dL (7-18) 12/19/20 05:30 Creatinine 0.83 mg/dL (0.55-1.3) 12/19/20 05:30 Glucose 95 mg/dL (74-106) 12/19/20 05:30 Phosphorus 3.2 mg/dL (2.5-4.9) 12/18/20 13:54 Magnesium 2.1 mg/dL (1.8-2.4) 12/19/20 05:30 Total Bilirubin 0.6 mg/dL (0.2-1.0) 12/18/20 13:54 AST 18 U/L (15-37) 12/18/20 13:54 ALT 29 U/L (12-78) 12/18/20 13:54 Alkaline Phosphatase 91 U/L (45-117) 12/18/20 13:54 Troponin I < 0.02 ng/mL (0.0-0.045) 12/19/20 13:40 Home Medications: Metformin HCl [Glucophage*] 1,000 mg PO BIDWM 07/12/18 Tamsulosin [Flomax*] 0.4 mg PO DAILY 07/12/18 Tramadol HCl [Ultram] 50 mg PO Q6HP PRN #15 tablet 07/13/18 Atorvastatin Calcium 40 mg PO DAILY 12/18/20 Losartan Potassium 50 mg PO DAILY 12/18/20 Physician Discharge Instructions: PROBLEM: Dyspnea, angina GOAL: Clear understanding of disease process INSTRUCTIONS: Diet: diabetic Activity: as tolerated If you have any questions regarding your stay call [phone] If your symptoms worsen call 911 or go to the ED. Dr. Davis said your heart is in excellent shape. Stop taking Rybelsus, it may be giving you side effects. Follow up with Dr. Davis week after next. Call office to make an appointment. Followup: Paul Davis MD [Primary Care Provider] -
[2020-12-19 18:25] VITALS: BP 102/60; TEMP 97.1
--- NOTE | 2020-12-20 14:04 | CON ---
Date of Consultation: 12/19/2020 The patient admitted to Dr. Davis's service on 12/18/2020. I saw the patient on 12/19/2020. Reason For Consultation: Chest pain. History Of Present Illness: Mr. Hair is a 70-year-old male who was just seen in my office for sh ortness of breath, weakness, atypical chest pain with Dr. Truong scheduled in my office to have an echoc ardiogram and a stress test, but got admitted to the hospital soon thereafter that visit with similar symptoms. Dr. Davis was concerned about coronary artery disease. He had a normal chest x-ray gladis l CT angiogram. Symptoms persisted with substernal chest pressure, shortness of breath, fatigue on e xertion and a heart catheterization was planned. Allergies: TO PENICILLIN AND MELOXICAM. Review of Systems: Negative. Social History: Negative. Family History: Negative. Medications: At home include Lipitor, losartan, metformin, Flomax, Tramadol. Past Medical History: Includes hypertension, dyslipidemia, diabetes, benign prostatic hypertrophy, a nd arthritis. Physical Examination: Vital Signs: Stable, afebrile. HEENT: Negative. Neck: Supple without any bruit, lymphadenopathy, JVD, or thyromegaly. Chest: Clear to auscultation and percussion. Cardiac: Reveals a . Abdomen: Benign. Extremities: Revealed no clubbing, cyanosis, or edema. Diagnostic Data: Fairly unremarkable but his glucose was 173. Creatinine was normal. . Impression And Plan: The patient with symptoms suggestive of unstable angina. He has diabetes, hype rtension, dyslipidemia, benign prostatic hypertrophy. We will plan for heart catheterization today t o define his coronary anatomy. The patient understands the risk and benefits of the procedure and he agrees to proceed. FLOYD/MEAGAN Voice ID: [id number] Report ID: [id number]
== END 2020-12-19 17:03 | disposition home or self-care (01) ==
LOC: 2ND 12:31
PROVIDERS: ADMIT Internal Medicine; ATTEND Internal Medicine
DX: R07.9 Chest pain, unspecified (principal); R06.00 Dyspnea, unspecified; I10 Essential (primary) hypertension; E11.9 Type 2 diabetes mellitus without complications; E78.5 Hyperlipidemia, unspecified; N40.0 Benign prostatic hyperplasia without lower urinary tract symptoms; M19.90 Unspecified osteoarthritis, unspecified site; Z88.0 Allergy status to penicillin; Z88.8 Allergy status to other drugs, medicaments and biological substances; Z20.822 Contact with and (suspected) exposure to COVID-19
CPT/HCPCS: 93005 ×2; 93306; 85025 ×2; 80048 ×2; 36415 ×2; 83735 ×2; 82550; 84100; 85610; 82947 ×8; 85379; 80076; 85730; 85652; 84443; 81003; 83036; 84484 ×2; 82553; 82607; 84403; 82306; 86140; 71275; 71045; 93454; 76700; U0003; Q9967; C1893; C1760; J3480; J2250; J3010; J1650 ×2; J7040; J1644; J0583

== ENCOUNTER → 2022-04-02 | Day surgery (SDC) | payer OTHER ==
--- NOTE | 2022-03-31 08:31 | RAD REPORT ---
EXAM DESCRIPTION: RAD - Chest Pa And Lat (2 Views) - 03/31/2022 8:19 am CLINICAL HISTORY: Pre op pending rotator cuff repair COMPARISON: Chest Single View dated 12/19/2020; Chest Single View dated 12/16/2020; Chest Single View dated 05/19/2018; Chest Pa And Lat (2 Views) dated 09/17/2016 FINDINGS: Lines: None. Lungs: No evidence of edema or pneumonia. Pleural: No significant pleural effusions or pneumothorax. Cardiac: The heart size is within normal limits. Mediastinum: Within normal limits. Bones: No acute fractures. Other: None IMPRESSION: No acute cardiopulmonary disease.
[2022-03-31 08:59] LABS: Absolute Lymphocytes (CBC) 2.1 K/uL (0.7-4.9); Hematocrit 45.7 % (39.6-49.0); Lymphocytes % 30.2 % (15.3-44.8); MCV 92.3 fL (80-100); MPV 7.6 fL (7.6-11.3); RBC Red Blood Cell Count 4.95 M/uL (4.33-5.43)
[2022-03-31 09:05] LABS: Protime INR 0.96
[2022-03-31 09:10] LABS: Potassium 3.8 mmol/L (3.5-5.1)
[2022-03-31 09:28] LABS: SARS-CoV-2 Antigen Rapid Res Negative (Negative)
[~2022-04-02] MED LIST: ACETAMINOPHEN 500 MG TAB ONE; CLINDAMYCIN 600MG/D5W 600 MG/50 ML BAG IV ONE; EPHEDRINE SULF 50 MG/ML VIAL ONE; EPINEPHRINE/PF 1 MG/ML AMP ONE; FENTANYL CITR 100 MCG/2 ML ONE; KETOROLAC 30 MG/ML INJ ONE; LIDOCAINE 1% MPF 5 ML VIAL ONE; LIDOCAINE 2% MPF 5 ML VIAL ONE; MIDAZOLAM HCL 2 MG/2 ML INJ ONE; NA CHLORIDE 0.9% 1,000 ML ONE; NOREPINEPHRINE 4 MG in D5W 250 ML IV SCH; ONDANSETRON 4 MG/2 ML VIAL ONE; Phenylephrine HCl 10 MG/ML 1 ML VIAL ONE; ROCURONIUM 50 MG/5 ML VIAL IV ONE; ROPLVACAINE HCL 40 ML ONE; dexAMETHasone 10 MG/ML VIAL ONE; propofoL 200 MG/20 ML VIAL IV ONE
--- NOTE | 2022-04-02 10:53 | P.BOP ---
Preoperative diagnosis: left rotator cuff tear, bicipital tenosynovitis, impingement syndrome Postoperative diagnosis: same, left shoulder SLAP tear Primary procedure: left shoulder arthroscopic rotator cuff repair Secondary procedure: left shoulder arthroscopic biceps tenotomy with SLAP debridement Other procedure(s): left shoulder arthroscopic subacromial decompression Bakery Supervisor: NONE,NONE Estimated blood loss: 20 cc Specimen: none Findings: see dictation Anesthesia: General Complications: None Implants: 1- 5.5 mm Arthrex corkscrew, 1 - 4.75 mm Arthrex swivelock Fluids & blood products: per anesthesia record Transferred to: Recovery Room Condition: Good
--- NOTE | 2022-04-02 11:33 | RAD REPORT ---
EXAM DESCRIPTION: RAD - Shoulder 1 View - 04/02/2022 11:14 am CLINICAL HISTORY: S/P LEFT RCR COMPARISON: Shoulder Left Wo Cont dated 01/15/2022 FINDINGS: Postsurgical frontal projection of the left shoulder noted. No fracture seen. Mild arthrit ic changes. No unexpected postoperative finding.
[2022-04-02] MEDS: Phenylephrine HCl 10 MG/ML 1 ML VIAL ONE ×3 (11:41→12:00)
[2022-04-02 14:29] VITALS: TEMP 97.1; O2SAT 97
[2022-04-02 15:38] VITALS: BP 124/67
--- NOTE | 2022-04-08 06:45 | OP ---
Date of Procedure: 04/02/2022 Surgeon: Jsoe Jones MD Preoperative Diagnoses: 1.Left rotator cuff tear. 2.Left shoulder bicipital tenosynovitis. 3.Left shoulder impingement syndrome. Postoperative Diagnoses: 1.Left rotator cuff tear. 2.Left shoulder bicipital tenosynovitis. 3.Left shoulder impingement syndrome. 4.Left shoulder superior labrum anterior and posterior tear. Procedure Performed: 1.Left shoulder arthroscopic rotator cuff repair. 2.Left shoulder arthroscopic biceps tenotomy with superior labrum anterior and posterior debridement . 3.Left shoulder arthroscopic subacromial decompression. Anesthesia: General endotracheal. Fluids: Per Anesthesia record. Ebl: 20 cc. Complications: None. Implants: 1.One 5.5 mm Arthrex corkscrew. 2.One 4.75 mm Arthrex SwiveLock. Indication For Procedure: Tmi is a 71-year-old male who presented to my clinic with signs, sympto ms, and MRI findings consistent with a left shoulder rotator cuff tear as well as impingement syndrom e. I have discussed with the patient at length risks and benefits associated with operative and nono perative treatment. He expressed understanding and elected to proceed with the operative treatment. Description Of Procedure: After informed consent was obtained, the patient was identified in the pre operative holding area. The left upper extremity was marked. The patient was then brought back to [facility] PACU where he underwent a left-sided interscalene block performed by Anesthesia. He was then brou ght back to the operating room, transferred to the operating table in supine fashion, and placed unde r general endotracheal anesthesia. He was then placed in the beach chair position with his extremiti es well padded. His left upper extremity was then examined. The patient had full range of motion wi thout any instability noted. The left upper extremity was then prepped and draped in the usual steri le fashion. A time-out was initiated. The correct patient and procedure were confirmed and identifi ed. The patient did receive his preoperative prophylactic antibiotics. Attention was first taken to creating the posterior portal. A spinal needle was then introduced into the glenohumeral joint via the posterior portal position and the shoulder was injected with 30 mL of normal saline to distend th e capsule. A stab incision was made posteriorly and the arthroscope was brought in via the posterior portal position. Under direct visualization, an anterior portal was created and a cannula was place d and a diagnostic arthroscopy was performed. The patient was noted to have a full-thickness tear on the anterior aspect of the supraspinatus tendon. There was no significant subscapularis tear, which was stable to probe. The anterior and posterior labrum were stable to probe. The patient was noted to have a type 1 SLAP tear with significant bicipital tenosynovitis noted and fraying. A biceps ten otomy was then performed using a meniscal biter, an arthroscopic shaver was then used to debride the biceps anchor and the SLAP tear to smooth borders. There were no loose bodies noted within the axill helio pouch. The undersurface of the rotator cuff tear was debrided using the arthroscopic shaver and the greater tuberosity was debrided using an arthroscopic shaver to create a bleeding bony bed. The arthroscope was then brought to the subacromial space and a subacromial bursectomy was performed usin g an arthroscopic shaver after a lateral portal was created. There was some fraying of the coracoacr omial ligament consistent with impingement syndrome, and a subacromial decompression was completed at the end of the case. Next, attention was taken to the rotator cuff tear. Again, it was debrided fu rther on the bursal side using the arthroscopic shaver. It was noted to be reducible to the greater tuberosity. A double-loaded corkscrew was then placed just lateral to the articular surface. The doherty tures were then passed anterior to posterior. The posterior sutures were noted to be transected with passage of the final posterior suture line. At that point, a FiberTape was then selected and placed in an inverted mattress fashion for posterior fixation. It was good overall. The anterior sutures were then tied in a horizontal mattress fashion. There was good overall reduction of the rotator cuf f tear on the greater tuberosity. The suture was then brought to a single 4.75 mm SwiveLock laterall y for lateral row fixation to increase the surface area of the repair. The remaining suture limbs we re then cut. There was good overall reduction of the rotator cuff on the greater tuberosity. Next, attention was taken to subacromial decompression. Again, the undersurface of the acromion was debrid ed using a radiofrequency ablator, and acromioplasty was performed using an arthroscopic cecilio. Arthr oscopic instruments were then removed without complication. Wounds were then irrigated thoroughly wi th normal saline. Subcutaneous tissues were approximated using 2-0 Vicryl. Skin was approximated us ing 4-0 Monocryl. Sterile dressings were applied. The patient was placed in a shoulder immobilizer, awakened, and transferred to PACU in stable condition. Postoperative Plan: The patient will follow up in one week for wound check and dressing change. He will begin physical therapy at 4 weeks postop for medium rotator cuff repair protocol. RICCARDO/MODL Voice ID: [id number] Report ID: [id number]
== END ==
LOC: OR 05:50
PROVIDERS: ATTEND Orthopaedic Surgery Sports Medicine
PROC: 0RNK4ZZ Release Left Shoulder Joint, Percutaneous Endoscopic Approach (ICD-10-PCS; 2022-04-02)
PROC: 0RBK4ZZ Excision of Left Shoulder Joint, Percutaneous Endoscopic Approach (ICD-10-PCS; 2022-04-02)
PROC: 0LM24ZZ Reattachment of Left Shoulder Tendon, Percutaneous Endoscopic Approach (ICD-10-PCS; principal; 2022-04-02 08:00)
DX: M75.102 Unspecified rotator cuff tear or rupture of left shoulder, not specified as traumatic (principal); M75.22 Bicipital tendinitis, left shoulder; M75.42 Impingement syndrome of left shoulder; M25.512 Pain in left shoulder; Z88.0 Allergy status to penicillin; E11.9 Type 2 diabetes mellitus without complications; I10 Essential (primary) hypertension; Z20.822 Contact with and (suspected) exposure to COVID-19
CPT/HCPCS: 29827; 29826; 29822; 85025; 80048; 36415; 85610; 82947 ×2; 85730; 71046; 73020; 87811; J2704; J0171 ×2; J2001 ×2; J2370 ×2; J2250; J3010; J1100; J2795; J7060; J7030 ×4; J2405

== ENCOUNTER 2022-12-10 09:56 | Day surgery (SDC) | payer OTHER ==
--- NOTE | 2022-12-08 10:47 | RAD REPORT ---
EXAM DESCRIPTION: RAD - Chest Pa And Lat (2 Views) - 12/08/2022 10:15 am CLINICAL HISTORY: Pre op pending trigger finger release Chest pain. COMPARISON: Chest Pa And Lat (2 Views) dated 03/31/2022; Chest Single View dated 12/19/2020; Chest Sing le View dated 12/16/2020; Chest Single View dated 05/19/2018 TECHNIQUE: PA and lateral views of the chest were obtained. FINDINGS: The lungs are hyperexpanded compatible with COPD. The heart is upper limit of normal in si ze. No fracture or aggressive bony process. IMPRESSION: COPD without acute process identified. The USPSTF recommends annual screening for lung cancer with low-dose CT (LDCT) in adults aged 50 to 80 years who have a 20 pack-year smoking history and currently smoke or have quit within the past 15 years.
[2022-12-08 11:01] LABS: Absolute Lymphocytes (CBC) 1.6 K/uL (0.7-4.9)
[2022-12-08 11:05] LABS: Protime INR 1.05
[2022-12-08 11:07] LABS: Hematocrit 45.7 % (39.6-49.0); Lymphocytes % 29.4 % (15.3-44.8); MCV 94.9 fL (80-100); MPV 8.7 fL (7.6-11.3); RBC Red Blood Cell Count 4.81 M/uL (4.33-5.43)
[2022-12-08 11:15] LABS: Potassium 3.8 mEq/L (3.5-5.1)
--- NOTE | 2022-12-08 15:17 | EKG ---
Test Date: 2022-12-08 Test Time: 10:07:11 Rig Welder: MANAV MEASUREMENT RESULTS: Intervals: Rate: 60 UT: 164 QRSD: 102 QT: 418 QTc: 418 Vaughn: P: 75 UT: 164 QRS: 60 T: 60 INTERPRETIVE STATEMENTS: Sinus rhythm with marked sinus arrhythmia Otherwise normal ECG Compared to ECG 12/19/2020 06:16:37 Atrial premature complex(es) no longer present Electronically Signed On 12-08-22 15:17:23 CDT by Phillip Pizano
[2022-12-10] MEDS ORDERED: NA CHLORIDE 0.9% 1,000 ML ONE (10:31)
[2022-12-10] MEDS ORDERED: VANCOMYCIN 1 GM/VIAL ONE (10:31)
[2022-12-10] MEDS ORDERED: FENTANYL CITR 100 MCG/2 ML ONE ×2 (11:11→13:07)
[2022-12-10] MEDS ORDERED: MIDAZOLAM HCL 2 MG/2 ML INJ ONE (11:11)
[2022-12-10] MEDS ORDERED: propofoL 200 MG/20 ML VIAL IV ONE (11:11)
[2022-12-10] MEDS ORDERED: ONDANSETRON 4 MG/2 ML VIAL ONE (11:12)
[2022-12-10] MEDS ORDERED: LIDOCAINE 2% MPF 5 ML VIAL ONE (11:12)
[2022-12-10] MEDS ORDERED: CLINDAMYCIN 600MG/D5W 50 ML IV ONE (11:42)
[2022-12-10] MEDS: BUPIVACAINE 0.25% PF 10 ML VIAL ONE ×2 (11:56→12:01)
--- NOTE | 2022-12-10 12:07 | P.BOP ---
Preoperative diagnosis: right ring finger trigger digit Postoperative diagnosis: same Primary procedure: right ring finger A1 roly release Supervisor Production Department: NONE,NONE Estimated blood loss: 3 cc Specimen: none Findings: see dictation Anesthesia: General Complications: None Implants: none Fluids & blood products: per anesthesia record; TT: 12 mins @ 250 mmHg Transferred to: Recovery Room Condition: Good
[2022-12-10] MEDS ORDERED: KETOROLAC 30 MG/ML INJ ONE (12:10)
[2022-12-10 12:39] VITALS: TEMP 97.6
[2022-12-10 13:38] VITALS: BP 109/62; O2SAT 96
== END 2022-12-10 13:34 | disposition home or self-care (01) ==
LOC: OR 09:56
PROVIDERS: ATTEND Orthopaedic Surgery Sports Medicine
PROC: 0LN70ZZ Release Right Hand Tendon, Open Approach (ICD-10-PCS; principal; 2022-12-10 11:30)
DX: M65.341 Trigger finger, right ring finger (principal)
CPT/HCPCS: 93005; 85025; 80048; 36415; 85610; 82947 ×2; 85730; 71046; 26055; J2704; J2001; J2250; J3010 ×2; J2405; J7030

== ENCOUNTER 2023-01-19 10:36 | Day surgery (SDC) | payer OTHER ==
[2023-01-18 08:28] LABS: Absolute Lymphocytes (CBC) 2.1 K/uL (0.7-4.9); Hematocrit 43.8 % (39.6-49.0); Lymphocytes % 30.8 % (15.3-44.8); MCV 94.7 fL (80-100); RBC Red Blood Cell Count 4.62 M/uL (4.33-5.43)
[2023-01-18 08:32] LABS: Protime INR 0.99
[2023-01-19] MEDS ORDERED: CLINDAMYCIN 600MG/D5W 50 ML IV ONE (10:56)
[2023-01-19] MEDS ORDERED: NA CHLORIDE 0.9% 1,000 ML ONE (10:56)
[2023-01-19] MEDS ORDERED: propofoL 200 MG/20 ML VIAL IV ONE (11:19)
[2023-01-19] MEDS ORDERED: FENTANYL CITR 100 MCG/2 ML ONE (11:19)
[2023-01-19] MEDS ORDERED: MIDAZOLAM HCL 2 MG/2 ML INJ ONE (11:20)
[2023-01-19] MEDS ORDERED: KETOROLAC 30 MG/ML INJ ONE (11:20)
[2023-01-19] MEDS ORDERED: LIDOCAINE 2% MPF 5 ML VIAL ONE (11:21)
[2023-01-19] MEDS ORDERED: ONDANSETRON 4 MG/2 ML VIAL ONE (11:21)
[2023-01-19] MEDS: BUPIVACAINE 0.25% PF 10 ML VIAL ONE ×2 (12:17→12:38)
--- NOTE | 2023-01-19 12:50 | P.BOP ---
Preoperative diagnosis: left ring finger trigger digit Postoperative diagnosis: same Primary procedure: left ring finger A1 roly release Ur Coordinator: NONE,NONE Estimated blood loss: 2 cc Specimen: none Findings: see dictation Anesthesia: General Complications: None Implants: none Fluids & blood products: per anesthesia record; TT: 17 mins @ 250 mmHg Transferred to: Recovery Room Condition: Good
[2023-01-19] MEDS ORDERED: CODEINE 30MG/APAP 300MG TAB ONE (14:00)
--- NOTE | 2023-01-19 14:06 | P.OP ---
Preoperative diagnosis: left ring finger trigger digit Postoperative diagnosis: same Primary procedure: left ring finger A1 roly release Anesthesia: general Estimated blood loss: 2 cc Specimen: none Findings: see dictation Operative Technique: Indication For Procedures: Tim is a 72-year-old male who presented to my clinic with signs and symptoms consistent with the left ring finger trigger digit. Patient failed conservative treatment measures. The pain interfered with his activities of daily living and he elected to proceed with operative treatment. Description Of Procedure: After informed consent was obtained, the patient was identified in the preoperative holding area. The left upper extremity was marked. Patient was then brought back to the operating room, transferred into the operating table in supine fashion, placed under general LMA anesthesia. The left upper extremity was then prepped and draped in usual sterile fashion. A time-out was initiated. The correct patient and procedure were confirmed and identified. The patient did receive preoperative prophylactic antibiotics. The left upper extremity was exsanguinated. The tourniquet was inflated to 250 mmHg. A standard 2 cm longitudinal incision was made and centered over the A1 roly of the ring finger. Dissection was then taken down to the flexor tendon sheath A 15 blade was then used to incise the flexor tendon sheath to perform an A1 roly release. A portion of the flexor tendon sheath was then excised to minimize risk for recurrence. The flexor tendon was brought out through the incision and there was noted to be full excursion of the tendon without triggering noted. Wound was then irrigated thoroughly with normal saline. Skin was approximated using a 5-0 Prolene. Sterile dressings were applied. Tourniquet was let down. The patient was awakened and transferred to PACU in stable condition. Postoperative Plan: The patient will be nonweightbearing to left upper extremity. He will follow up in clinic in 1 to 2 weeks for suture removal. Complications: None Implants: none Fluids & blood products: per anesthesia record; TT: 17 mins @ 250 mmHg Transferred to: Recovery Room Condition: Good
[2023-01-19 14:28] VITALS: O2SAT 98
[2023-01-19 14:30] VITALS: BP 115/68; TEMP 97
== END 2023-01-19 14:10 | disposition home or self-care (01) ==
LOC: OR 10:36
PROVIDERS: ATTEND Orthopaedic Surgery Sports Medicine
PROC: 0LN80ZZ Release Left Hand Tendon, Open Approach (ICD-10-PCS; principal; 2023-01-19 12:15)
DX: M65.342 Trigger finger, left ring finger (principal); M65.341 Trigger finger, right ring finger; M25.541 Pain in joints of right hand; M25.542 Pain in joints of left hand
CPT/HCPCS: 26055; 85025; 80048; 36415; 85610; 82947 ×2; 85730; J2704; J2001; J2250; J3010; J2405; J7030

== ENCOUNTER 2023-10-23 08:21 | Emergency (ER) | payer OTHER ==
[2023-10-23] MEDS ORDERED: ONDANSETRON 4 MG/2 ML VIAL ONE (09:16)
[2023-10-23] MEDS ORDERED: MORPHINE 4 MG/ML SYR ONE (09:16)
[2023-10-23 09:17] LABS: Absolute Eosinophils 0.1 K/uL (0-0.5); Absolute Lymphocytes (CBC) 1.7 K/uL (0.7-4.9); Absolute Monocytes 0.4 K/uL (0.1-1.3); Absolute Neutrophil 3.1 K/uL (1.8-8.0); Basophils % 0.7 % (0-1.3); Eosinophils % 1.6 % (0-4.4); Hematocrit 40.9 % (39.6-49.0); Hemoglobin 13.9 g/dL (13.6-17.9); Lymphocytes % 31.9 % (15.3-44.8); MCV 93.9 fL (80-100); MPV 7.5 fL (7.6-11.3); Monocytes % 7.2 % (3.3-12.3); Neutrophils % 58.6 % (41.7-73.7); Nucleated Red Blood Cells % 0.2 % (0-0); Platelets 208 thou/uL (152-406); RBC Red Blood Cell Count 4.35 M/uL (4.33-5.43); Red Cell Distribution Width 14.1 % (12.1-15.2)
[2023-10-23 09:30] LABS: Albumin 3.3 g/dL (3.4-5.0); Anion Gap 7.7 mEq/L (5.0-15.0); Bilirubin Total 0.7 mg/dL (0.2-1.0); Globulin 3.2 g/dL (2.3-3.5); Potassium 3.7 mEq/L (3.5-5.1); Protein, Total 6.5 g/dL (6.4-8.2)
--- NOTE | 2023-10-23 10:59 | RAD REPORT ---
EXAM DESCRIPTION: US - Extremity Venous Uni Ltd - 10/23/2023 10:49 am CLINICAL HISTORY: Pain COMPARISON: None. TECHNIQUE: Real-time sonographic evaluation of the right lower extremity deep venous system was perf ormed. FINDINGS: Normal compressibility, flow augmentation, phasic flow and spontaneous flow is identified in the right lower extremity deep venous system. No intraluminal filling defects seen. IMPRESSION: No DVT in the right lower extremity.
--- NOTE | 2023-10-23 11:05 | ER ---
Nurse's Notes [facility] Name: Tim Hair Age: 72 yrs Sex: Male : 1950 Arrival Date: 10/23/2023 Time: 08:21 Bed 8 Private MD: Diagnosis: Tendinitis Presentation: 10/22 08:30 Chief complaint: Patient states: RLE pain, redness, numbness started yesterday at 5 PM. ll1 Coronavirus screen: Client denies travel out of the [place] in the last 14 days. At this time, the client does not indicate any symptoms associated with coronavirus-19. Ebola Screen: Patient denies travel to an Ebola-affected area in the 21 days before illness onset. Initial Sepsis Screen: Does the patient meet any 2 criteria? No. Patient's initial sepsis screen is negative. Does the patient have a suspected source of infection? No. Patient's initial sepsis screen is negative. Risk Assessment: Do you want to hurt yourself or someone else? Patient reports no desire to harm self or others. Onset of symptoms was October 22, 2023. 08:30 Method Of Arrival: Ambulatory ll1 08:30 Acuity: RAIMUNDO 3 ll1 Triage Assessment: 08:33 General: Appears in no apparent distress. Behavior is calm, cooperative, appropriate ll1 for age. Pain: Complains of pain in right leg Pain currently is 8 out of 10 on a pain scale. Quality of pain is described as aching. Derm: Reports redness, pain, numbness RLE. Musculoskeletal: Reports pain in right leg. Historical: - Allergies: 08:29 Ibuprofen; ll1 08:29 Mobic; ll1 08:29 Nalfon; ll1 08:29 PENICILLINS; ll1 - PMHx: 08:29 Diabetes - NIDDM; High Cholesterol; Hypertension; ll1 - PSHx: 08:29 orthopedic SX (Hypertension); ll1 - Immunization history:: Adult Immunizations up to date. - Social history:: Smoking status: Patient denies any tobacco usage or history of. Screenin:57 [facility] ED Fall Risk Assessment (Adult) History of falling in the last 3 months, bp including since admission No falls in past 3 months (0 pts). Abuse screen: Denies threats or abuse. Denies injuries from another. Nutritional screening: No deficits noted. Tuberculosis screening: No symptoms or risk factors identified. Assessment: 08:30 General: Appears uncomfortable, Behavior is cooperative, appropriate for age, anxious. bp 09:57 Reassessment: No changes from previously documented assessment. Patient is alert, bp oriented x 3, equal unlabored respirations, skin warm/dry/pink. 10:58 Reassessment: Patient appears in no apparent distress at this time. Patient is alert, bp oriented x 3, equal unlabored respirations, skin warm/dry/pink. Vital Signs: 08:30 BP 130 / 66; Pulse 66; Resp 16; Temp 97.7; Pulse Ox 98% on R/A; Weight 94.35 kg; Height ll1 5 ft. 11 in. ; Pain 8/10; 09:56 BP 99 / 70; Pulse 59; Resp 16; Pulse Ox 99% ; bp 10:56 BP 110 / 62; Pulse 42; Resp 16; Pulse Ox 98% ; bp 08:30 Body Mass Index 29.01 (94.35 kg, 180.34 cm) ll1 08:30 Pain Scale: Adult ll1 ED Course: 08:22 Patient arrived in ED. ll1 08:23 Konrad Sykes, RN is Primary Nurse. bp 08:23 Linda Renae MD is Attending Physician. sp3 08:29 Arm band placed on. ll1 08:29 Patient placed in an exam room, on a stretcher. ll1 08:33 Triage completed. ll1 09:00 Missed attempt(s): 20 gauge in right antecubital area. bc6 09:09 CBC with Diff Sent. bc6 09:09 CMP Sent. bc6 09:09 Initial lab(s) drawn, by tx, sent to lab. Inserted saline lock: 22 gauge in right bc6 forearm, using aseptic technique. Blood collected. 09:57 Patient has correct armband on for positive identification. Bed in low position. bp 10:50 US Extremity Venous Unilateral Ltd In Process Unspecified. EDMS 11:31 No provider procedures requiring assistance completed. IV discontinued, intact, ld1 bleeding controlled, No redness/swelling at site. Administered Medications: 09:22 Drug: morphine IVP or IV 2 mg IVP once over 4 mins Route: IVP; Infused Over: 4 mins; bp Site: right forearm; 09:23 Drug: Ondansetron IVP 4 mg IVP once; over 2 minutes Route: IVP; Site: right forearm; bp Medication: 11:31 VIS not applicable for this client. ld1 Outcome: 11:05 Discharge ordered by . sp3 : Discharged to home ambulatory, with family, ld1 : Condition: stable : Discharge instructions given to patient, family, Instructed on discharge instructions, follow up and referral plans. medication usage, Demonstrated understanding of instructions, follow-up care, medications, Prescriptions given X 1, : Patient left the ED. ld1 Signatures: Dispatcher [employer] EDMS Konrad Sykes RN RN Alley Sin RN RN ll1 Megan Arguello RN RN ld1 Linda Renae MD MD sp3 Aislinn Dave 6
--- NOTE | 2023-10-23 11:05 | EDPHYS ---
Physician Documentation [facility] Name: Tim Hair Age: 72 yrs Sex: Male : 1950 Arrival Date: 10/23/2023 Time: 08:21 Bed 8 Private MD: ED Physician Linda Renae HPI: 10/22 09:03 This 72 yrs old Male presents to ER via Ambulatory with complaints of Leg sp3 Pain, Leg Swelling. 09:03 72-year old male with history of diabetes, hyperlipidemia, hypertension, prior DVT to sp3 left upper extremity status post surgery now presents with right lower extremity swelling and pain episodic off and on for the last 2 to 3 days. Pain is in the right calf extending laterally to the base of the ankle along the tendon. No numbness or tingling reported. ROS is otherwise negative including headache, URI symptoms, fever, chest pain, shortness of breath, back pain, abdominal pain, other extremity pain, or any other signs or symptoms on ROS at this time.. Historical: - Allergies: 08:29 Ibuprofen; ll1 08:29 Mobic; ll1 08:29 Nalfon; ll1 08:29 PENICILLINS; ll1 - PMHx: 08:29 Diabetes - NIDDM; High Cholesterol; Hypertension; ll1 - PSHx: 08:29 orthopedic SX (Hypertension); ll1 - Immunization history:: Adult Immunizations up to date. - Social history:: Smoking status: Patient denies any tobacco usage or history of. ROS: 09:05 Constitutional: Negative for fever, chills, and weight loss, Eyes: Negative for injury, sp3 pain, redness, and discharge, ENT: Negative for injury, pain, and discharge, Neck: Negative for injury, pain, and swelling, Cardiovascular: Negative for chest pain, palpitations, and edema, Respiratory: Negative for shortness of breath, cough, wheezing, and pleuritic chest pain, Abdomen/GI: Negative for abdominal pain, nausea, vomiting, diarrhea, and constipation, Back: Negative for injury and pain, : Negative for injury, bleeding, discharge, and swelling, Skin: Negative for injury, rash, and discoloration, Neuro: Negative for headache, weakness, numbness, tingling, and seizure, Psych: Negative for depression, anxiety, suicide ideation, homicidal ideation, and hallucinations, Allergy/Immunology: Negative for hives, rash, and allergies, Endocrine: Negative for neck swelling, polydipsia, polyuria, polyphagia, and marked weight changes, Hematologic/Lymphatic: Negative for swollen nodes, abnormal bleeding, and unusual bruising, 09:05 All other systems are negative, Exam: 09:05 Constitutional: This is a well developed, well nourished patient who is awake, alert, sp3 and in no acute distress. Head/Face: Normocephalic, atraumatic. Eyes: Pupils equal round and reactive to light, extra-ocular motions intact. Lids and lashes normal. Conjunctiva and sclera are non-icteric and not injected. Cornea within normal limits. Periorbital areas with no swelling, redness, or edema. ENT: Nares patent. No nasal discharge, no septal abnormalities noted. External auditory canals are clear. Oropharynx with no redness, swelling, or masses, exudates, or evidence of obstruction, uvula midline. Mucous membranes moist. Neck: Trachea midline, no thyromegaly or masses palpated, and no cervical lymphadenopathy. Supple, full range of motion without nuchal rigidity, or vertebral point tenderness. No Meningismus. Chest/axilla: Normal chest wall appearance and motion. Nontender with no deformity. No lesions are appreciated. Cardiovascular: Regular rate and rhythm with a normal S1 and S2. No gallops, murmurs, or rubs. Normal PMI, no JVD. No pulse deficits. Respiratory: Lungs have equal breath sounds bilaterally, clear to auscultation and percussion. No rales, rhonchi or wheezes noted. No increased work of breathing, no retractions or nasal flaring. Abdomen/GI: Soft, non-tender, with normal bowel sounds. No distension or tympany. No guarding or rebound. No evidence of tenderness throughout. Back: No spinal tenderness. No costovertebral tenderness. Full range of motion. Skin: Warm, dry with normal turgor. Normal color with no rashes, no lesions, and no evidence of cellulitis. Neuro: Awake and alert, GCS 15, oriented to person, place, time, and situation. Cranial nerves II-XII grossly intact. Motor strength 5/5 in all extremities. Sensory grossly intact. Cerebellar exam normal. Normal gait. Psych: Awake, alert, with orientation to person, place and time. Behavior, mood, and affect are within normal limits. 09:05 Musculoskeletal/extremity: Swelling and pain noted in the right calf extending laterally down to the base of the ankle. No superficial or overlying erythema, subcutaneous air, or any other signs of infection noted. Distal neurovascular exam is normal. Full range of motion is preserved. Pain on palpation also noted along the tendon.. Vital Signs: 08:30 BP 130 / 66; Pulse 66; Resp 16; Temp 97.7; Pulse Ox 98% on R/A; Weight 94.35 kg; Height ll1 5 ft. 11 in. ; Pain 8/10; 09:56 BP 99 / 70; Pulse 59; Resp 16; Pulse Ox 99% ; bp 10:56 BP 110 / 62; Pulse 42; Resp 16; Pulse Ox 98% ; bp 08:30 Body Mass Index 29.01 (94.35 kg, 180.34 cm) ll1 08:30 Pain Scale: Adult ll1 MDM: 08:24 Patient medically screened. sp3 09:06 Data reviewed: vital signs, nurses notes, lab test result(s), radiologic studies. ED sp3 course: 72-year-old male with right lower extremity pain and swelling. Differential diagnosis includes tendinitis, superficial phlebitis, DVT, gout, among others. Will obtain laboratory values, ultrasound venous Doppler, and general observation. Disposition pending workup and patient course.. 11:04 ED course: Ultrasound negative for DVT and laboratory values normal. Not believe sp3 patient has an infection or clot. Will treat with tendinitis with NSAIDs and follow-up to PCP.. 10/22 08:54 Order name: CBC with Diff; Complete Time: 09:40 sp3 10/22 08:54 Order name: CMP; Complete Time: 09:40 sp3 10/22 09:07 Order name: Uric Acid; Complete Time: 09:40 sp3 10/22 08:54 Order name: US Extremity Venous Unilateral Ltd; Complete Time: 11:04 sp3 10/22 08:54 Order name: IV Saline Lock; Complete Time: 09:09 sp3 10/22 08:54 Order name: Labs collected and sent; Complete Time: 09:09 sp3 Administered Medications: 09:22 Drug: morphine IVP or IV 2 mg IVP once over 4 mins Route: IVP; Infused Over: 4 mins; bp Site: right forearm; 09:23 Drug: Ondansetron IVP 4 mg IVP once; over 2 minutes Route: IVP; Site: right forearm; bp Disposition Summary: 10/23/23 11:05 Discharge Ordered Notes: Location: Home sp3 Condition: Stable sp3 Diagnosis - Tendinitis sp3 Followup: sp3 - With: Private Physician - When: Upon discharge from the Emergency Department - Reason: Continuance of care Discharge Instructions: - Discharge Summary Sheet sp3 - Tendinitis sp3 Forms: - Medication Reconciliation Form sp3 - Thank You Letter sp3 - Antibiotic Education sp3 - Prescription Opioid Use sp3 - Patient Portal Instructions sp3 - Leadership Thank You Letter sp3 Prescriptions: - Tramadol 50 mg Oral Tablet - take 1 tablet ORAL route every 8 hours as needed; 12 tablet; Refills: 0, sp3 Product Selection Permitted Signatures: Dispatcher [employer] EDMS Konrad Sykes RN RN bp Lewis, Lynsay, RN RN ll1 Linda Renae MD MD sp3 Corrections: (The following items were deleted from the chart) 08:54 08:54 CBC+H.LAB.BRZ ordered. EDMS EDMS 08:54 08:54 COMPREHENSIVE METABOLIC PANEL+C.LAB.BRZ ordered. EDMS EDMS 08:55 08:55 Extremity Venous Uni Ltd+US.RAD.BRZ ordered. EDMS EDMS 09:05 09:03 72-year old male with history of diabetes, hyperlipidemia, hypertension, prior sp3 DVT to left upper extremity status post surgery now presents with right lower extremity swelling and pain episodic off and on for the last 2 to 3 days. Pain is in the right calf extending laterally to the base of the ankle along the tendon. No numbness or tingling and objectively normal neurovascular exam distally. Full range of motion is intact. There is pain to palpation along with mild swelling in that area. No superficial erythema or redness noted.. sp3 09:07 09:07 URIC ACID+C.LAB.BRZ ordered. EDMS EDMS 11:08 11:05 Posterior tibial tendinitis, right leg sp3 sp3
[2023-10-23 12:14] VITALS: BP 110/62; TEMP 97.7; O2SAT 98
== END 2023-10-23 11:31 | disposition home or self-care (01) ==
LOC: ER 08:21
DX: M77.9 Enthesopathy, unspecified (principal); E11.9 Type 2 diabetes mellitus without complications; I10 Essential (primary) hypertension; Z88.0 Allergy status to penicillin; Z88.6 Allergy status to analgesic agent; Z88.8 Allergy status to other drugs, medicaments and biological substances
CPT/HCPCS: 85025; 36415; 84550; 80053; 93971; 96375; 96374; 99284; J2405

== ENCOUNTER 2024-03-02 19:33 | Emergency (ER) | payer OTHER ==
[2024-03-02] MEDS ORDERED: FENTANYL CITR 100 MCG/2 ML ONE (20:29)
[2024-03-02] MEDS ORDERED: HYDROCODONE/APAP 10/325 TAB ONE (20:29)
--- NOTE | 2024-03-02 21:15 | RAD REPORT ---
EXAM DESCRIPTION: US - Extremity Venous Uni Ltd - 03/02/2024 9:06 pm CLINICAL HISTORY: PAIN Leg swelling and edema. COMPARISON: <Comparisons> FINDINGS: Right lower extremity venous system was interrogated with Doppler technique. Normal flow, compressibility and augmentation was noted. There is no DVT present.4 cm Patton's cyst. IMPRESSION: No evidence of right lower extremity deep venous thrombosis.
--- NOTE | 2024-03-02 21:19 | RAD REPORT ---
EXAM DESCRIPTION: US - Lower Extremity Artery Uni Ltd - 03/02/2024 9:06 pm CLINICAL HISTORY: PAIN COMPARISON: <Comparisons> FINDINGS: Triphasic waveforms seen throughout the right lower extremity arterial system. No high-gra de stenosis or occlusion. IMPRESSION: No flow abnormality seen.
--- NOTE | 2024-03-02 21:40 | EDPHYS ---
Physician Documentation [facility] Name: Tim Hair Age: 73 yrs Sex: Male : 1950 Arrival Date: 03/02/2024 Time: 19:33 Bed 8 Private MD: ED Physician Guerrero Hernandez HPI: 03/02 20:30 This 73 yrs old Male presents to ER via Ambulatory with complaints of Leg Pain.cp 20:30 The patient presents with pain, swelling, tenderness. The complaints affect the right cp lower leg. Context: resulted from an unknown cause, the patient can fully bear weight, the patient is able to ambulate, with moderate difficulty, can ambulate using a cane. Onset: The symptoms/episode began/occurred gradually, and became worse today. Associated signs and symptoms: Pertinent positives: calf tenderness, Pertinent negatives fever, numbness, weakness. Treatment prior to arrival includes: no previous treatment. reports patient with HX of possible venous or arterial blockage in lower legs. Does not take blood thinner. Is non-smoker. HX of DM and elevated cholesterol. Historical: - Allergies: 19:48 Nalfon; tl4 19:48 Mobic; tl4 19:48 PENICILLINS; tl4 - Home Meds: 19:48 atorvastatin 40 mg Oral tablet [Active]; Farxiga 10 mg Oral tablet daily [Active]; tl4 glimepiride 4 mg Oral tablet 2 times per day [Active]; losartan 50 mg Oral tablet nightly [Active]; tamsulosin 0.4 mg Oral cp24 1 cap nightly [Active]; pioglitazone 30 mg Oral tablet daily [Active]; - PMHx: 19:48 Diabetes - NIDDM; High Cholesterol; Hypertension; tl4 - PSHx: 19:48 orthopedic SX (en); tl4 - Immunization history:: Adult Immunizations unknown. - Infectious Disease History:: Denies. - Social history:: Smoking status: Patient denies any tobacco usage or history of. ROS: 20:35 Constitutional: Negative for body aches, chills, fever, poor PO intake, cp 20:35 Eyes: Negative for injury, pain, redness, and discharge, cp 20:35 ENT: Negative for ear pain, sore throat, difficulty swallowing, difficulty handling secretions, 20:35 Cardiovascular: Negative for chest pain, palpitations, 20:35 Respiratory: Negative for cough, shortness of breath, wheezing, 20:35 Abdomen/GI: Negative for abdominal pain, vomiting, diarrhea, constipation, 20:35 Back: Negative for pain at rest, pain with movement, 20:35 MS/extremity: Positive for pain, tenderness, of the right lower leg, 20:35 Neuro: Negative for altered mental status, dizziness, headache, numbness, weakness, 20:35 All other systems are negative, Exam: 20:40 Constitutional: The patient appears in no acute distress, alert, awake, non-toxic, well cp developed, well nourished, uncomfortable, 20:40 Head/Face: Normocephalic, atraumatic. cp 20:40 Eyes: Periorbital structures: appear normal, Conjunctiva: normal, no exudate, no injection, Sclera: no appreciated abnormality, Lids and lashes: appear normal, bilaterally, 20:40 ENT: External ear(s): are unremarkable, Nose: is normal, Mouth: Lips: moist, Oral mucosa: moist, Posterior pharynx: Airway: no evidence of obstruction, patent, 20:40 Chest/axilla: Inspection: normal, 20:40 Cardiovascular: Rate: normal, 20:40 Respiratory: the patient does not display signs of respiratory distress, Respirations: normal, no use of accessory muscles, no retractions, labored breathing, is not present, Breath sounds: are clear throughout, no decreased breath sounds, no stridor, no wheezing, 20:40 Abdomen/GI: Exam negative for discomfort, distension, guarding, 20:40 Back: pain, is absent, ROM is normal, 20:40 Musculoskeletal/extremity: Extremities: grossly normal except: noted in the right lower leg: pain, tenderness, mild swelling, There is no evidence of ecchymosis, erythema, ROM: full active range of motion, in the right leg, Perfusion: the extremity is normally perfused throughout, the right leg Sensation intact. Joints: the right knee displays posterior knee tenderness and mild swelling, Vital Signs: 19:45 BP 142 / 70; Pulse 74; Resp 16; Temp 97.1; Pulse Ox 96% on R/A; Weight 94.8 kg; Height tl4 5 ft. 11 in. ; Pain 10/10; 20:18 BP 126 / 69; Pulse 70; Resp 18; Temp 98.7; Pulse Ox 99% on R/A; Pain 10/10; kd4 22:11 BP 131 / 71; Pulse 74; Resp 17; Temp 98.7; Pulse Ox 99% ; Pain 2/10; bm8 19:45 Body Mass Index 29.15 (94.80 kg, 180.34 cm) tl4 19:45 Pain Scale: Adult tl4 20:18 Pain Scale: Adult kd4 22:11 Pain Scale: Adult bm8 Wander Coma Score: 20:18 Eye Response: spontaneous(4). Motor Response: obeys commands(6). Verbal Response: kd4 oriented(5). Total: 15. 22:11 Eye Response: spontaneous(4). Motor Response: obeys commands(6). Verbal Response: bm8 oriented(5). Total: 15. MDM: 19:54 Patient medically screened. cp 21:00 Differential diagnosis: dvt, cellulitis, peripheral artery disease, Patton's Cyst. cp 21:40 Data reviewed: vital signs, nurses notes, radiologic studies, ultrasound, and as a cp result, I will discharge patient. 21:40 I considered the following discharge prescriptions or medication management in the emergency department Medications were administered in the Emergency Department. See MAR. Care significantly affected by the following chronic conditions: Diabetes, Hypertension. Counseling: I had a detailed discussion with the patient and/or guardian regarding the historical points, exam findings, and any diagnostic results supporting the discharge/admit diagnosis, radiology results, the need for outpatient follow up, a orthopedic surgeon, to return to the emergency department if symptoms worsen or persist or if there are any questions or concerns that arise at home. Response to treatment: the patient's symptoms have mildly improved after treatment, and as a result, I will discharge patient. 03/02 20:24 Order name: Extremity Venous Unilateral Ltd; Complete Time: 21:29 cp 03/02 21:30 Interpretation: Report reviewed. cp 03/02 20:24 Order name: LE Artery Uni Ltd; Complete Time: 21:29 cp 03/02 21:30 Interpretation: Report reviewed. cp Administered Medications: 20:35 Drug: fentaNYL (PF) IM 25 mcg IM once Route: IM; Site: left deltoid; kd4 22:12 Follow up: Response: No adverse reaction bm8 20:35 Drug: HYDROcodone-acetaminophen PO 10 mg-325 mg 1 tabs PO once Route: PO; kd4 22:12 Follow up: Response: No adverse reaction bm8 Disposition Summary: 03/02/24 21:40 Discharge Ordered Notes: Location: Home cp Problem: new cp Symptoms: have improved cp Condition: Stable cp Diagnosis - Synovial cyst of popliteal space [Patton], right knee cp - Pain in right lower leg cp Followup: cp - With: Jose Jones MD - When: 1 week - Reason: pain continues Discharge Instructions: - Discharge Summary Sheet cp - Patton Cyst cp - Musculoskeletal Pain cp - How to Use Cold Therapy cp - Heat Therapy cp Forms: - Medication Reconciliation Form cp - Antibiotic Education cp - Prescription Opioid Use cp - Patient Portal Instructions cp - Leadership Thank You Letter cp Prescriptions: - Medrol (Trent) 4 mg Oral Tablets, Dose Pack - take 1 tablet ORAL route as directed - follow package instructions; 1 packet; cp Refills: 0, Product Selection Permitted - methocarbamol 750 mg Oral tablet - take 1 tablet ORAL route 3 times per day; 30 tablet; Refills: 0, Product cp Selection Permitted Addendum: 03/05/2024 09:55 Co-signature as Attending Physician, Guerrero Hernandez MD I reviewed the patient's care r t provided by the Advanced Practice Provider and agree with the diagnosis and treatment plan. Signatures: Dispatcher [employer] Mike Fine PA PA cp Guerrero Hernandez MD MD rt Rich Nieves RN RN tl4 Namrata Miller RN RN kd4 Sebastien Ruth RN bm8
--- NOTE | 2024-03-02 21:40 | ER ---
Nurse's Notes [facility] Name: Tim Hair Age: 73 yrs Sex: Male : 1950 Arrival Date: 03/02/2024 Time: 19:33 Bed 8 Private MD: Diagnosis: Synovial cyst of popliteal space [Patton], right knee;Pain in right lower leg Presentation: 03/02 19:45 Chief complaint: Patient states: Pt c/o increasing pain in right lower posterior leg tl4 today. Pt states he has hx of blockages in both legs. Unknown swelling or redness. Coronavirus screen: At this time, the client does not indicate any symptoms associated with coronavirus-19. Ebola Screen: No symptoms or risks identified at this time. Initial Sepsis Screen: Does the patient meet any 2 criteria? No. Patient's initial sepsis screen is negative. Does the patient have a suspected source of infection? No. Patient's initial sepsis screen is negative. Risk Assessment: Do you want to hurt yourself or someone else? Patient reports no desire to harm self or others. Onset of symptoms was March 02, 2024 at 07:00. 19:45 Method Of Arrival: Ambulatory tl4 19:45 Acuity: RAIMUNDO 3 tl4 Triage Assessment: 19:49 General: Appears uncomfortable, Behavior is calm, cooperative. Pain: Complains of pain tl4 in right leg. EENT: No signs and/or symptoms were reported regarding the EENT system. Neuro: Level of Consciousness is awake, alert, obeys commands, Oriented to person, place, time, situation, Moves all extremities. Full function Gait is steady, Speech is normal. Cardiovascular: Capillary refill < 3 seconds Patient's skin is warm and dry. Respiratory: Airway is patent Respiratory effort is even, unlabored, Respiratory pattern is regular, symmetrical. GI: No signs and/or symptoms were reported involving the gastrointestinal system. : No signs and/or symptoms were reported regarding the genitourinary system. Derm: No signs and/or symptoms reported regarding the dermatologic system. Musculoskeletal: Reports pain in right leg. Historical: - Allergies: 19:48 Nalfon; tl4 19:48 Mobic; tl4 19:48 PENICILLINS; tl4 - Home Meds: 19:48 atorvastatin 40 mg Oral tablet [Active]; Farxiga 10 mg Oral tablet daily [Active]; tl4 glimepiride 4 mg Oral tablet 2 times per day [Active]; losartan 50 mg Oral tablet nightly [Active]; tamsulosin 0.4 mg Oral cp24 1 cap nightly [Active]; pioglitazone 30 mg Oral tablet daily [Active]; - PMHx: 19:48 Diabetes - NIDDM; High Cholesterol; Hypertension; tl4 - PSHx: 19:48 orthopedic SX (en); tl4 - Immunization history:: Adult Immunizations unknown. - Infectious Disease History:: Denies. - Social history:: Smoking status: Patient denies any tobacco usage or history of. Screenin:18 [facility] ED Fall Risk Assessment (Adult) History of falling in the last 3 months, kd4 including since admission No falls in past 3 months (0 pts) Confusion or Disorientation No (0 pts) Intoxicated or Sedated No (0 pts) Impaired Gait No (0 pts) Mobility Assist Device Used Yes (1 pt) Altered Elimination No (0 pt) Score/Fall Risk Level 0 - 2 = Low Risk Oriented to surroundings, Maintained a safe environment, Educated pt \T\ family on fall prevention, incl call for assistance when getting out of bed, Hourly rounding (assess needs \T\ fall precautionary measures) done. Abuse screen: Denies threats or abuse. Nutritional screening: No deficits noted. 22:11 Tuberculosis screening: No symptoms or risk factors identified. bm8 Assessment: 20:18 General: Appears in no apparent distress. comfortable, well groomed, Behavior is calm, kd4 cooperative, appropriate for age, Denies fever, fatigue, chills. Pain: Pain currently is 10 out of 10 on a pain scale. Aggravated by weight bearing. Neuro: No deficits noted. Level of Consciousness is awake, alert, obeys commands, Oriented to person, place, time, situation, Appropriate for age Moves all extremities. Denies dizziness. Cardiovascular: Denies chest pain, diaphoresis, nausea, palpitations, shortness of breath, syncope, vomiting. Respiratory: Airway is patent Respiratory effort is even, unlabored, Denies cough, shortness of breath labored breathing. GI: No signs and/or symptoms were reported involving the gastrointestinal system. : No signs and/or symptoms were reported regarding the genitourinary system. Derm: No signs and/or symptoms reported regarding the dermatologic system. Musculoskeletal: Reports pain in right leg. 20:45 General: R lower extremity pedal pulse present and normal.. kd4 22:11 Reassessment: Patient appears in no apparent distress at this time. Patient and/or bm8 family updated on plan of care and expected duration. Pain level reassessed. Patient is alert, oriented x 3, equal unlabored respirations, skin warm/dry/pink. Patient states feeling better. Patient states symptoms have improved. Vital Signs: 19:45 BP 142 / 70; Pulse 74; Resp 16; Temp 97.1; Pulse Ox 96% on R/A; Weight 94.8 kg; Height tl4 5 ft. 11 in. ; Pain 10/10; 20:18 BP 126 / 69; Pulse 70; Resp 18; Temp 98.7; Pulse Ox 99% on R/A; Pain 10/10; kd4 22:11 BP 131 / 71; Pulse 74; Resp 17; Temp 98.7; Pulse Ox 99% ; Pain 2/10; bm8 19:45 Body Mass Index 29.15 (94.80 kg, 180.34 cm) tl4 19:45 Pain Scale: Adult tl4 20:18 Pain Scale: Adult kd4 22:11 Pain Scale: Adult bm8 Wolverine Coma Score: 20:18 Eye Response: spontaneous(4). Motor Response: obeys commands(6). Verbal Response: kd4 oriented(5). Total: 15. 22:11 Eye Response: spontaneous(4). Motor Response: obeys commands(6). Verbal Response: bm8 oriented(5). Total: 15. ED Course: 19:37 Patient arrived in ED. jj6 19:48 Triage completed. tl4 19:50 Mike Marlow PA is PHCP. cp 19:50 Guerrero Hernandez MD is Attending Physician. cp 19:50 Arm band placed on right wrist. tl4 20:03 Patient has correct armband on for positive identification. Placed in gown. Bed in low tl4 position. Call light in reach. Side rails up X 1. Adult w/ patient. Provided Education on: ed process, call [facility]. Client placed on continuous cardiac and pulse oximetry monitoring. NIBP monitoring applied. alarm security or surveillance monitor on. Door closed. Noise minimized. Moved to private room. Warm blanket given. 21:08 Extremity Venous Unilateral Ltd In Process Unspecified. EDMS 21:08 US LE Artery Uni Ltd In Process Unspecified. EDMS 21:38 Jose Jones MD is Referral Physician. cp 22:10 Sebastien Ruth, RN is Primary Nurse. bm8 22:11 No provider procedures requiring assistance completed. Patient did not have IV access bm8 during this emergency room visit. Administered Medications: 20:35 Drug: fentaNYL (PF) IM 25 mcg IM once Route: IM; Site: left deltoid; kd4 22:12 Follow up: Response: No adverse reaction bm8 20:35 Drug: HYDROcodone-acetaminophen PO 10 mg-325 mg 1 tabs PO once Route: PO; kd4 22:12 Follow up: Response: No adverse reaction bm8 Medication: 22:11 VIS not applicable for this client. bm8 Outcome: 21:40 Discharge ordered by . cp 22:10 Patient left the ED. bm8 22:11 Discharged to home ambulatory, bm8 22:11 Condition: stable 22:11 Discharge instructions given to patient, family, Instructed on discharge instructions, follow up and referral plans. safety practices, Demonstrated understanding of instructions, follow-up care, medications, Prescriptions given X 2, Signatures: Dispatcher [employer] EDMO Mike Marlow PA PA cp Jeffries, Jennifer jj6 Rich Nieves RN RN tl4 Sebastien Ruth, RN RN bm8 Namrata Miller, RN RN kd4
[2024-03-02 22:33] VITALS: BP 126/69; TEMP 98.7; O2SAT 99
== END 2024-03-02 22:10 | disposition home or self-care (01) ==
LOC: ER 19:33
DX: M71.21 Synovial cyst of popliteal space [Baker], right knee (principal); E11.9 Type 2 diabetes mellitus without complications; I10 Essential (primary) hypertension
CPT/HCPCS: 93926; 93971; 96372; 99285; J3010

== ENCOUNTER 2025-04-16 14:01 | Emergency (ER) | payer OTHER ==
[2025-04-16 16:18] LABS: Absolute Lymphocytes (CBC) 1.8 K/uL (0.7-4.9); Hematocrit 39.3 % (39.6-49.0); Hemoglobin 13.3 g/dL (13.6-17.9); MCH 32.0 pg (27.0-35.0); MCHC 33.9 g/dL (32.0-36.0); MCV 94.5 fL (80-100); MPV 7.9 fL (7.6-11.3); Nucleated RBC Absolute Count 0.0 (0-0); Nucleated Red Blood Cells % 0.2 % (0-0); RBC Red Blood Cell Count 4.16 M/uL (4.33-5.43); White Blood Count 5.80 thou/uL (4.3-10.9)
--- NOTE | 2025-04-16 16:51 | RAD REPORT ---
Extremity Venous Uni Ltd CLINICAL INDICATION: Male, 74 years old.SWELLING RIGHT TECHNIQUE: Complete duplex sonography of the lower extremity veins was performed of the affected limb . The examination included compression for vein patency, color Doppler imaging and flow augmentation in response to distal compression of the distal external iliac, common femoral, femoral, popliteal, peroneal, tibial and great saphenous veins. [id number]. COMPARISON: No prior exams FINDINGS: Duplex sonography imaging demonstrates all deep veins examined to be fully compressible with spontane ous, phasic and augmented flow in the affected limb. IMPRESSION: No evidence of deep venous thrombosis in the right lower extremity.
[2025-04-16 16:55] LABS: Anion Gap 9.0 mEq/L (5.0-15.0); BUN Blood Urea Nitrogen 22.0 mg/dL (7-18); Glucose Level 202.0 mg/dL (74-106); Potassium 4.0 mEq/L (3.5-5.1)
--- NOTE | 2025-04-16 17:00 | EDPHYS ---
Physician Documentation [facility] Name: Tim Hair Age: 74 yrs Sex: Male : 1950 Arrival Date: 04/16/2025 Time: 14:01 Bed 6 Private MD: Mike Fields HPI: 04/16 14:34 This 74 yrs old Male presents to ER via Ambulatory with complaints of SENT dr5 OVER BY FOR POSSIBLE BLOOD CLOT. 14:34 Onset: The symptoms/episode began/occurred acutely. Patient is a 74-year-old male with dr5 history of diabetes, hyperlipidemia, hypertension, prostate cancer coming in with right lower leg swelling and 1 spot on the back of his leg. No tenderness to palpation. Patient reports that he feels intermittent numbness and has been going on since his surgery. Patient reports he had procedure on April 11, 2025 which consisted of a Roto-Rooter of prostate to decrease size. Patient has radiation scheduled the next couple weeks. Patient denies difficulty ambulating, weakness of right leg, or any other symptoms. Patient reports he called his doctor and was referred to the ER to rule out DVT of right lower leg. Historical: - Allergies: 14:11 Mobic; ll1 14:11 Nalfon; ll1 14:11 PENICILLINS; ll1 - PMHx: 14:11 Diabetes - NIDDM; High Cholesterol; Hypertension; ll1 - PSHx: 14:11 orthopedic SX; ll1 - Immunization history:: Adult Immunizations up to date. - Infectious Disease History:: Denies. - Social history:: Smoking status: Patient denies any tobacco usage or history of. ROS: 14:36 Constitutional: as per hpi dr5 Exam: 14:36 Constitutional: This is a well developed, well nourished patient who is awake, alert, dr5 and in no acute distress. Head/Face: Normocephalic, atraumatic. Eyes: Pupils equal round and reactive to light, extra-ocular motions intact. Lids and lashes normal. Conjunctiva and sclera are non-icteric and not injected. Cornea within normal limits. Periorbital areas with no swelling, redness, or edema. ENT: Nares patent. No nasal discharge, no septal abnormalities noted. Tympanic membranes are normal and external auditory canals are clear. Oropharynx with no redness, swelling, or masses, exudates, or evidence of obstruction, uvula midline. Mucous membranes moist. Chest/axilla: Normal chest wall appearance and motion. Nontender with no deformity. No lesions are appreciated. Cardiovascular: Regular rate and rhythm with a normal S1 and S2. Normal PMI, no JVD. No pulse deficits. Respiratory: Lungs have equal breath sounds bilaterally, clear to auscultation. No rales, rhonchi or wheezes noted. No increased work of breathing, no retractions or nasal flaring. Back: No spinal tenderness. No costovertebral tenderness. Full range of motion. Skin: Warm, dry with normal turgor. Normal color with no rashes, no lesions, and no evidence of cellulitis. Neuro: Awake and alert, GCS 15, oriented to person, place, time, and situation. Cranial nerves II-XII grossly intact. Motor strength 5/5 in all extremities. Sensory grossly intact. Cerebellar exam normal. Normal gait. 14:36 Musculoskeletal/extremity: Extremities: grossly normal except: noted in the right leg: There is no evidence of pain, tenderness, ROM: no acute changes, intact in all extremities, Circulation is intact in all extremities. Sensation intact. Vital Signs: 14:15 BP 114 / 59; Pulse 74; Resp 16; Temp 97.8; Pulse Ox 98% ; Weight 96.62 kg; Height 5 ft. ll1 11 in. ; Pain 0/10; 17:17 BP 121 / 67; Pulse 79; Resp 16; Pulse Ox 99% on R/A; dd2 14:15 Body Mass Index 29.71 (96.62 kg, 180.34 cm) ll1 14:15 Pain Scale: Adult ll1 Ransom Coma Score: 16:53 Eye Response: spontaneous(4). Motor Response: obeys commands(6). Verbal Response: dd2 oriented(5). Total: 15. MDM: 14:07 Medical Screening Exam initiated dr5 17:04 Differential diagnosis: viral Infection, bacterial infection, DVT, Anemia, Acute Kidney dr5 Injury. Data reviewed: vital signs, nurses notes, lab test result(s), CBC, white blood cell count, hemoglobin, hematocrit, platelets, electrolytes, sodium, potassium, chloride, serum bicarbonate, BUN, creatinine, serum glucose, radiologic studies, ultrasound. Consideration of Admission/Observation Escalation of care including admission/observation considered. Escalation considered patient found to have DVT. I considered the following discharge prescriptions or medication management in the emergency department I discussed and recommended Over The Counter medications, Medications were administered in the Emergency Department. See MAR. Historians other than the Patient: Spouse/Significant Other: . Care significantly affected by the following chronic conditions: Diabetes, Hypertension, Hyperlipidemia. Care significantly affected by the following Social Determinants of Health: Poor access to healthcare and/or lack of insurance, Poor access to transportation, Problems related to employment. Counseling: I had a detailed discussion with the patient and/or guardian regarding the historical points, exam findings, and any diagnostic results supporting the discharge/admit diagnosis, the presence of at least one elevated blood pressure reading (>120/80) during this emergency department visit, lab results, radiology results, the need for outpatient follow up, for definitive care, a family practitioner, to return to the emergency department if symptoms worsen or persist or if there are any questions or concerns that arise at home. Special discussion: I discussed with the patient/guardian in detail that at this point there is no indication for admission to the hospital. It is understood, however, that if the symptoms persist or worsen the patient needs to return immediately for re-evaluation. Based on the history and exam findings, there is no indication for further emergent testing or inpatient evaluation. I discussed with the patient/guardian the need to see the primary care provider for further evaluation of the symptoms. ED course: Patient did not find to have DVT on ultrasound. Recommended follow-up primary care doctor as well as provider in [place] that did recent surgery. All labs and ultrasound results are printed and given to patient take with him. All questions were. Return precautions given.. 04/16 14:21 Order name: CBC with Diff; Complete Time: 16:21 ll1 04/16 14:21 Order name: BMP; Complete Time: 16:56 ll1 04/16 14:21 Order name: US Extremity Venous Unilateral Ltd; Complete Time: 16:51 ll1 04/16 16:23 Order name: Misc. Order: RECOLLECT ([place]) HEMOLYZED; Complete Time: 16:35 ss Administered Medications: No medications were administered Disposition Summary: 04/16/25 16:59 Discharge Ordered Notes: Location: Home dr5 Condition: Stable dr5 Diagnosis - Pain in right leg dr5 Followup: dr5 - With: Emergency Department - When: As needed - Reason: Worsening of condition Followup: dr5 - With: Private Physician - When: 1 - 2 days - Reason: Recheck today's complaints, Continuance of care, Re-evaluation by your physician Discharge Instructions: - Discharge Summary Sheet dr5 - Musculoskeletal Pain dr5 Forms: - Medication Reconciliation Form dr5 - Patient Portal Instructions dr5 - Leadership Thank You Letter dr5 Signatures: Dispatcher [employer] Krystyna Amaro RN RN ss Alley Bustillos RN RN ll1 ELE DEGROOT RN RN dd2 Agustin Reinoso, PBX INSPECTOR-C PBX INSPECTOR-Cdr5
--- NOTE | 2025-04-16 17:00 | ER ---
Nurse's Notes [facility] Name: Tim Hair Age: 74 yrs Sex: Male : 1950 Arrival Date: 04/16/2025 Time: 14:01 Bed 6 Private MD: Diagnosis: Pain in right leg Presentation: 04/16 14:13 Chief complaint: Patient states: Sent in to check for blood clot in RLE. Small bump ll1 noticed today, had surgery 04/11. Coronavirus screen: Client denies travel out of the [place] in the last 14 days. At this time, the client does not indicate any symptoms associated with coronavirus-19. Ebola Screen: Patient denies travel to an Ebola-affected area in the 21 days before illness onset. Initial Sepsis Screen: Does the patient meet any 2 criteria? No. Patient's initial sepsis screen is negative. Does the patient have a suspected source of infection? No. Patient's initial sepsis screen is negative. Risk Assessment: Do you want to hurt yourself or someone else? Patient reports no desire to harm self or others. 14:13 Method Of Arrival: Ambulatory ll1 14:13 Acuity: RAIMUNDO 3 ll1 14:15 Onset of symptoms was April 16, 2025. 1 Triage Assessment: 14:13 General: Appears in no apparent distress. Behavior is calm, cooperative, appropriate ll1 for age. Pain: Complains of pain in right leg Quality of pain is described as aching. Musculoskeletal: Reports pain in right leg lump R leg. Historical: - Allergies: 14:11 Mobic; ll1 14:11 Nalfon; ll1 14:11 PENICILLINS; ll1 - PMHx: 14:11 Diabetes - NIDDM; High Cholesterol; Hypertension; ll1 - PSHx: 14:11 orthopedic SX; ll1 - Immunization history:: Adult Immunizations up to date. - Infectious Disease History:: Denies. - Social history:: Smoking status: Patient denies any tobacco usage or history of. Screenin:53 [facility] ED Fall Risk Assessment (Adult) History of falling in the last 3 months, dd2 including since admission No falls in past 3 months (0 pts) Confusion or Disorientation No (0 pts) Intoxicated or Sedated Yes (3 pts) Impaired Gait No (0 pts) Mobility Assist Device Used No (0 pt) Altered Elimination No (0 pt) Score/Fall Risk Level 0 - 2 = Low Risk Oriented to surroundings, Maintained a safe environment, Educated pt \T\ family on fall prevention, incl call for assistance when getting out of bed, Assessed \T\ reinforced patient's understanding of fall precautions, Hourly rounding (assess needs \T\ fall precautionary measures) done. Abuse screen: Denies threats or abuse. Denies injuries from another. Nutritional screening: No deficits noted. Tuberculosis screening: No symptoms or risk factors identified. Assessment: 16:53 General: Appears in no apparent distress. Behavior is calm, cooperative, appropriate dd2 for age. Pain: Denies pain. Neuro: No deficits noted. Level of Consciousness is awake, alert, obeys commands, Oriented to person, place, time, situation, Appropriate for age. Cardiovascular: No deficits noted. Respiratory: No deficits noted. Airway is patent Respiratory effort is even, unlabored, Respiratory pattern is. GI: No deficits noted. No signs and/or symptoms were reported involving the gastrointestinal system. : No deficits noted. No signs and/or symptoms were reported regarding the genitourinary system. EENT: No deficits noted. No signs and/or symptoms were reported regarding the EENT system. Derm: SMALL RAISED NODULE POSTERIOR RLE. Musculoskeletal: Circulation, motion, and sensation intact. Range of motion: intact in all extremities. Vital Signs: 14:15 BP 114 / 59; Pulse 74; Resp 16; Temp 97.8; Pulse Ox 98% ; Weight 96.62 kg; Height 5 ft. ll1 11 in. ; Pain 0/10; 17:17 BP 121 / 67; Pulse 79; Resp 16; Pulse Ox 99% on R/A; dd2 14:15 Body Mass Index 29.71 (96.62 kg, 180.34 cm) ll1 14:15 Pain Scale: Adult ll1 Wander Coma Score: 16:53 Eye Response: spontaneous(4). Motor Response: obeys commands(6). Verbal Response: dd2 oriented(5). Total: 15. ED Course: 14:05 Patient arrived in ED. cj3 14:07 Agustin Reinoso FNP-C [facility]. dr5 14:07 Mike Landers MD is Attending Physician. dr5 14:11 Arm band placed on. ll1 14:13 Triage completed. ll1 16:47 US Extremity Venous Unilateral Ltd In Process Unspecified. EDMS 16:53 Patient has correct armband on for positive identification. Bed in low position. Call dd2 light in reach. Client placed on continuous cardiac and pulse oximetry monitoring. NIBP monitoring applied. Door closed. Noise minimized. Pillow given. Verbal reassurance given. 16:53 No provider procedures requiring assistance completed. Patient maintains SpO2 dd2 saturation greater than 95% on room air. 17:24 Provided Education on: D/C EDUCATION. dd2 17:24 IV discontinued, intact, bleeding controlled, No redness/swelling at site. Pressure dd2 dressing applied. Administered Medications: No medications were administered Medication: 16:53 VIS not applicable for this client. dd2 Outcome: 16:59 Discharge ordered by . dr5 17:24 Discharged to home ambulatory, dd2 17:24 Condition: stable 17:24 Discharge instructions given to patient, Instructed on discharge instructions, follow up and referral plans. Demonstrated understanding of instructions, follow-up care, 17:24 Patient left the ED. dd2 Signatures: Dispatcher [employer] EDMS Alley Bustillos, RN RN ll1 ELE DEGROOT RN RN dd2 Agustin Reinoso, FORESTRY LABORER-C FORESTRY LABORER-Cdr5 Karlie Rodriguez cj3 Corrections: (The following items were deleted from the chart) 14:17 14:13 Chief complaint: Patient states: Sent in to check for blood clot in RLE ll1 ll1 14:17 14:15 Pulse 74bpm; Resp 16bpm; Pulse Ox 98%; Temp 97.8F; 96.62 kg; Height 5 ft. 11 in.; ll1 BMI: 29.7; Pain 0/10, Adult; ll1
[2025-04-16 17:58] VITALS: TEMP 97.8
[2025-04-16 18:00] VITALS: BP 121/67; O2SAT 99
== END 2025-04-16 17:24 | disposition home or self-care (01) ==
LOC: ER 14:01
DX: M79.604 Pain in right leg (principal); C61 Malignant neoplasm of prostate
CPT/HCPCS: 36415; 80048; 85025; 93971; 99283